=== PATIENT | male | born 1980 | race Caucasian/White ===

== ENCOUNTER 2017-04-03 18:49 | Inpatient (IN) ==
[2017-04-03] MEDS ORDERED: NS 1,000 ML IV ONE (18:55)
[2017-04-03] MEDS ORDERED: SALINE FLUSH 10ml SYRINGE IVF PRN (18:56)
--- NOTE | 2017-04-03 19:03 | Emergency Department Report ---
Overdose HPI - General Stated Complaint: Overdose Time Seen by Provider: 04/03/17 18:54 Source: patient, family, EMS Mode of arrival: EMS Limitations: altered mental status - History of Present Illness HPI Narrative: Patient was in an argument earlier in the day with his girlfriend, and then sometime 26 and 6:30 the patient took a handful of Ativan and Flexeril that he had left over. Family found the patient around 6:30, and states that he was lethargic and hypersomnolent, and he had 2 empty pill bottles lying next to him. Patient has attempted overdose with suicidal ideation in the past, but at this time we can get no further information about this. Patient might have taken as many as 60 0.5 mg Ativan and 30 10 mg Flexeril. Prescriptions were written earlier in the month, but the family has noted whether he took any of those medications prior to tonight. EMS found the patient to be lethargic and somnolent, but maintaining his O2 saturations. He was given 2 doses of flumazenil with little improvement. MD complaint: intentional overdose Onset (ago): hour(s) Timing confirmed by: family member - Related Data Home Medications Medication Instructions Recorded Confirmed BuPROPion XL [Wellbutrin Xl] 300 mg PO DAILY 04/03/17 04/03/17 Budesonide [Entocort EC] 9 mg PO DAILY 04/03/17 04/03/17 Citalopram [Celexa] 40 mg PO HS 04/03/17 04/03/17 Cyclobenzaprine [Flexeril] 10 mg PO TID PRN 04/03/17 04/03/17 Diphenoxylate/Atropine [Lomotil] 1 tab PO QID PRN 04/03/17 04/03/17 Hydrocortisone Sod Succinate 100 mg IM Q2M 04/03/17 04/03/17 [Solu-Cortef] Infliximab [Remicade] 100 mg IV Q2M 04/03/17 04/03/17 LORazepam [Ativan] 0.5 mg PO BID PRN 04/03/17 04/03/17 Mesalamine [Pentasa] 1,000 mg PO BID 04/03/17 04/03/17 Oxycodone/Apap 10 [Percocet 1 tab PO Q6H PRN 04/03/17 04/03/17 10/325] azaTHIOprine [Imuran] 100 mg PO DAILY 04/03/17 04/03/17 Allergies Allergy/AdvReac Type Severity Reaction Status Date / Time No Known Allergies Allergy Verified 04/03/17 19:08 Review of Systems Review of Systems: Review of systems is significantly limited due to the patient's lethargy and somnolence [facility] Patient Stated Medical History Other GI Yes: CROHNS DISEASE Depression Yes Substance Use Disorder Yes Other Behavioral Health Yes: [facility] Medical History (Last Updated 01/17/17 @ 11:36 by HOWARD Betancourt) Anxiety (Chronic Medical) Crohn disease (Chronic Medical) Depression (Chronic Medical) Depression with suicidal ideation/suicide attempts, overdose Surgical History: hip replacement. colectomy resection Family History: Family History (Last Updated 01/17/17 @ 11:38 by HOWARD Betancourt) Mother Arthritis High blood pressure High cholesterol Father High blood pressure Arthritis Paternal Grandfather Lung cancer Heart attack - Social History Smoking status: Current every day smoker Physical Exam - Limitations Limitations: altered mental status (patient is significantly altered secondary to medication/drugs,) - General General appearance: alert, lethargic - Normal Exams: Head:: Normocephalic without trauma Eyes:: Pupils are PERRLA w/ EOMI, No scleral icterus, irritation, or foreign bodies noted ENMT:: No facial trauma, nasal exudates, pharyngeal erythema, or exudates are noted Neck:: Full range of motion, without adenopathy, JVD, bruits or thyromegaly Chest/Respirations:: Clear all marsh, with good airflow, and symmetry bilaterally Cardiovascular:: Regular rate and rhythm, without murmur or gallop, Pulses 2+ all extremities, capillary refill, <2 seconds all extremities Abdomen:: Bowel sounds positive, soft, non-tender, non-distended, no hepatosplenomegaly, masses or bruits noted Lymphatic:: No lymphadenopathy, or lymphedema noted Musculoskeletal:: No tenderness, or deformity noted, good range of motion, all extremities Integumentary:: No rashes, hives, or bruising noted, hair and nails, without abnormality Neurological:: cranial nerves, exams w/o gross deficits, to observation - Neurological Exam Neurological exam: Present: CN II-XII intact, motor sensory deficit, reflexes normal. Absent: alert, oriented X3 - Psychiatric Psychiatric exam: Present: depressed. Absent: normal affect, normal mood Course Vital Signs Temperature 97.1 F 04/03/17 18:49 Pulse Rate 112 H 04/03/17 18:49 Respiratory Rate 20 04/03/17 18:49 Blood Pressure 152/94 H 04/03/17 18:49 Pulse Oximetry 99 04/03/17 18:49 Temperature 97.1 F 04/03/17 18:49 Pulse Rate 92 04/03/17 19:18 Respiratory Rate 20 04/03/17 18:49 Blood Pressure 152/94 H 04/03/17 18:49 Pulse Oximetry 99 04/03/17 18:49 Overdose - MDM Narrative Medical decision making narrative: Patient initially tachycardic, given 1 L normal saline IV fluid bolus Despite multiple aggressive attempts to encourage the patient to engage in conversation and give answers to questions, patient remained severely somnolent , would arouse to pain, but would refuse to answer questions and immediately fall back asleep. CBC - normal CMP - normal UDS - normal, except positive for opiates try cyclics benzodiazepines and marijuana EtOH - negative Tylenol/salicylates - normal Patient discussed with Dr. Pepe, admitted for outpatient observation in the ICU. - Lab Data Result diagrams: 04/03/17 19:07 04/03/17 19:07 Lab Results 04/03/17 04/03/17 04/03/17 Range/Units 18:49 19:07 19:07 WBC 11.7 H (4.5-11.0) T/MM3 RBC 3.81 L (4.50-5.90) M/MM3 Hgb 12.9 L (13.5-17.5) GM/DL Hct 37.5 L (41-53) % MCV 98.4 (80-100) UM3 MCH 33.9 (26-34) UUG MCHC 34.4 (31-37) GM/DL RDW Std Deviation 45.7 (36.9-50.2) FL Plt Count 351 (130-400) T/MM3 MPV 9.4 (9.4-12.4) UM3 Immature Gran % (Auto) 0.2 (0.0-0.5) % Neut % (Auto) 65.1 (33-66) % Lymph % (Auto) 21.0 L (23-45) % [place] % (Auto) 8.2 (0-9.0) % Eos % (Auto) 4.9 H (0-4) % Baso % (Auto) 0.6 (0-2) % Neut # (Auto) 7.6 (1.8-7.7) T/MM3 Lymph # (Auto) 2.5 (1-4.8) T/MM3 [place] # (Auto) 1.0 H (0-0.8) T/MM3 Eos # (Auto) 0.6 H (0-0.5) T/MM3 Baso # (Auto) 0.1 (0-0.2) T/MM3 Abs Immat Gran (auto) 0.02 (0.00-0.03) T/MM3 Turbidity < 20 (0-20) Sodium 142 (134-144) MEQ/L Potassium 3.5 L (3.6-5) MEQ/L Chloride 105 (98-107) MEQ/L Carbon Dioxide 27 (22-30) MEQ/L Anion Gap 10 (5-15) MEQ/L BUN 9.0 (9-20) MG/DL Creatinine 0.9 (0.8-1.5) MG/DL GFR Calculation 95 BUN/Creatinine Ratio 10 (6-26) RATIO Glucose 74 L (75-110) MG/DL Calculated Osmolality 271 (261-280) MOSM/KG Calcium 9.4 (8.4-10.2) MG/DL Total Bilirubin 0.60 (0.20-1.30) MG/DL Icterus Index < 2 (0-7) AST 26 (17-59) U/L ALT 34 (21-72) U/L Alkaline Phosphatase 96 (38-126) U/L Total Protein 8.0 (6.3-8.2) G/DL Albumin 4.0 (3.5-5.0) G/DL Globulin 4.0 H (2.4-3.6) G/DL Albumin/Globulin Ratio 1.0 L (1.1-2.2) RATIO Specimen Hemolysis 41 H (0-25) Ur Collection Type Urine, catheter Urine Color Yellow (YELLOW) Urine Clarity Clear Urine pH 6.0 (5.0-8.0) Ur Specific [place] 1.010 L (1.015-1.025) Urine Protein Negative (NEGATIVE) Urine Glucose (UA) Negative (NEGATIVE) Urine Ketones Negative (NEGATIVE) Urine Occult Blood Trace-intact (NEGATIVE) Urine Nitrate Negative (NEGATIVE) Urine Bilirubin Negative (NEGATIVE) Urine Urobilinogen 0.2 (NORMAL) EU/DL Ur Leukocyte Esterase Negative (NEGATIVE) Urinalysis Comment Microscopic not ind. Salicylates < 1.0 L (2-20) MG/DL Urine Opiates Screen ng/mL Ur Oxycodone Screen ng/mL Urine Methadone Screen ng/mL Ur Propoxyphene Screen ng/mL Acetaminophen < 10 L (10-30) UG/ML Ur Barbiturates Screen ng/mL U Tricyclic Antidepress ng/mL Ur Phencyclidine Scrn ng/mL Ur Amphetamines Screen ng/mL U Methamphetamines Scrn ng/mL U Benzodiazepines Scrn ng/mL Urine Cocaine Screen ng/mL U Cannabinoids Screen ng/mL Ur Drug Screen Confirm Alcohol, Quantitative <10 (<10) MG/DL 04/03/17 04/03/17 Range/Units 19:07 19:07 WBC (4.5-11.0) T/MM3 RBC (4.50-5.90) M/MM3 Hgb (13.5-17.5) GM/DL Hct (41-53) % MCV (80-100) UM3 MCH (26-34) UUG MCHC (31-37) GM/DL RDW Std Deviation (36.9-50.2) FL Plt Count (130-400) T/MM3 MPV (9.4-12.4) UM3 Immature Gran % (Auto) (0.0-0.5) % Neut % (Auto) (33-66) % Lymph % (Auto) (23-45) % [place] % (Auto) (0-9.0) % Eos % (Auto) (0-4) % Baso % (Auto) (0-2) % Neut # (Auto) (1.8-7.7) T/MM3 Lymph # (Auto) (1-4.8) T/MM3 [place] # (Auto) (0-0.8) T/MM3 Eos # (Auto) (0-0.5) T/MM3 Baso # (Auto) (0-0.2) T/MM3 Abs Immat Gran (auto) (0.00-0.03) T/MM3 Turbidity (0-20) Sodium (134-144) MEQ/L Potassium (3.6-5) MEQ/L Chloride (98-107) MEQ/L Carbon Dioxide (22-30) MEQ/L Anion Gap (5-15) MEQ/L BUN (9-20) MG/DL Creatinine (0.8-1.5) MG/DL GFR Calculation BUN/Creatinine Ratio (6-26) RATIO Glucose (75-110) MG/DL Calculated Osmolality (261-280) MOSM/KG Calcium (8.4-10.2) MG/DL Total Bilirubin (0.20-1.30) MG/DL Icterus Index (0-7) AST (17-59) U/L ALT (21-72) U/L Alkaline Phosphatase (38-126) U/L Total Protein (6.3-8.2) G/DL Albumin (3.5-5.0) G/DL Globulin (2.4-3.6) G/DL Albumin/Globulin Ratio (1.1-2.2) RATIO Specimen Hemolysis (0-25) Ur Collection Type Urine Color (YELLOW) Urine Clarity Urine pH (5.0-8.0) Ur Specific [place] (1.015-1.025) Urine Protein (NEGATIVE) Urine Glucose (UA) (NEGATIVE) Urine Ketones (NEGATIVE) Urine Occult Blood (NEGATIVE) Urine Nitrate (NEGATIVE) Urine Bilirubin (NEGATIVE) Urine Urobilinogen (NORMAL) EU/DL Ur Leukocyte Esterase (NEGATIVE) Urinalysis Comment Salicylates (2-20) MG/DL Urine Opiates Screen Positive ng/mL Ur Oxycodone Screen Negative ng/mL Urine Methadone Screen Negative ng/mL Ur Propoxyphene Screen Negative ng/mL Acetaminophen (10-30) UG/ML Ur Barbiturates Screen Negative ng/mL U Tricyclic Antidepress Positive ng/mL Ur Phencyclidine Scrn Negative ng/mL Ur Amphetamines Screen Negative ng/mL U Methamphetamines Scrn Negative ng/mL U Benzodiazepines Scrn Positive ng/mL Urine Cocaine Screen Negative ng/mL U Cannabinoids Screen Positive ng/mL Ur Drug Screen Confirm Sent out Alcohol, Quantitative (<10) MG/DL Disposition Clinical Impression: Depression with suicidal ideation Polysubstance overdose Qualifiers: Encounter type: initial encounter Injury intent: intentional self-harm Qualified Code(s): T50.902A - Poisoning by unspecified drugs, medicaments and biological substances, intentional self-harm, initial encounter Disposition: [facility] Condition: Stable Prescriptions: No Action Cyclobenzaprine [Flexeril] 10 mg PO TID PRN PRN Reason: Prn Orders azaTHIOprine [Imuran] 100 mg PO DAILY Hydrocortisone Sod Succinate [Solu-Cortef] 100 mg IM Q2M Diphenoxylate/Atropine [Lomotil] 1 tab PO QID PRN PRN Reason: Diarrhea Mesalamine [Pentasa] 1,000 mg PO BID BuPROPion XL [Wellbutrin Xl] 300 mg PO DAILY Budesonide [Entocort EC] 9 mg PO DAILY Infliximab [Remicade] 100 mg IV Q2M Oxycodone/Apap 10/325 [Percocet 10/325] 1 tab PO Q6H PRN PRN Reason: Pain LORazepam [Ativan] 0.5 mg PO BID PRN PRN Reason: Prn Orders Citalopram [Celexa] 40 mg PO HS - Seen By: physician
--- OUTSIDE RECORDS SUMMARY | 2017-04-03 19:15 | External Medical Summary | Referral Summary ---
:1980 Author Organization [facility] Address [address] [place] [address] Care Team Providers Name Role Phone Reji Huerta Primary Care Physician Encounter VC Date(s): 03/18/16 - 03/18/16 [facility] [address] [place] [address]- us Discharge Disposition: 01-Home or Self Care Attending Physician: Barby Gonzalez III, MD Admitting Physician: Barby Gonzalez III, MD Vital Signs No data available for this section Problem List Condition Effective Dates Status Health Status Informant Acne(Confirmed) 1994 Active Acute low back pain(Confirmed) Active Acute pain(Confirmed) Active Depression(Confirmed) Active Allergic rhinitis/Hay Fever(Confirmed) 2003 Active Amblyopia/Lazy eye(Confirmed) 1993 Active Asthma(Confirmed) 1992 Active At risk for infection(Confirmed)1 Active 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 Chronic depression(Confirmed) Active Constipation(Confirmed) 1994 Active Crohn's disease(Confirmed) Active High risk medication use(Confirmed) Active Impaired skin integrity(Confirmed)2 Active Knowledge deficit(Confirmed)3 Active Chronic fatigue(Confirmed) Active Sacroiliitis(Confirmed) Active Tobacco user(Confirmed) Active patient Ulcers(Confirmed) Active Chicken pox(Confirmed) 1986 Active 1Problem added automatically by system based on initiation of At Risk for Infection in Nutrition Planof [id number] added automatically by system based on initiation of Impaired Skin Integrity Plan of [id number] added automatically by system based on initiation of Knowledge Deficit Plan of Care Allergies, Adverse Reactions, Alerts Substance Reaction Severity Status Demerol HCl Hives Active meperidine Hives Active Medications azaTHIOprine 50 mg oral tablet 100 mg 2 tabs, Oral, Daily, 2 tabs daily with food, # 60 tabs, 6 Refill(s), Pharmacy: [facility] #[id number], 2 tabs Oral Daily,Instr:2 tabs daily ; with food Start Date: 09/04/15 Status: OrderedBlood pressure med Blood pressure med, Thinks it is lisinopril 5-10mg. Prescribed by Dr. Montiel, 0 Refill(s) Start Date: 05/05/15 Status: Orderedbudesonide 3 mg oral capsule, extended release 9 mg 3 caps, Oral, Daily, # 90 caps, 11 Refill(s), Pharmacy: [facility] # [id number], 3 caps Oral Daily Start Date: 09/04/15 Status: OrderedCeleXA 20 mg oral tablet 20 mg 1 tabs, Oral, Daily, DC order for Vibryd, # 30 tabs, 1 Refill(s), Pharmacy : [facility] #[id number], 1 tabs Oral Daily,Instr:DC order for Vibryd Start Date: 02/12/16 Status: OrderedPentasa 500 mg oral capsule, extended release See Instructions, 2 caps Oral BID, # 96 caps, 0 Refill(s), samples given to patient (Rx) Start Date: 04/22/15 Status: OrderedPercocet 10/325 oral tablet 1 tabs, Oral, q6hr, as needed for pain, rx must last 30 days, # 120 tabs, 0 Refill(s) Start Date: 03/07/16 Status: OrderedRemicade 100 mg intravenous injection See Instructions, Infuse 10mg/kg IV q [address] gonzalez on 03/18/16 Premed: Solu-cortef 100mg IV push. Diagnosis: K50.80, may take tylenol and chinmay for oral premeds, # 1 vials, 0 Refill(s), other reason (Rx) Start Date: 12/25/13 Status: OrderedSolu-CORTEF Act-O-Vial 100 mg injection See Instructions, 100mg iv push premed for remicade, # 1 vials, 0 Refill(s), other reason (Rx) Start Date: 12/25/13 Status: OrderedSoma 350 mg oral tablet 350 mg 1 tabs, Oral, TID, N. Darrian's RX must last 30 days, # 90 tabs, 0 Refill (s) Start Date: 03/11/16 Status: OrderedWellbutrin XL 300 mg/24 hours oral tablet, extended release 300 mg 1 tabs, Oral, Daily, # 30 tabs, 11 Refill(s), Pharmacy: [facility] #[id number], 1 tabs OralDaily Start Date: 09/04/15 Status: OrderedZofran ODT 4 mg oral tablet, disintegrating 4 mg 1 tabs, Oral, q8hr, as needed for nausea/vomiting, # 10 tabs, 0 Refill(s), Pharmacy: [facility] #[id number], 1 tabs Oral q8hr,PRN:as needed for nausea/ vomiting Start Date: 02/18/16 Status: Ordered Results No data available for this section Immunizations Vaccine Date Refusal Reason pneumococcal 13-valent conjugate vaccine 04/23/15 tetanus-diphth toxoids (Td) adult/adol 01/13/95 Procedures Procedure Date Related Diagnosis Body Site Resection Colon1 06/02/15 Colonoscopy 05/28/15 Hip replacement -RIGHT per Dr Bautista 2012 eye surgery 1993 Colectomy, partial; with resection, with colostomy or ileostomy and creation of mucofistula Colonoscopy colostomy reversed left colon resection with colostomy 1auto-populated from documented surgical case Social History Social History Type Response Smoking Status Current every day smoker; Type: Cigarettes; Tobacco use per day : 1 Pack Assessment and Plan No data available for this section
--- OUTSIDE RECORDS SUMMARY | 2017-04-03 19:15 | External Medical Summary | Referral Summary ---
:1980 Author Organization [facility] Address [address] [place] [address] Care Team Providers Name Role Phone Huerta Reji F Primary Care Physician Encounter [facility] [id number] Date(s): 03/25/16 - 03/25/16 [facility] [address] [place] [address]- [place] Discharge Diagnosis: High risk medication use Discharge Diagnosis: Chronic depression Discharge Disposition: 01-Home or Self Care Attending Physician: Candida Luke Admitting Physician: Candida Luke Vital Signs Most recent to oldest [Reference Range]: 1 Apical Heart Rate [60-100 bpm] 84 bpm (03/25/16 10:59 AM) Blood Pressure [90-140/60-90 mmHg] 112/78 mmHg (03/25/16 10:59 AM) Problem List Condition Effective Dates Status Health [...] At Risk for Infection in Nutrition Planof [id number] added automatically by system based on initiation of Impaired Skin Integrity Plan of [id number] added automatically by system based on initiation of Knowledge Deficit Plan of Care Allergies, Adverse Reactions, Alerts Substance Reaction Severity Status Demerol HCl Hives Active meperidine Hives Active Medications azaTHIOprine 50 mg oral tablet 100 mg 2 tabs, Oral, Daily, 2 tabs daily with food, # 60 tabs, 6 Refill(s), Pharmacy: [facility] #[id number], 2 tabs Oral Daily,Instr:2 tabs daily ; with food Start Date: 09/04/15 Status: OrderedBlood pressure med Blood pressure med, Thinks it is lisinopril 5-10mg. Prescribed by Dr. Montiel, 0 Refill(s) Start Date: 05/05/15 Status: Orderedbudesonide 3 mg oral capsule, extended release 9 mg 3 caps, Oral, Daily, # 90 caps, 11 Refill(s), Pharmacy: [facility] # [id number], 3 caps Oral Daily Start Date: 09/04/15 Status: OrderedCeleXA 20 mg oral tablet 20 mg 1 tabs, Oral, Daily, DC order for Vibryd, # 30 tabs, 1 Refill(s), Pharmacy : [facility] #[id number], 1 tabs Oral Daily,Instr:DC order for Vibryd [...] Daily, # 30 tabs, 11 Refill(s), Pharmacy: [facility] #[id number], 1 tabs OralDaily Start Date: 09/04/15 Status: Ordered Results No data available for this section Immunizations Vaccine Date Refusal Reason pneumococcal 13-valent conjugate vaccine 04/23/15 tetanus-diphth toxoids (Td) adult/adol 01/13/95 Procedures Procedure Date Related Diagnosis Body Site Collection of venous blood by venipuncture 03/25/16 Resection Colon1 06/02/15 Colonoscopy 05/28/15 Hip replacement [...] day : 1 Pack Assessment and Plan Extracted from: Title: Office Visit Note Author: Candida Luke Date: 03/25/16 Assessment/Plan 1.Crohn's disease history of bowel resection anddisease notwell controlled Ordered: [employer]-[place] 2.High risk medication use 3.Chronic depression on Celexa and it is helping This is a very pleasant 35-year-old male with known history of ileocolonic Crohn's disease. And history of bowel resections. Currently having a flare of his disease with multiple watery diarrhea stools . He is negative for C. difficile. Currently taking Remicade 10 mg every 8 weeks, azathioprine, budesonide and Pentasa. He ran out of his Pentasa 1-2 months ago. Overall he does not feel that the Remica de is working as well as it used to. He is been on this medication for several years. After long discussion with Dr. Gonzalez who joint us in office visit he is recommending checking blood levels for aza thioprinemetabolites as well as possibly considering changing the Remicade to another biologic.
--- OUTSIDE RECORDS SUMMARY | 2017-04-03 19:15 | External Medical Summary | Referral Summary ---
:1980 Author Organization [facility], [facility] Address [address] [place] [address] [place] [address] Care Team Providers Name Role Phone Reji Huerta Primary Care Physician Encounter VC Date(s): 10/23/14 - 10/23/14 [facility], [address] [place] [address] Discharge Disposition: 01-Home or Self Care Attending Physician: Song Colorado MD Admitting Physician: Song Colorado MD Vital Signs Most recent to oldest [Reference Range]: 1 Temperature Tympanic [36.6-38.1 degC] 36.8 degC (10/23/14 6:30 PM) Peripheral Pulse Rate [60-100 bpm] 78 bpm (10/23/14 6:30 PM) Blood Pressure [90-140/60-90 mmHg] 118/70 mmHg (10/23/14 6:30 PM) SpO2 99 % (10/23/14 6:30 PM) Problem List Condition Effective Dates Status Health Status Informant Acne(Confirmed) 1994 Active Acute low back pain(Confirmed) Active Depression(Confirmed) Active Allergic rhinitis/Hay Fever(Confirmed) 2003 Active Amblyopia/Lazy eye(Confirmed) 1994 Active Asthma(Confirmed) 1992 Active 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 Constipation(Confirmed) 1994 Active Crohn's disease(Confirmed) Active High risk medication use(Confirmed) Active Sacroiliitis(Confirmed) Active Tobacco user(Confirmed) Active patient Ulcers(Confirmed) Active Chicken pox(Confirmed) 1986 Active Allergies, Adverse Reactions, Alerts Substance Reaction Severity Status Demerol HCl Active meperidine Hives Active Medications amLODIPine 20 mg, Oral, Daily, 0 Refill(s) Start Date: 04/06/15 Status: OrderedazaTHIOprine 50 mg oral tablet 2 tabs, Oral, Daily, 2 tabs daily with food, # 60 tabs, 3 Refill(s), Pharmacy : [facility] #[id number], 2 tabs Oral Daily,Instr:2 tabs daily ; with food Start Date: 05/23/14 Status: Orderedbudesonide 3 mg oral capsule, extended release 6 mg 2 caps, Oral, Daily, # 90 unknown unit, 2 Refill(s), eRx: [facility] #[id number], TAKE 3 CAPSULES BY MOUTH EVERY MORNING. Start Date: 03/18/15 Status: OrderedPentasa 500 mg oral capsule, extended release See Instructions, 2 caps Oral BID, # 96 caps, 0 Refill(s), samples given to patient (Rx) Start Date: 04/22/15 Status: OrderedPercocet 10/325 oral tablet 1 tabs, Oral, q6hr, as needed for pain, # 60 tabs, 0 Refill(s) Start Date: 04/20/15 Status: OrderedpredniSONE 20 mg oral tablet 20 mg 1 tabs, Oral, TID, 0 Refill(s) Start Date: 04/06/15 Status: OrderedRemicade 100 mg intravenous injection See Instructions, Infuse 10mg/kg IV q 6 weeks. Premed: Solu-cortef 100mg IV push. Diagnosis: K50.80,# 1 vials, 0 Refill(s), other reason (Rx) Start Date: 12/25/13 Status: OrderedSolu-CORTEF Act-O-Vial 100 mg injection See Instructions, 100mg iv push premed for remicade, # 1 vials, 0 Refill(s), other reason (Rx) Start Date: 12/25/13 Status: OrderedSoma 350 mg oral tablet 350 mg 1 tabs, Oral, TID, N. Darrian's FILLED BY DOC FOR DR HUERTA, # 60 tabs, 0 Refill(s) Start Date: 04/08/15 Status: OrderedtraZODone 50 mg oral tablet 50 mg 1 tabs, Oral, Bedtime (once a day), # 30 tabs, 0 Refill(s), Pharmacy: [facility] #[id number], 1 tabs Oral Bedtime (once a day) Start Date: 12/23/14 Status: OrderedViibryd 20 mg oral tablet mg tabs, Oral, Daily, 0 Refill(s) Start Date: 04/06/15 Status: OrderedWellbutrin XL 150 mg/24 hours oral tablet, extended release See Instructions, 3 tabs Oral q24hr, # 60 tabs, 2 Refill(s) Start Date: 06/25/14 Status: Ordered Results No data available for this section Immunizations Vaccine Date Refusal Reason pneumococcal 13-valent conjugate vaccine 04/23/15 tetanus-diphth toxoids (Td) adult/adol 01/13/95 Procedures Procedure Date Related Diagnosis Body Site Hip replacement -RIGHT per Dr Bautista 2012 eye surgery 1993 Colectomy, partial; with resection, with colostomy or ileostomy and creation of mucofistula Colonoscopy colostomy reversed left colon resection with colostomy Social History Social History Type Response Smoking Status Current every day smoker; Type: Cigarettes; Tobacco use per day : 1 Pack Assessment and Plan Extracted from: Title: Ambulatory Patient Education Author: Song Colorado MD Date: Emergency Medicine Abdominal Pain, Adult Many things can cause abdominal pain. Usually, abdominal pain is not caused by a disease and will improve without treatment. It can often be observed and treated at home. Your health care provider will do a physical exam and possibly order blood tests and X-rays to help determine the seriousness of your pain. However, in many cases, more time must pass before a clear cause of the pain can be found. Be fore that point, your health care provider may not know if you need more testing or further treatment. HOME CARE INSTRUCTIONS Monitor your abdominal pain for any changes. The following actions may help to alleviate any discomfort you are experiencing: Only take vkzk-zxo-jzrcjmx or prescription medicines as directed by your health care provider. Do not take laxatives unless directed to do so by your health care provider. Try a clear liquid diet (broth, tea, or water) as directed by your health care provider. Slowly move to a bland diet as tolerated. SEEK MEDICAL CARE IF: You have unexplained abdominal pain. You have abdominal pain associated with nausea or diarrhea. You have pain when you urinate or have a bowel movement. You experience abdominal pain that wakes you in the night. You have abdominal pain that is worsened or improved by eating food. You have abdominal pain that is worsened with eating fatty foods. SEEK IMMEDIATE MEDICAL CARE IF: Your pain does not go away within 2 hours. You have a fever. You keep throwing up (vomiting ). Your pain is felt only in portions of the abdomen, such as the right side or the left lower portion of the abdomen. You pass bloody or black tarry stools. MAKE SURE YOU: Understand these instructions. Will watch your condition. Will get help right away if you are not doing well or get worse. Document Released: 03/08/2006 Document Revised: 03/19/2014 Document Reviewed: 02/05/2014 [facility] Patient Information 2014 [employer] [facility]. No follow up information was provided. Extracted from: Title: Office Visit Note Author: Song Colorado MD Date: 10/23/14 Assessment/Plan Abdominal pain Sent to [facility] ER for evaluation due to level of pain. A work/school note was offered and deferred by the patient. Nursing assitance toER was offered and declined. Crohn's disease This issue is stable and appropriate refills, lab, and f/u have been discussed. Denies recent blood in the stool or diarrhea. Limping See above. To ER for evaluation.
--- OUTSIDE RECORDS SUMMARY | 2017-04-03 19:15 | External Medical Summary | Referral Summary ---
:1980 Author Organization [facility], [facility] Address [address] [place] [address] [place] [address] Care Team Providers Name Role Phone Reji Huerta Primary Care Physician Encounter VC Date(s): 04/23/15 - 04/23/15 [facility] [place] [place] [address] [place] Discharge Disposition: 01-Home or Self Care Attending Physician: Reji Huerta MD Vital Signs No data available for this section Problem List Condition Effective Dates Status Health Status Informant Acne(Confirmed) 1994 Active Acute low back pain(Confirmed) Active Depression(Confirmed) Active Allergic rhinitis/Hay Fever(Confirmed) 2003 Active Amblyopia/Lazy eye(Confirmed) 1993 Active Asthma(Confirmed) 1991 Active 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 Constipation(Confirmed) 1994 Active Crohn's disease(Confirmed) Active [...] # 60 tabs, 3 Refill(s), Pharmacy : [facility] #[id number], 2 tabs Oral Daily,Instr:2 tabs daily ; with food Start Date: 05/23/14 Status: Orderedbudesonide 3 mg oral capsule, extended release 6 mg 2 caps, Oral, Daily, # 90 unknown unit, 2 Refill(s), eRx: [facility] #[id number], TAKE 3 CAPSULES BY MOUTH EVERY MORNING. [...] tablet 350 mg 1 tabs, Oral, TID, Juli Colmenares's FILLED BY DOC FOR DR HUERTA, # 60 tabs, 0 Refill(s) Start Date: 04/08/15 Status: OrderedtraZODone 50 mg oral tablet 50 mg 1 tabs, Oral, Bedtime (once a day), # 30 tabs, 0 Refill(s), Pharmacy: [facility] #[id number], 1 tabs Oral Bedtime (once a day) [...]
--- OUTSIDE RECORDS SUMMARY | 2017-04-03 19:15 | External Medical Summary | Referral Summary ---
:1980 Author Organization [facility], [facility] Address [address] [place] [address] Care Team Providers Name Role Phone Reji Huerta Primary Care Physician Encounter VC Date(s): 09/07/15 - 09/07/15 [facility], [facility] [address] [place] [address]- [place] Discharge Disposition: 01-Home or Self Care Attending Physician: Barby Murray III, MD Admitting Physician: Barby Murray III, MD Vital Signs No data available for this section Problem List Condition Effective Dates Status Health Status Informant Acne(Confirmed) 1994 Active Acute low back pain(Confirmed) Active Acute pain(Confirmed) Active Depression(Confirmed) Active Allergic rhinitis/Hay Fever(Confirmed) 2003 Active Amblyopia/Lazy eye(Confirmed) 1993 Active Asthma(Confirmed) 1992 Active At risk for infection(Confirmed)1 Active 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 Constipation(Confirmed) 1994 Active Crohn's disease(Confirmed) Active High risk medication use(Confirmed) Active Impaired skin integrity(Confirmed)2 Active Knowledge deficit(Confirmed)3 Active Sacroiliitis(Confirmed) Active Tobacco user(Confirmed) Active patient Ulcers(Confirmed) Active Chicken pox(Confirmed) 1986 Active 1Problem added automatically by system based on initiation of At Risk for Infection in Nutrition Planof [id number] added automatically by system based on initiation of Impaired Skin Integrity Plan of [id number] added automatically by system based on initiation of Knowledge Deficit Plan of Care Allergies, Adverse Reactions, Alerts Substance Reaction Severity Status Demerol HCl Hives Active meperidine Hives Active Medications amLODIPine 20 mg, Oral, Daily, 0 Refill(s) Start Date: 04/06/15 Status: OrderedazaTHIOprine 50 mg oral tablet 100 mg 2 tabs, Oral, Daily, 2 tabs daily with food, # 60 tabs, 6 Refill(s), Pharmacy: [facility] #[id number], 2 tabs Oral Daily,Instr:2 tabs daily ; with food Start Date: 09/04/15 Status: OrderedBlood pressure med Blood pressure med, Thinks it is lisinopril 5-10mg. Prescribed by Dr. Montiel, 0 Refill(s) Start Date: 05/05/15 Status: Orderedbudesonide 3 mg oral capsule, extended release 9 mg 3 caps, Oral, Daily, # 90 caps, 11 Refill(s), Pharmacy: [facility] # [id number], 3 caps Oral Daily Start Date: 09/04/15 Status: Orderedibuprofen 600 mg oral tablet 600 mg 1 tabs, Oral, q6hr, 0 Refill(s) Start Date: 06/05/15 Status: OrderedPentasa 500 mg oral capsule, extended release See Instructions, 2 caps Oral BID, # 96 caps, 0 Refill(s), samples given to patient (Rx) Start Date: 04/22/15 Status: OrderedPercocet 10/325 oral tablet 1 tabs, Oral, q6hr, as needed for pain, # 120 tabs, 0 Refill(s) Start Date: 08/10/15 Status: OrderedpredniSONE 10 mg oral tablet 10 mg 1 tabs, Oral, Daily, 3 a day and call once he starts the remicade and will instruct on taper, # 30 tabs, 1 Refill(s), Pharmacy: [facility] # [id number], 1 tabs Oral Daily,Instr:3 a day and call once he starts the remicade and will instruct on t... Start Date: 09/04/15 Status: OrderedRemicade 100 mg intravenous injection See [...] tablet 350 mg 1 tabs, Oral, TID, NJoaquin Colmenares's, # 90 tabs, 0 Refill(s) Start Date: 08/10/15 Status: OrderedtraZODone 50 mg oral tablet 50 mg 1 tabs, Oral, Bedtime (once a day), # 30 tabs, 0 Refill(s), Pharmacy: [facility] #[id number], 1 tabs Oral Bedtime (once a day) Start Date: 12/23/14 Status: OrderedViibryd 20 mg oral tablet mg tabs, Oral, Daily, 0 Refill(s) Start Date: 04/06/15 Status: OrderedWellbutrin XL 300 mg/24 hours oral tablet, extended release 300 mg 1 tabs, Oral, Daily, # 30 tabs, 11 Refill(s), Pharmacy: [facility] #[id number], 1 tabs OralDaily Start Date: 09/04/15 Status: Ordered Results No data available for this section Immunizations Vaccine Date Refusal Reason pneumococcal 13-valent conjugate vaccine 04/23/15 tetanus-diphth toxoids (Td) adult/adol 01/13/95 Procedures Procedure Date Related Diagnosis Body Site Resection Colon1 06/02/15 Hip replacement -RIGHT per Dr Bautista 2012 [...]
--- OUTSIDE RECORDS SUMMARY | 2017-04-03 19:15 | External Medical Summary | Referral Summary ---
:1980 Author Organization [facility], [facility] Address [address] [place] [address] Care Team Providers Name Role Phone Bradley Reji Garcia Primary Care Physician Encounter VC Date(s): 12/08/14 - 12/08/14 [facility], [facility] [address] [place] [address] [place] Discharge Disposition: 01-Home or Self Care Attending Physician: Barby Murray III, MD Admitting Physician: Barby Murray III, MD Referring Physician: Barby Murray III, MD Vital Signs [...] At Risk for Infection in Nutrition Planof [id number] added automatically by system based on initiation of Impaired Skin Integrity Plan of [id number] added automatically by system based on initiation of Knowledge Deficit Plan of Care Allergies, Adverse Reactions, Alerts Substance Reaction Severity Status Demerol HCl Hives Active meperidine Hives Active Medications amLODIPine 20 mg, Oral, Daily, 0 Refill(s) Start Date: 04/06/15 Status: OrderedazaTHIOprine 50 mg oral tablet 100 mg 2 tabs, Oral, Daily, 2 tabs daily with food, # 60 tabs, 3 Refill(s), Pharmacy: [facility] #[id number], 2 tabs Oral Daily,Instr:2 tabs daily ; with food Start Date: 05/06/15 Status: OrderedBlood pressure med Blood pressure med, Thinks it is lisinopril 5-10mg. Prescribed by Dr. Montiel, 0 Refill(s) Start Date: 05/05/15 Status: Orderedbudesonide 3 mg oral capsule, extended release 9 mg 3 caps, Oral, Daily, # 90 caps, 11 Refill(s), Pharmacy: [facility] # [id number], 3 caps Oral Daily Start Date: 05/14/15 Status: OrderedColace 100 mg oral capsule 100 mg 1 caps, Oral, BID, 0 Refill(s) Start Date: 06/05/15 Status: Orderedibuprofen 600 mg oral tablet 600 [...] # 120 tabs, 0 Refill(s) Start Date: 06/08/15 Status: OrderedRemicade 100 mg intravenous injection See [...] 350 mg 1 tabs, Oral, TID, N. Darrian's, # 90 tabs, 0 Refill(s) Start Date: 06/08/15 Status: OrderedtraZODone 50 mg oral tablet 50 mg 1 tabs, Oral, Bedtime (once a day), # 30 tabs, 0 Refill(s), Pharmacy: [facility] #[id number], 1 tabs Oral Bedtime (once a day) [...] Type: Cigarettes; Tobacco use per day : Less than Pack Assessment and Plan No data available for this section
--- OUTSIDE RECORDS SUMMARY | 2017-04-03 19:15 | External Medical Summary | Referral Summary ---
:1980 Author Organization [facility] Address [address] [place] [address] Care Team Providers Name Role Phone Reji Huerta Primary Care Physician Encounter VC Date(s): 03/30/15 - 03/30/15 [facility] [address] [place] [address]- [place] Discharge Disposition: 01-Home or Self Care Attending Physician: Barby Gonzalez III, MD Admitting Physician: Barby Gonzalez III, MD Referring Physician: Barby Gonzalez III, MD Vital Signs No data available for this section Problem List Condition Effective Dates Status Health Status Informant Acne(Confirmed) 1994 Active Acute low back pain(Confirmed) Active Allergic rhinitis/Hay Fever(Confirmed) 2003 Active Amblyopia/Lazy eye(Confirmed) 1993 Active Asthma(Confirmed) 1991 Active 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 Constipation(Confirmed) 1994 Active Crohn's disease(Confirmed) Active Depression(Confirmed) Active High risk medication use(Confirmed) Active Sacroiliitis(Confirmed) Active Ulcers(Confirmed) Active Chicken pox(Confirmed) 1986 Active Allergies, Adverse Reactions, Alerts Substance Reaction Severity Status Demerol HCl Active meperidine Hives Active Medications azaTHIOprine 50 mg oral tablet 2 tabs, Oral, Daily, 2 tabs daily with food, # 60 tabs, 3 Refill(s), Pharmacy : [facility] #[id number], 2 tabs Oral Daily,Instr:2 tabs daily ; with food Start Date: 05/23/14 Status: Orderedbudesonide 3 mg oral capsule, extended release See Instructions, TAKE 3 CAPSULES BY MOUTH EVERY MORNING., # 90 unknown unit, 2 Refill(s), eRx: [facility] #[id number], TAKE 3 CAPSULES BY MOUTH EVERY MORNING. Start Date: 03/18/15 Status: OrderedPercocet 10/325 oral tablet 1 tabs, Oral, q6hr, as needed for pain, # 50 tabs, 0 Refill(s) Start Date: 03/03/15 Status: OrderedPercocet 7.5/325 oral tablet 1 tabs, Oral, q6hr, as needed for pain, # 30 tabs, 0 Refill(s) Start Date: 12/01/14 Status: OrderedRemicade 100 mg intravenous injection See Instructions, 10mg/kg iv q 6 weeks for diag 555.[address] gonzalez premed solucortef 100mg iv, # 1 vials, 0 Refill(s), other reason (Rx) Start Date: 12/25/13 Status: OrderedSolu-CORTEF Act-O-Vial 100 mg injection See Instructions, 100mg iv push premed for remicade, # 1 vials, 0 Refill(s), other reason (Rx) Start Date: 12/25/13 Status: OrderedSoma 350 mg oral tablet 350 mg 1 tabs, Oral, TID, N. Darrian's FILLED BY DOC FOR DR HUERTA, # 60 tabs, 0 Refill(s) Start Date: 02/09/15 Status: OrderedtraZODone 50 mg oral tablet 50 mg 1 tabs, Oral, Bedtime (once a day), # 30 tabs, 0 Refill(s), Pharmacy: [facility] #[id number], 1 tabs Oral Bedtime (once a day) Start Date: 12/23/14 Status: OrderedWellbutrin XL 150 mg/24 hours oral tablet, extended release See Instructions, 2 tabs Oral q24hr, # 60 tabs, 2 Refill(s) Start Date: 06/25/14 Status: Ordered Results No data available for this section Immunizations Vaccine Date Refusal Reason tetanus-diphth toxoids (Td) adult/adol 01/13/95 Procedures Procedure [...]
--- OUTSIDE RECORDS SUMMARY | 2017-04-03 19:15 | External Medical Summary | Referral Summary ---
:1980 Author Organization [facility], [facility] Address [address] [place] [address] [place] [address] Care Team Providers Name Role Phone Reji Huerta Primary Care Physician Encounter VC Date(s): 10/29/14 - 10/29/14 [facility], [address] [place] [address]- Discharge Diagnosis: Crohn's disease Discharge Disposition: 01-Home or Self Care Attending Physician: Monica Noble APRN Admitting Physician: Monica Noble APRN Referring Physician: Reji Huerta MD Vital Signs Most recent to oldest [Reference Range]: 1 Temperature Tympanic [36.6-38.1 degC] 36.7 degC (10/29/14 6:22 PM) Peripheral Pulse Rate [60-100 bpm] 74 bpm (10/29/14 6:22 PM) Blood Pressure [90-140/60-90 mmHg] 136/84 mmHg (10/29/14 6:22 PM) SpO2 99 % (10/29/14 6:22 PM) Problem List Condition Effective Dates Status Health Status Informant Acne(Confirmed) 1994 Active Acute low back pain(Confirmed) Active Depression(Confirmed) Active Allergic rhinitis/Hay Fever(Confirmed) 2003 Active Amblyopia/Lazy eye(Confirmed) 1993 Active Asthma(Confirmed) 1992 Active 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 Constipation(Confirmed) 1994 Active [...] food, # 60 tabs, 3 Refill(s), Pharmacy: [facility] #[id number], 2 tabs Oral Daily,Instr:2 tabs daily ; with food Start Date: 05/06/15 Status: OrderedBlood pressure med Blood pressure med, Thinks it is lisinopril 5-10mg. Prescribed by Dr. Montiel, 0 Refill(s) Start Date: 05/05/15 Status: Orderedbudesonide 3 mg oral capsule, extended release 6 mg 2 caps, Oral, Daily, # 90 unknown unit, 2 Refill(s), eRx: [facility] #[id number], TAKE 3 CAPSULES BY MOUTH EVERY MORNING. Start Date: 03/18/15 Status: OrderedPentasa 500 mg oral capsule, extended release See Instructions, 2 caps Oral BID, # 96 caps, 0 Refill(s), samples given to patient (Rx) Start Date: 04/22/15 Status: OrderedPercocet 10/325 oral tablet 1 tabs, Oral, q6hr, as needed for pain, # 120 tabs, 0 Refill(s) Start Date: 05/05/15 Status: OrderedpredniSONE 20 mg oral tablet 20 [...] N. Darrian's FILLED BY DOC FOR DR HURETA, # 90 tabs, 0 Refill(s) Start Date: 05/05/15 Status: OrderedtraZODone 50 mg oral tablet 50 mg 1 tabs, Oral, Bedtime (once a day), # 30 tabs, 0 Refill(s), Pharmacy: [facility] #[id number], 1 tabs Oral Bedtime (once a day) [...] : Less than Pack Assessment and Plan Extracted from: Title: Office Visit Note-IC Author: Monica Noble APRN Date: 10/29/14 Assessment/Plan Crohn's disease Encourage patient to continue to follow with Dr. Murray for Crohn's disease. Pleased that his symptoms are gradually improving. Note provided for him to be excused from work October 28 and October 29. Return October 30. Discussed with the patient I did not feel comfortable changing his pain medications. Discussed that it is important for him to follow-up with his PCP regarding chronic pain management needs. He voices understanding. Ordered: Office Visit Level 3 Est 10980
--- OUTSIDE RECORDS SUMMARY | 2017-04-03 19:15 | External Medical Summary | Referral Summary ---
:1980 Author Organization [facility], [address] [place] [address] Care Team Providers Name Role Phone Reji Huerta Primary Care Physician Encounter VC Date(s): 04/08/15 - 04/08/15 [facility] [address] [place] [address] Discharge Diagnosis: Depression Discharge Diagnosis: Crohn's disease Discharge Disposition: 01-Home or Self Care Attending Physician: Reji Huerta MD Admitting Physician: Reji Huerta MD Vital Signs Most recent to oldest [Reference Range]: 1 Blood Pressure [90-140/60-90 mmHg] 134/80 mmHg (04/08/15 10:12 AM) Problem List Condition Effective Dates Status Health Status Informant Acne(Confirmed) 1994 Active Acute low back pain(Confirmed) Active Acute pain(Confirmed) Active Depression(Confirmed) Active Allergic rhinitis/Hay Fever(Confirmed) 2003 Active Amblyopia/Lazy eye(Confirmed) 1993 Active Asthma(Confirmed) 1991 Active At risk for infection(Confirmed)1 Active 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 Constipation(Confirmed) 1994 Active Crohn's disease(Confirmed) Active High risk medication use(Confirmed) Active Impaired skin integrity(Confirmed)2 Active Knowledge deficit(Confirmed)3 Active Sacroiliitis(Confirmed) Active Tobacco user(Confirmed) Active patient Ulcers(Confirmed) Active Chicken pox(Confirmed) 1986 Active 1Problem added automatically by system based on initiation of At Risk for Infection in Nutrition Planof [id number] added automatically by system based on initiation of Impaired Skin Integrity Plan of [id number] added automatically by system based on initiation of Knowledge Deficit Plan of Care Allergies, Adverse Reactions, Alerts Substance Reaction Severity Status Demerol HCl Hives Active meperidine Hives Active Medications amLODIPine 20 mg, Oral, Daily, 0 Refill(s) Start Date: 04/06/15 Status: OrderedazaTHIOprine 50 mg oral tablet 100 mg 2 tabs, Oral, Daily, 2 tabs daily with food, # 60 tabs, 6 Refill(s), Pharmacy: [facility] #[id number], 2 tabs Oral Daily,Instr:2 tabs daily ; with food Start Date: 09/04/15 Status: OrderedBlood pressure med Blood pressure med, Thinks it is lisinopril 5-10mg. Prescribed by Dr. Montiel, 0 Refill(s) Start Date: 05/05/15 Status: Orderedbudesonide 3 mg oral capsule, extended release 9 mg 3 caps, Oral, Daily, # 90 caps, 11 Refill(s), Pharmacy: [facility] # [id number], 3 caps Oral Daily Start Date: 09/04/15 Status: OrderedPentasa 500 mg oral capsule, extended release See Instructions, 2 caps Oral BID, # 96 caps, 0 Refill(s), samples given to patient (Rx) Start Date: 04/22/15 Status: OrderedPercocet 10/325 oral tablet 1 tabs, Oral, q6hr, as needed for pain, # 120 tabs, 0 Refill(s) Start Date: 10/08/15 Status: OrderedpredniSONE 10 mg oral tablet 10 mg 1 tabs, Oral, Daily, 3 a day and call once he starts the remicade and will instruct on taper, # 30 tabs, 1 Refill(s), Pharmacy: [facility] # [id number], 1 tabs Oral Daily,Instr:3 a day and [...] 350 mg 1 tabs, Oral, TID, NJoaquin Guptan's, # 90 tabs, 0 Refill(s) Start Date: 10/08/15 Status: OrderedtraZODone 50 mg oral tablet 50 mg 1 tabs, Oral, Bedtime (once a day), # 30 tabs, 0 Refill(s), Pharmacy: [facility] #[id number], 1 tabs Oral Bedtime (once a day) Start Date: 12/23/14 Status: OrderedWellbutrin XL 300 mg/24 hours oral tablet, extended release 300 mg 1 tabs, Oral, Daily, # 30 tabs, 11 Refill(s), Pharmacy: [facility] #[id number], 1 tabs OralDaily Start Date: 09/04/15 Status: Ordered Results No data available for this section Immunizations Vaccine Date Refusal Reason pneumococcal 13-valent conjugate vaccine 04/23/15 tetanus-diphth toxoids (Td) adult/adol 01/13/95 Procedures Procedure Date Related Diagnosis Body Site Resection Colon1 06/02/15 Hip replacement -RIGHT per Dr Bautista 2013 eye surgery 1993 Colectomy, partial; with resection, with colostomy or ileostomy and creation of mucofistula Colonoscopy colostomy reversed left colon resection with colostomy 1auto-populated from documented surgical case Social History Social History Type Response Smoking Status Current every day smoker; Type: Cigarettes; Tobacco use per day : 1 Pack Assessment and Plan Extracted from: Title: Ambulatory Patient Education Author: Reji Huerta MD Date: Family Medicine Colitis Colitis is inflammation of the colon. Colitis can be a short-term or long- standing (chronic) illness. Crohn's disease and ulcerative colitis are 2 types of colitis which are chronic. They usually require lifelong treatment. CAUSES There are many different causes of colitis, including: Viruses. Germs (bacteria). Medicine reactions. SYMPTOMS Diarrhea. Intestinal bleeding. Pain. Fever. Throwing up (vomiting). Tiredness (fatigue). Weight loss. Bowel blockage. DIAGNOSIS The diagnosis of colitis is based on examination and stool or blood tests. X- rays, CT scan, and colonoscopy may also be needed. TREATMENT Treatment may include: Fluids given through the vein (intravenously). Bowel rest (nothing to eat or drink for a period of time). Medicine for pain and diarrhea. Medicines (antibiotics) that kill germs. Cortisone medicines. Surgery. HOME CARE INSTRUCTIONS Get plenty of rest. Drink enough water and fluids to keep your urine clear or pale yellow. Eat a well-balanced diet. Call your caregiver for follow-up as recommended. SEEK IMMEDIATE MEDICAL CARE IF: You develop chills. You have an oral temperature above 102 F (38.9 C), not controlled by medicine. You have extreme weakness, fainting, or dehydration. You have repeated vomiting. You develop severe belly (abdominal) pain or are passing bloody or tarry stools. MAKE SURE YOU: Understand these instructions. Will watch your condition. Will get help right away if you are not doing well or get worse. Document Released: 07/06/2005 Document Revised: 08/20/2012 Document Reviewed: 10/01/2010 [facility] Patient Information 2015 [employer]. This information is not intended to replace advice given to you by your health care provider. Make sure you discuss any questions you have with your health care provider. No follow up information was provided. Extracted from: Title: Office Visit Note Author: Reji Huerta MD Date: 04/08/15 Assessment/Plan Adjustment disorder with depressed mood, Depression Continue with the current medications. Ordered: Office Visit Level 4 Est 97666 Crohn's disease, Crohn's disease of both small and large intestine with other complication Continue with the present program of treatment and follow up with the GI doc. Ordered: Office Visit Level 4 Est 57698 Orders: budesonide, 6 mg 2 caps, Oral, Daily, # 90 unknown unit, 2 Refill(s) , [id number], TAKE 3 CAPSULES BY MOUTH EVERY MORNING. buPROPion, See Instructions, 3 tabs Oral q24hr, # 60 tabs, 2 Refill(s) carisoprodol, 350 mg 1 tabs, Oral, TID, N. Darrian's FILLED BY DOC FOR DR HUERTA, # 60 tabs, 0 Refill(s) oxyCODONE-acetaminophen, 1 tabs, Oral, q6hr, as needed for pain, # 60 tabs, 0 Refill(s)
--- OUTSIDE RECORDS SUMMARY | 2017-04-03 19:15 | External Medical Summary | Referral Summary ---
:1980 Author Organization [facility] Address [address] [place] [address] Care Team Providers Name Role Phone Bradley Reji Garcia Primary Care Physician Encounter VC Date(s): 10/27/14 - 10/27/14 [facility] [address] [place] [address] [place] Discharge Disposition: 01-Home or [...] # 60 tabs, 3 Refill(s), Pharmacy: [facility] #[id number], 2 tabs Oral Daily,Instr:2 tabs daily ; with food Start Date: 05/06/15 Status: OrderedBlood pressure med Blood pressure med, Thinks it is lisinopril 5-10mg. Prescribed by Dr. Montiel, 0 Refill(s) Start Date: 05/05/15 Status: Orderedbudesonide 3 mg oral capsule, extended release 6 mg 2 caps, Oral, Daily, # 90 unknown unit, 2 Refill(s), eRx: [facility] #[id number], TAKE 3 CAPSULES BY MOUTH EVERY MORNING. [...] N. Darrian's FILLED BY DOC FOR DR GUEVARA, # 90 tabs, 0 Refill(s) Start Date: 05/05/15 Status: OrderedtraZODone 50 mg oral tablet 50 mg 1 tabs, Oral, Bedtime (once a day), # 30 tabs, 0 Refill(s), Pharmacy: [facility] #[id number], 1 tabs Oral Bedtime (once a day) [...]
--- OUTSIDE RECORDS SUMMARY | 2017-04-03 19:15 | External Medical Summary | Referral Summary ---
:1980 Author Organization [facility] Address [address] [place] [address] [place] [address] Care Team Providers Name Role Phone Reji Huerta Primary Care Physician Encounter VC Date(s): 07/01/16 - 07/01/16 [facility] [address] [place] [address] [place] Discharge Disposition: 01-Home or Self Care Attending Physician: Reji Huerta MD Admitting Physician: Reji Huerta MD Vital Signs Most recent to oldest [Reference Range]: 1 Blood Pressure [90-140/60-90 mmHg] 104/68 mmHg (07/01/16 1:59 PM) Problem List Condition Effective Dates Status [...] At Risk for Infection in Nutrition Planof [id number] added automatically by system based on initiation of Impaired Skin Integrity Plan of [id number] added automatically by system based on initiation of Knowledge Deficit Plan of Care Allergies, Adverse Reactions, Alerts Substance Reaction Severity Status Demerol HCl Hives Active meperidine Hives Active Medications Anusol-HC 2.5% topical cream 1 tamie, Topical, TID, # 30 g, 2 Refill(s), Pharmacy: [facility] #[id number] Start Date: 05/20/16 Status: OrderedAtivan 0.5 mg oral tablet 0.5 mg 1 tabs, Oral, Bedtime (once a day), # 30 tabs, 0 Refill(s) Start Date: 07/01/16 Status: OrderedazaTHIOprine 50 mg oral tablet See Instructions, TAKE TWO TABLETS BY MOUTH DAILY, # 60 tabs, eRx: [facility] #[id number], TAKE TWO TABLETS BY MOUTH DAILY Start Date: 06/14/16 Status: Orderedbudesonide 3 mg oral capsule, extended release 9 mg 3 caps, Oral, Daily, # 90 caps, 11 Refill(s), Pharmacy: [facility] # [id number], 3 caps Oral Daily Start Date: 09/04/15 Status: OrderedCeleXA 20 mg oral tablet 20 mg 1 tabs, Oral, Daily, 2 tabs oral daily, increased by PV but he wants Dr. Huerta to refill., #30 tabs, 1 Refill(s), Pharmacy: [facility] #[id number], 1 tabs Oral Daily,Instr:2 tabs oral daily,increased by PV but he wants Dr. Huerta to refill. Start Date: 07/01/16 Status: OrderedPentasa 500 mg oral capsule, extended release See Instructions, 2 caps Oral BID, # 96 caps, 0 Refill(s), samples given to patient (Rx) Start Date: 04/22/15 Status: OrderedPercocet 10/325 oral tablet 1 tabs, Oral, q6hr, as needed for pain, rx must last 30 days, # 120 tabs, 0 Refill(s) Start Date: 06/10/16 Status: OrderedRemicade 100 mg intravenous injection See [...] 90 tabs, 0 Refill (s) Start Date: 06/10/16 Status: OrderedVistaril 25 mg oral capsule 25 mg 1 caps, Oral, TID, # 90 caps, 1 Refill(s), Pharmacy: [facility] # [id number], 1 caps Oral TID Start Date: 05/25/16 Status: OrderedWellbutrin XL 300 mg/24 hours oral tablet, extended release See Instructions, 1.5 tabs oral daily, increased by PV but pt wants Dr. Huerta to refill., # 45 tabs, 11 Refill(s), Pharmacy: [facility] #[id number], 1 tabs Oral Daily Start Date: 09/04/15 Status: Ordered Results No data available for this section Immunizations Given and Recorded Vaccine Date Status Refusal Reason pneumococcal 13-valent conjugate vaccine 04/23/15 Given tetanus-diphth toxoids (Td) adult/adol 01/13/95 Given Procedures Procedure Date Related Diagnosis Body Site Colonoscopy 06/15/16 Resection Colon1 06/02/15 Colonoscopy 05/28/15 Hip replacement [...]
--- OUTSIDE RECORDS SUMMARY | 2017-04-03 19:15 | External Medical Summary | Referral Summary ---
:1980 Author Organization Via [facility] Address [address] [place] [address] Care Team Providers Name Role Phone Reji Huerta Primary Care Physician Encounter VC Date(s): 08/26/15 - 08/26/15 [facility] [place] [address] [place] [address] Discharge Disposition: 07-Left Against Medical Advice Vital Signs Most recent to oldest [Reference Range]: 1 Temperature Oral [35.8-37.3 degC] 36.7 degC (08/26/15 5:41 PM) Peripheral Pulse Rate [60-100 bpm] 89 bpm (08/26/15 5:41 PM) Respiratory Rate [14-20 br/min] 16 br/min (08/26/15 5:41 PM) Blood Pressure [90-140/60-90 mmHg] 122/78 mmHg (08/26/15 5:41 PM) SpO2 98 % (08/26/15 5:41 PM) Problem List Condition Effective Dates Status [...] At Risk for Infection in Nutrition Planof [id number] added automatically by system based on initiation of Impaired Skin Integrity Plan of [id number] added automatically by system based on initiation of Knowledge Deficit Plan of Care Allergies, Adverse Reactions, Alerts Substance Reaction Severity Status Demerol HCl Hives Active meperidine Hives Active Medications amLODIPine 20 mg, Oral, Daily, 0 Refill(s) Start Date: 04/06/15 Status: OrderedazaTHIOprine 50 mg oral tablet 100 mg 2 tabs, Oral, Daily, 2 tabs daily with food, # 60 tabs, 3 Refill(s), Pharmacy: [facility] #[id number], 2 tabs Oral Daily,Instr:2 tabs daily ; with food Start Date: 05/06/15 Status: OrderedBlood pressure med Blood pressure med, Thinks it is lisinopril 5-10mg. Prescribed by Dr. Montiel, 0 Refill(s) Start Date: 05/05/15 Status: Orderedbudesonide 3 mg oral capsule, extended release 9 mg 3 caps, Oral, Daily, # 90 caps, 11 Refill(s), Pharmacy: [facility] # [id number], 3 caps Oral Daily Start Date: 05/14/15 [...] tabs, 0 Refill(s) Start Date: 08/10/15 Status: OrderedRemicade 100 mg intravenous injection See [...] day), # 30 tabs, 0 Refill(s), Pharmacy: [facility] #[id number], 1 tabs Oral Bedtime (once a day) [...]
--- OUTSIDE RECORDS SUMMARY | 2017-04-03 19:15 | External Medical Summary | Referral Summary ---
:1980 Author Organization [facility] Address [address] [place] [address] Care Team Providers Name Role Phone Bradley Reji Garcia Primary Care Physician Encounter VC Date(s): 05/11/15 - 05/11/15 [facility] [address] [place] [address] [place] Discharge Disposition: 01-Home or [...] food, # 60 tabs, 3 Refill(s), Pharmacy: [facility] #[id number], 2 tabs Oral Daily,Instr:2 tabs daily ; with food Start Date: 05/06/15 Status: OrderedBlood pressure med Blood pressure med, Thinks it is lisinopril 5-10mg. Prescribed by Dr. Montiel, 0 Refill(s) Start Date: 05/05/15 Status: Orderedbudesonide 3 mg oral capsule, extended release 6 mg 2 caps, Oral, Daily, # 90 unknown unit, 2 Refill(s), eRx: [facility] #[id number], TAKE 3 CAPSULES BY MOUTH EVERY MORNING. [...] day), # 30 tabs, 0 Refill(s), Pharmacy: [facility] #[id number], 1 tabs Oral Bedtime (once a day) [...]
--- OUTSIDE RECORDS SUMMARY | 2017-04-03 19:16 | External Medical Summary | Referral Summary ---
:1980 Author Organization [facility] Address [address] [place] [address] Care Team Providers Name Role Phone Reji Huerta Primary Care Physician Encounter [facility] [id number] Date(s): 05/14/15 - 05/14/15 [facility] [address] [place] [address] [place] Discharge Diagnosis: Tobacco user Discharge Diagnosis: Crohn's disease Discharge Diagnosis: High risk medication use Discharge Disposition: 01-Home or Self Care Attending Physician: Candida Luke Admitting Physician: Candida Luke Vital Signs Most recent to oldest [Reference Range]: 1 Peripheral Pulse Rate [60-100 bpm] 73 bpm (05/14/15 8:02 AM) Blood Pressure [90-140/60-90 mmHg] 106/71 mmHg (05/14/15 8:02 AM) Problem List Condition Effective Dates Status [...] food, # 60 tabs, 3 Refill(s), Pharmacy: [facility] #[id number], 2 tabs Oral Daily,Instr:2 tabs daily ; with food Start Date: 05/06/15 Status: OrderedBlood pressure med Blood pressure med, Thinks it is lisinopril 5-10mg. Prescribed by Dr. Montiel, 0 Refill(s) Start Date: 05/05/15 Status: Orderedbudesonide 3 mg oral capsule, extended release 9 mg 3 caps, Oral, Daily, # 90 caps, 11 Refill(s), Pharmacy: [facility] # [id number], 3 caps Oral Daily Start Date: 05/14/15 Status: Orderedmetoclopramide 10 mg oral tablet 10 mg 1 tabs, Oral, q6hr, # 6 tabs, 0 Refill(s), Pharmacy: [facility] # [id number], 1 tabs Oral q6hr Start Date: 05/14/15 Stop Date: 06/14/15 Status: OrderedPentasa 500 mg oral capsule, extended release See Instructions, 2 caps Oral BID, # 96 caps, 0 Refill(s), samples given to patient (Rx) Start Date: 04/22/15 Status: OrderedPercocet 10/325 oral tablet 1 tabs, Oral, q6hr, as needed for pain, # 120 tabs, 0 Refill(s) Start Date: 05/05/15 Status: OrderedRemicade 100 mg intravenous injection See [...] FILLED BY DOC FOR DR HUERTA, # 90 tabs, 0 Refill(s) Start Date: 05/05/15 Status: OrderedtraZODone 50 mg oral tablet 50 mg 1 tabs, Oral, Bedtime (once a day), # 30 tabs, 0 Refill(s), Pharmacy: [facility] #[id number], 1 tabs Oral Bedtime (once a day) [...]
--- OUTSIDE RECORDS SUMMARY | 2017-04-03 19:16 | External Medical Summary | Referral Summary ---
:1980 Author Organization [facility] Address [address] [place] [address] [place] [address] Care Team Providers Name Role Phone Reji Huerta Primary Care Physician Encounter VC Date(s): 05/05/15 - 05/05/15 [facility] [address] [place] [address]- Discharge Diagnosis: Crohn's disease Discharge Disposition: 01-Home or Self Care Attending Physician: Reji Huerta MD Admitting Physician: Reji Huerta MD Vital Signs Most recent to oldest [Reference Range]: 1 Blood Pressure [90-140/60-90 mmHg] 134/80 mmHg (05/05/15 10:43 AM) Problem List Condition Effective Dates Status [...] # 60 tabs, 3 Refill(s), Pharmacy : [facility] #[id number], 2 tabs Oral Daily,Instr:2 tabs daily ; with food Start Date: 05/23/14 Status: OrderedBlood pressure med Blood pressure med, Thinks it is lisinopril 5-10mg. Prescribed by Dr. Montiel, 0 Refill(s) Start Date: 05/05/15 Status: Orderedbudesonide 3 mg oral capsule, extended release 6 mg 2 caps, Oral, Daily, # 90 unknown unit, 2 Refill(s), eRx: [facility] #[id number], TAKE 3 CAPSULES BY MOUTH EVERY MORNING. [...] # 30 tabs, 0 Refill(s), Pharmacy: [facility] #[id number], 1 tabs Oral Bedtime (once a day) [...] Author: Reji Huerta MD Date: Family Medicine Crohn Disease Crohn disease is a long-term (chronic) soreness and redness (inflammation) of the intestines (bowel). It can affect any portion of the digestive tract, from the mouth to the anus. It can also cause prob lems outside the digestive tract. Crohn disease is closely related to a disease called ulcerative colitis (together, these two diseases are called inflammatory bowel disease). CAUSES The cause of Crohn disease is not known. One theory is that, in an easily affected person, the immune system is triggered to attack the body's own digestive tissue. Crohn disease runs in families. It se ems to be more common in certain geographic areas and amongst certain races. There are no clear-cut dietary causes. SYMPTOMS Crohn disease can cause many different symptoms since it can affect many different parts of the body. Symptoms include: Fatigue. Weight loss. Chronic diarrhea, sometime bloody. Abdominal pain and cramps. Fever. Ulcers or canker sores in the mouth or rectum. Anemia (low red blood cells). Arthritis, skin problems, and eye problems may occur. Complications of Crohn disease can include: Series of holes (perforation) of the bowel. Portions of the intestines sticking to each other (adhesions). Obstruction of the bowel. Fistula formation, typically in the rectal area but also in other areas. A fistula is an opening between the bowels and the outside, or between the bowels and another organ. A painful crack in the mucous membrane of the anus (rectal fissure). DIAGNOSIS Your caregiver may suspect Crohn disease based on your symptoms and an exam. Blood tests may confirm that there is a problem. You may be asked to submit a stool specimen for examination. X-rays and CT s cans may be necessary. Ultimately, the diagnosis is usually made after a procedure that uses a flexible tube that is inserted via your mouth or your anus. This is done under sedation and is called eithe r an upper endoscopy or colonoscopy. With these tests, the specialist can take tiny tissue samples and remove them from the inside of the bowel (biopsy). Examination of this biopsy tissue under a micros cope can reveal Crohn disease as the cause of your symptoms. Due to the many different forms that Crohn disease can take, symptoms may be present for several years before a diagnosis is made. TREATMENT Medications are often used to decrease inflammation and control the immune system. These include medicines related to aspirin, steroid medications, and newer and stronger medications to slow down the im mune system. Some medications may be used as suppositories or enemas. A number of other medications are used or have been studied. Your caregiver will make specific recommendations. HOME CARE INSTRUCTIONS Symptoms such as diarrhea can be controlled with medications. Avoid foods that have a laxative effect such as fresh fruit, vegetables, and dairy products. During flare-ups, you can rest your bowel by refraining from solid foods. Drink clear liquids frequently during the day. (Electrolyte or rehydrating fluids are best. Your caregiver can help you with suggestions.) Drink often to prevent loss of body fluids (dehydration). When diarrhea has cleared, eat small meals and more frequently. Avoid food additives and stimulants such as caffeine (coffee, tea, or chocolate). Enzyme supplements may help i f you develop intolerance to a sugar in dairy products (lactose). Ask your caregiver or dietitian about specific dietary instructions. Try to maintain a positive attitude. Learn relaxation techniques such as self-hypnosis, mental imaging, and muscle relaxation. If possible, avoid stresses which can aggravate your condition. Exercise regularly. Follow your diet. Always get plenty of rest. SEEK MEDICAL CARE IF: Your symptoms fail to improve after a week or two of new treatment. You experience continued weight loss. You have ongoing cramps or loose bowels. You develop a new skin rash, skin sores, or eye problems. SEEK IMMEDIATE MEDICAL CARE IF: You have worsening of your symptoms or develop new symptoms. You have a fever. You develop bloody diarrhea. You develop severe abdominal pain. MAKE SURE YOU: Understand these instructions. Will watch your condition. Will get help right away if you are not doing well or get worse. Document Released: 03/08/2006 Document Revised: 10/13/2014 Document Reviewed: 02/04/2008 [facility] Patient Information 2015 [facility]. This information is not intended to replace advice given to you by your health care provider. Make sure you discuss any questions you have with your health care provider. No follow up information was provided. Extracted from: Title: Office Visit Note Author: Reji Huerta MD Date: 05/05/15 Assessment/Plan Crohn's disease, Crohn's disease of both small and large intestine with other complication Continue with the current medications. Finish off the tapering of the prednisone. Continue with the pain medication. Ordered: Office Visit Level 3 Est [id number] Orders: carisoprodol, 350 mg 1 tabs, Oral, TID, NJoaquin Colmenares's FILLED BY DOC FOR DR HUERTA, # 90 tabs, 0 Refill(s) oxyCODONE-acetaminophen, 1 tabs, Oral, q6hr, as needed for pain, # 120 tabs, 0 Refill(s)
--- OUTSIDE RECORDS SUMMARY | 2017-04-03 19:16 | External Medical Summary | Referral Summary ---
:1980 Author Organization [facility] Address [address] [place] [address] Care Team Providers Name Role Phone Bradley Reji Garcia Primary Care Physician Encounter VC Date(s): 05/28/15 - 05/28/15 [facility] [address] [place] [address]- [place] Discharge Diagnosis: High risk medication use Discharge Diagnosis: Crohn's disease Discharge Diagnosis: Colonic stricture Discharge Disposition: 01-Home or Self Care Attending Physician: Barby Murray III, MD Vital Signs Most recent to oldest [Reference Range]: 1 Temperature Oral [35.8-37.3 degC] 36.7 degC (05/28/15 8:11 AM) Peripheral Pulse Rate [60-100 bpm] 81 bpm (05/28/15 8:11 AM) Respiratory Rate [14-20 br/min] 16 br/min (05/28/15 8:11 AM) Blood Pressure [90-140/60-90 mmHg] 137/70 mmHg (05/28/15 8:11 AM) SpO2 99 % (05/28/15 8:11 AM) Problem List Condition Effective Dates Status [...] food, # 60 tabs, 3 Refill(s), Pharmacy: [facility] #[id number], 2 tabs Oral Daily,Instr:2 tabs daily ; with food Start Date: 05/06/15 Status: OrderedBlood pressure med Blood pressure med, Thinks it is lisinopril 5-10mg. Prescribed by Dr. Montiel, 0 Refill(s) Start Date: 05/05/15 Status: Orderedbudesonide 3 mg oral capsule, extended release 9 mg 3 caps, Oral, Daily, # 90 caps, 11 Refill(s), Pharmacy: [facility] # [id number], 3 caps Oral Daily Start Date: 05/14/15 Status: Orderedmetoclopramide 10 mg oral tablet 10 mg 1 tabs, Oral, q6hr, # 6 tabs, 0 Refill(s), Pharmacy: [facility] # [id number], 1 tabs Oral q6hr Start Date: 05/14/15 [...] # 30 tabs, 0 Refill(s), Pharmacy: [facility] #[id number], 1 tabs Oral Bedtime (once a day) [...]
--- OUTSIDE RECORDS SUMMARY | 2017-04-03 19:16 | External Medical Summary | Referral Summary ---
:1980 Author Organization [facility] [place], [facility] Address [address] [place] [address] [place] [address] Care Team Providers Name Role Phone Reji Huerta Primary Care Physician Encounter VC Date(s): 04/06/15 - 04/06/15 [facility] [place], [address] [place] [address] [place] Discharge Diagnosis: Tobacco use Discharge Diagnosis: Crohn's disease Discharge Disposition: 01-Home or Self Care Attending Physician: Mauricio Page PA-C Admitting Physician: Mauricio Page PA-C Vital Signs Most recent to oldest [Reference Range]: 1 Temperature Tympanic [36.6-38.1 degC] 36.6 degC (04/06/15 1:53 PM) Apical Heart Rate [60-100 bpm] 76 bpm (04/06/15 1:53 PM) Blood Pressure [90-140/60-90 mmHg] 154/84 mmHg *HI* (04/06/15 1:53 PM) SpO2 98 % (04/06/15 1:53 PM) Problem List Condition Effective Dates Status [...] At Risk for Infection in Nutrition Planof [id number] added automatically by system based on initiation of Impaired Skin Integrity Plan of [id number] added automatically by system based on initiation of Knowledge Deficit Plan of Care Allergies, Adverse Reactions, Alerts Substance Reaction Severity Status Demerol HCl Hives Active meperidine Hives Active Medications amLODIPine 20 mg, Oral, Daily, 0 Refill(s) Start Date: 04/06/15 Status: OrderedazaTHIOprine 50 mg oral tablet 100 mg 2 tabs, Oral, Daily, 2 tabs daily with food, # 60 tabs, 6 Refill(s), Pharmacy: [facility] #[id number], 2 tabs Oral Daily,Instr:2 tabs daily ; with food Start Date: 09/04/15 Status: OrderedBlood pressure med Blood pressure med, Thinks it is lisinopril 5-10mg. Prescribed by Dr. Montiel, 0 Refill(s) Start Date: 05/05/15 Status: Orderedbudesonide 3 mg oral capsule, extended release 9 mg 3 caps, Oral, Daily, # 90 caps, 11 Refill(s), Pharmacy: [facility] # [id number], 3 caps Oral Daily Start Date: 09/04/15 [...] # 30 tabs, 1 Refill(s), Pharmacy: [facility] # [id number], 1 tabs Oral Daily,Instr:3 a day and [...] # 30 tabs, 0 Refill(s), Pharmacy: [facility] #[id number], 1 tabs Oral Bedtime (once a day) Start Date: 12/23/14 Status: OrderedWellbutrin XL 300 mg/24 hours oral tablet, extended release 300 mg 1 tabs, Oral, Daily, # 30 tabs, 11 Refill(s), Pharmacy: [facility] #[id number], 1 tabs OralDaily Start Date: 09/04/15 Status: [...] Pack Assessment and Plan Extracted from: Title: Crohn's disease Author: Mauricio Page PA-C Date: 04/06/15 Assessment/Plan Crohn's disease A work note was provided for the patient. Due to his history using Soma, Percocetand seeing Dr. Huerta on Monday, I declined to provide him with any additional medication. Diagnosis and treatment discussed. Patient advised to follow up with PCP in 2- 3 days. Patient stable upon discharge, alert and orientated with no apparent distress, and indicated understanding of discharge instructions. If symptoms worsen at any time, patient will go to the nearest ER for further evaluation. Tobacco use Encouragedsmoking cessation.
--- OUTSIDE RECORDS SUMMARY | 2017-04-03 19:16 | External Medical Summary | Referral Summary ---
:1980 Author Organization [facility], [address] [place] [address] Care Team Providers Name Role Phone Reji Huerta Primary Care Physician Encounter VC Date(s): 04/21/16 - 04/21/16 [facility] [place] [place] [address]- Discharge Diagnosis: Depression Discharge Diagnosis: Crohn's disease Discharge Diagnosis: Crohn's disease of both small and large intestine with other complication Discharge Disposition: 01-Home or Self Care Attending Physician: Reji Huerta MD Admitting Physician: Reji Huerta MD Vital Signs Most recent to oldest [Reference Range]: 1 Blood Pressure [90-140/60-90 mmHg] 118/64 mmHg (04/21/16 10:22 AM) Problem List Condition Effective Dates Status [...] At Risk for Infection in Nutrition Planof [id number] added automatically by system based on initiation of Impaired Skin Integrity Plan of [id number] added automatically by system based on initiation of Knowledge Deficit Plan of Care Allergies, Adverse Reactions, Alerts Substance Reaction Severity Status Demerol HCl Hives Active meperidine Hives Active Medications azaTHIOprine 50 mg oral tablet 100 mg 2 tabs, Oral, Daily, 2 tabs daily with food, # 60 tabs, 6 Refill(s), Pharmacy: [facility] #[id number], 2 tabs Oral Daily,Instr:2 tabs daily ; with food Start Date: 09/04/15 Status: OrderedBlood pressure med Blood pressure med, Thinks it is lisinopril 5-10mg. Prescribed by Dr. Montiel, 0 Refill(s) Start Date: 05/05/15 Status: Orderedbudesonide 3 mg oral capsule, extended release 9 mg 3 caps, Oral, Daily, # 90 caps, 11 Refill(s), Pharmacy: [facility] # [id number], 3 caps Oral Daily Start Date: 09/04/15 Status: OrderedCeleXA 20 mg oral tablet 20 mg 1 tabs, Oral, Daily, 2 tabs oral daily, increased by PV but he wants Dr. Huerta to refill., #30 tabs, 1 Refill(s), Pharmacy: [facility] #[id number], 1 tabs Oral Daily,Instr:DC order for Vibryd Start Date: 02/12/16 Status: OrderedNuLYTELY with Flavor Packs oral powder for reconstitution 240 mL, Oral, q15min, # 4,000 mL, 0 Refill(s), Pharmacy: [facility] # [id number] Start Date: 04/15/16 Status: OrderedPentasa 500 mg oral capsule, extended release See Instructions, 2 caps Oral BID, # 96 caps, 0 Refill(s), samples given to patient (Rx) Start Date: 04/22/15 Status: OrderedPercocet 10/325 oral tablet 1 tabs, Oral, q6hr, as needed for pain, rx must last 30 days, # 120 tabs, 0 Refill(s) Start Date: 04/11/16 Status: OrderedReglan 10 mg oral tablet 10 mg 1 tabs, Oral, q6hr, Take 30 minutes before bowel prep and every 6 hours a needed after., # 10 tabs, 0 Refill(s), Pharmacy: [facility] #[id number], 1 tabs Oral q6hr,Instr:Take 30 minutes before bowel prep and every 6 hours a needed after. Start Date: 04/15/16 Stop Date: 05/02/16 Status: OrderedRemicade 100 mg intravenous injection See [...] 90 tabs, 0 Refill (s) Start Date: 04/12/16 Status: OrderedWellbutrin XL 300 mg/24 hours oral tablet, extended release See Instructions, 1.5 tabs oral daily, increased by PV but pt wants Dr. Huerta to refill., # 45 tabs, 11 Refill(s), Pharmacy: [facility] #[id number], 1 tabs Oral Daily Start Date: 09/04/15 Status: Ordered Results No data available for this section Immunizations Vaccine Date Refusal Reason pneumococcal 13-valent conjugate vaccine 04/23/15 tetanus-diphth toxoids (Td) adult/adol 01/13/95 Procedures Procedure Date Related Diagnosis Body Site Resection Colon1 06/02/15 Colonoscopy 05/28/15 Hip replacement -RIGHT per Dr Bautista 2013 [...] Patient Education Author: Reji Huerta MD Date: Internal Medicine Crohn Disease Crohn disease is a long-lasting (chronic) disease that affects your gastrointestinal (GI) tract. It often causes irritation and swelling ( inflammation) in your small intestine and the beginning of your large intestine. However, it can affect any part of your GI tract. Crohn disease is part of a group of illnesses that are known as inflammatory bowel disease (IBD). Crohn disease may start slowly and get worse over time. Symptoms may come and go. They may also disappear for months or even years at a time (remission). CAUSES The exact cause of Crohn disease is not known. It may be a response that causes your body's defense system (immune system) to mistakenly attack healthy cells and tissues (autoimmune response). Your genes and your environment may also play a role. RISK FACTORS You may be at greater risk for Crohn disease if you: Have other family members with Crohn disease or another IBD. Use any tobacco products, including cigarettes, chewing tobacco, or electronic cigarettes. Are in your 20s. Have Eastern ancestry. SIGNS AND SYMPTOMS The main signs and symptoms of Crohn disease involve your GI tract. These include: Diarrhea. Rectal bleeding. An urgent need to move your bowels. The feeling that you are not finished having a bowel movement. Abdominal pain or cramping. Constipation. General signs and symptoms of Crohn disease may also include: Unexplained weight loss. Fatigue. Fever. Nausea. Loss of appetite. Joint pain Changes in vision. Red bumps on your skin. DIAGNOSIS Your health care provider may suspect Crohn disease based on your symptoms and your medical history. Your health care provider will do a physical exam. You may need to see a health care provider who spe cializes in diseases of the digestive tract (solvent plant operator). You may also have tests to help your health care providers make a diagnosis. These may include: Blood tests. Stool sample tests. Imaging tests, such as X-rays and CT scans. Tests to examine the inside of your intestines using a long, flexible tube that has a light and a camera on the end (endoscopy or colonoscopy). A procedure to take tissue samples from inside your bowel (biopsy) to be examined under a microscope. TREATMENT There is no cure for Crohn disease. Treatment will focus on managing your symptoms. Crohn disease affects each person differently. Your treatment may include: Resting your bowels. Drinking only clear liquids or getting nutrition through an IV for a period of time gives your bowels a chance to heal because they are not passing stools. Medicines. These may be used alone or in combination (combination therapy). These may include antibiotic medicines. You may be given medicines that help to: Reduce inflammation. Control your immune system activity. Fight infections. Relieve cramps and prevent diarrhea. Control your pain. Surgery. You may need surgery if: Medicines and other treatments are no longer working. You develop complications from severe Crohn disease. A section of your intestine becomes so damaged that it needs to be removed. HOME CARE INSTRUCTIONS Take medicines only as directed by your health care provider. If you were prescribed an antibiotic medicine, finish it all even if you start to feel better. Keep all follow-up visits as directed by your health care provider. This is important. Talk with your health care provider about changing your diet. This may help your symptoms. Your health care provide may recommend changes, such as: Drinking more fluids. Avoiding milk and other foods that contain lactose. Eating a low-fat diet. Avoiding high-fiber foods, such as popcorn and nuts. Avoiding carbonated beverages, such as soda. Eating smaller meals more often rather than eating large meals. Keeping a food diary to identify foods that make your symptoms better or worse. Do not use any tobacco products, including cigarettes, chewing tobacco, or electronic cigarettes. If you need help quitting, ask your health care provider. Limit alcohol intake to no more than 1 drink per day for non women and 2 drinks per day for men. One drink equals 12 ounces of beer, 5 ounces of wine, or 1 ounces of hard liquor. Exercise daily or as directed by your health care provider. SEEK MEDICAL CARE IF: You have diarrhea, abdominal cramps, and other gastrointestinal problems that are present almost all of the time. Your symptoms do not improve with treatment. You continue to lose weight. You develop a rash or sores on your skin. You develop eye problems. You have a fever. Your symptoms get worse. You develop new symptoms. SEEK IMMEDIATE MEDICAL CARE IF: You have bloody diarrhea. You develop severe abdominal pain. You cannot pass stools. This information is not intended to replace advice given to you by your health care provider. Make sure you discuss any questions you have with your health care provider. Document Released: 03/08/2006 Document Revised: 06/19/2015 Document Reviewed: 01/14/2015 [employer] Patient Education 2016 [employer] No follow up information was provided. Extracted from: Title: Office Visit Note Author: Reji Huerta MD Date: 04/21/16 Assessment/Plan 1.Crohn's disease, Continue with the current medications and follow ups with Dr. Gonzalez Crohn's disease of both small and large intestine with other complication Ordered: Office Visit Level 3 Est 88309 2.Depression Continue with medications and follow up with P.Jerald. Ordered: Office Visit Level 3 Est 85011
--- OUTSIDE RECORDS SUMMARY | 2017-04-03 19:16 | External Medical Summary | Referral Summary ---
:1980 Author Organization [facility] Address [address] [place] [address] Care Team Providers Name Role Phone Huerta Reji Garcia Primary Care Physician Encounter VC Date(s): 06/15/16 - 06/15/16 [facility] [address] [place] [address]- [place] Discharge Diagnosis: High risk medication use Discharge Diagnosis: Crohn's disease Discharge Disposition: 01-Home or Self Care Attending Physician: Barby Gonzalez III, MD Admitting Physician: Barby Gonzalez III, MD Vital Signs Most recent to oldest [Reference Range]: 1 Temperature Oral [35.8-37.3 degC] 36.6 degC (06/15/16 8:27 AM) Peripheral Pulse Rate [60-100 bpm] 68 bpm (06/15/16 8:27 AM) Respiratory Rate [14-20 br/min] 18 br/min (06/15/16 8:27 AM) Blood Pressure [90-140/60-90 mmHg] 124/67 mmHg (06/15/16 8:27 AM) SpO2 98 % (06/15/16 8:27 AM) Problem List Condition Effective Dates Status [...] user(Confirmed) Active patient Ulcers(Confirmed) Active Chicken pox(Confirmed) 1987 Active 1Problem added automatically by system based on initiation of At Risk for Infection in Nutrition Planof [id number] added automatically by system based on initiation of Impaired Skin Integrity Plan of [id number] added automatically by system based on initiation of Knowledge Deficit Plan of Care Allergies, Adverse Reactions, Alerts Substance Reaction Severity Status Demerol HCl Hives Active meperidine Hives Active Medications Anusol-HC 2.5% topical cream 1 tamie, Topical, TID, # 30 g, 2 Refill(s), Pharmacy: [facility] #[id number] Start Date: 05/20/16 Status: OrderedazaTHIOprine 50 mg oral tablet See Instructions, TAKE TWO TABLETS BY MOUTH DAILY, # 60 tabs, eRx: [facility] #[id number], TAKE TWO TABLETS BY MOUTH DAILY Start Date: 06/14/16 Status: Orderedbudesonide 3 mg oral capsule, extended release 9 mg 3 caps, Oral, Daily, # 90 caps, 11 Refill(s), Pharmacy: [facility] # [id number], 3 caps Oral Daily Start Date: 09/04/15 Status: OrderedCeleXA 20 mg oral tablet 20 mg 1 tabs, Oral, Daily, 2 tabs oral daily, increased by PV but he wants Dr. Huerta to refill., #30 tabs, 1 Refill(s), Pharmacy: [facility] #[id number], 1 tabs Oral Daily,Instr:DC order for Vibryd [...] q [address] gonzalez on 10/07/16 Premed: Solu-cortef 100mg IV push. Diagnosis: K50.80, [...] mg 1 tabs, Oral, TID, NJoaquin Colmenares's RX must last 30 days, # 90 tabs, 0 Refill (s) Start Date: 06/10/16 Status: OrderedVistaril 25 mg oral capsule 25 mg 1 caps, Oral, TID, # 90 caps, 1 Refill(s), Pharmacy: [facility] # [id number], 1 caps Oral TID Start Date: 05/25/16 Status: OrderedWellbutrin XL 300 mg/24 hours oral tablet, extended release See Instructions, 1.5 tabs oral daily, increased by PV but pt wants Dr. Huerta to refill., # 45 tabs, 11 Refill(s), Pharmacy: [facility] #[id number], 1 tabs Oral Daily Start Date: 09/04/15 [...]
--- OUTSIDE RECORDS SUMMARY | 2017-04-03 19:16 | External Medical Summary | Referral Summary ---
:1980 Author Organization [facility] Address [address] [place] [address] Care Team Providers Name Role Phone Bradley Reji Garcia Primary Care Physician Encounter VC Date(s): 04/22/15 - 04/22/15 [facility] [address] [place] [address]- [place] Discharge Diagnosis: Crohn's disease Discharge Diagnosis: High risk medication use Discharge Diagnosis: Need for pneumococcal vaccination Discharge Disposition: 01-Home or Self Care Attending Physician: Barby Murray III, MD Admitting Physician: Barby Murray III, MD Vital Signs Most recent to oldest [Reference Range]: 1 Apical Heart Rate [60-100 bpm] 91 bpm (04/22/15 9:46 AM) Blood Pressure [90-140/60-90 mmHg] 126/78 mmHg (04/22/15 9:46 AM) Problem List Condition Effective Dates Status Health Status Informant Acne(Confirmed) 1994 Active Acute low back pain(Confirmed) Active Depression(Confirmed) Active Allergic rhinitis/Hay Fever(Confirmed) 2003 Active Amblyopia/Lazy eye(Confirmed) 1993 Active Asthma(Confirmed) 1992 Active 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 [...] FILLED BY DOC FOR DR GUEVARA, # 60 tabs, 0 Refill(s) Start Date: 04/08/15 Status: OrderedtraZODone 50 mg oral tablet 50 mg 1 tabs, Oral, Bedtime (once a day), # 30 tabs, 0 Refill(s), Pharmacy: [facility] #[id number], 1 tabs Oral Bedtime (once a day) Start Date: 12/23/14 Status: OrderedViibryd 20 mg oral tablet mg tabs, Oral, Daily, 0 Refill(s) Start Date: 04/06/15 Status: OrderedWellbutrin XL 150 mg/24 hours oral tablet, extended release See Instructions, 3 tabs Oral q24hr, # 60 tabs, 2 Refill(s) Start Date: 06/25/14 Status: Ordered Results Hematology Most recent to oldest [Reference Range]: 1 WBC [4.8-10.8 10*3/uL] 12.8 10*3/uL *HI* (04/22/15 10:48 AM) RBC [4.60-6.20] 4.25 *LOW* (04/22/15 10:48 AM) Hgb [14.0-18.0 gm/dL] 14.1 gm/dL (04/22/15 10:48 AM) Hct [42.0-52.0 %] 40.9 % *LOW* (04/22/15 10:48 AM) MCV [82.0-99.0 fL] 96.2 fL (04/22/15 10:48 AM) MCH [27.0-32.0 pg] 33.2 pg *HI* (04/22/15 10:48 AM) MCHC [32.0-36.0 gm/dL] 34.5 gm/dL (04/22/15 10:48 AM) RDW [11.5-14.5 %] 14.4 % (04/22/15 10:48 AM) Platelet [150-400 10*3/uL] 330 10*3/uL (04/22/15 10:48 AM) MPV [8.8-14.8 fL] 9.4 fL (04/22/15 10:48 AM) Immature Granulocytes [0.0-1.0 %] 0.9 % (04/22/15 10:48 AM) Neutrophils [51-75 %] 81 % *HI* (04/22/15 10:48 AM) Lymphocytes [20-46 %] 13 % *LOW* (04/22/15 10:48 AM) Monocytes [4-11 %] 4 % (04/22/15 10:48 AM) Eosinophils [0-4 %] 1 % (04/22/15 10:48 AM) Basophils [0-2 %] 0 % (04/22/15 10:48 AM) Neutro Absolute [1.90-7.00 10*3] 10.39 10*3 *HI* (04/22/15 10:48 AM) Lymph Absolute [0.80-3.30 10*3] 1.66 10*3 (04/22/15 10:48 AM) [place]bon Absolute [0.30-1.00 10*3] 0.49 10*3 (04/22/15 10:48 AM) Eos Absolute [0.00-0.50 10*3] 0.16 10*3 (04/22/15 10:48 AM) Baso Absolute [0.00-0.20 10*3] 0.04 10*3 (04/22/15 10:48 AM) Sed Rate [0-15] 14 (04/22/15 10:48 AM) Immunizations Vaccine Date Refusal Reason tetanus-diphth toxoids (Td) adult/adol 01/13/95 Procedures Procedure Date Related Diagnosis Body Site Collection of venous blood by venipuncture 04/22/15 Hip replacement -RIGHT per Dr Bautista 2012 eye surgery 1993 Colectomy, partial; with resection, with colostomy or ileostomy and creation of mucofistula Colonoscopy colostomy reversed left colon resection with colostomy Social History Social History Type Response Smoking Status Current every day smoker; Type: Cigarettes; Tobacco use per day : 1 Pack Assessment and Plan Referrals to Other Providers Referred by: Barby Murray III, MD
--- OUTSIDE RECORDS SUMMARY | 2017-04-03 19:16 | External Medical Summary | Referral Summary ---
:1980 Author Organization [facility] Address [address] [place] [address] Care Team Providers Name Role Phone Huerta Reji Garcia Primary Care Physician Encounter [facility] [id number] Date(s): 06/02/15 - 06/05/15 [facility] [address] [place] [address] Discharge Diagnosis: Crohn's disease Discharge Disposition: 01-Home or Self Care Attending Physician: Cristobal Olivares MD Admitting Physician: Cristobal Olivares MD Vital Signs Most recent to oldest [Reference Range]: 1 Temperature Oral [35.8-37.3 degC] 36.4 degC (06/05/15 8:00 AM) Temperature Skin [36-37 degC] 36.6 degC (06/02/15 10:45 PM) Temperature Temporal Artery [36.3-37.8 degC] 37.3 degC (06/02/15 4:15 PM) Peripheral Pulse Rate [60-100 bpm] 102 bpm *HI* (06/05/15 8:00 AM) Heart Rate Monitored [60-100 bpm] 107 bpm *HI* (06/02/15 11:00 PM) Respiratory Rate [14-20 br/min] 18 br/min (06/05/15 8:00 AM) Blood Pressure [90-140/60-90 mmHg] 134/74 mmHg (06/05/15 8:00 AM) Mean Arterial Pressure, Cuff 100 mmHg (06/02/15 11:00 PM) SpO2 95 % (06/05/15 8:00 AM) Problem List Condition Effective Dates Status [...] At Risk for Infection in Nutrition Planof [id number] added automatically by system based on initiation of Impaired Skin Integrity Plan of [id number] added automatically by system based on initiation of Knowledge Deficit Plan of Care Allergies, Adverse Reactions, Alerts Substance Reaction Severity Status Demerol HCl Hives Active meperidine Hives Active Medications amLODIPine 20 mg, Oral, Daily, 0 Refill(s) Start Date: 04/06/15 Status: OrderedazaTHIOprine 50 mg oral tablet 100 mg 2 tabs, Oral, Daily, 2 tabs daily with food, # 60 tabs, 3 Refill(s), Pharmacy: [facility] #[id number], 2 tabs Oral Daily,Instr:2 tabs daily ; with food Start Date: 05/06/15 Status: OrderedBlood pressure med Blood pressure med, Thinks it is lisinopril 5-10mg. Prescribed by Dr. Montiel, 0 Refill(s) Start Date: 05/05/15 Status: Orderedbudesonide 3 mg oral capsule, extended release 9 mg 3 caps, Oral, Daily, # 90 caps, 11 Refill(s), Pharmacy: [facility] # [id number], 3 caps Oral Daily Start Date: 05/14/15 [...] day), # 30 tabs, 0 Refill(s), Pharmacy: [facility] #[id number], 1 tabs Oral Bedtime (once a day) Start Date: 12/23/14 Status: OrderedViibryd 20 mg oral tablet mg tabs, Oral, Daily, 0 Refill(s) Start Date: 04/06/15 Status: OrderedWellbutrin XL 150 mg/24 hours oral tablet, extended release See Instructions, 3 tabs Oral q24hr, # 60 tabs, 2 Refill(s) Start Date: 06/25/14 Status: Ordered Results Hematology Most recent to oldest [Reference Range]: 1 WBC [4.8-10.8 10*3/uL] 10.0 10*3/uL (06/05/15 5:20 AM) RBC [4.60-6.20] 3.15 *LOW* (06/05/15 5:20 AM) Hgb [14.0-18.0 gm/dL] 10.2 gm/dL *LOW* (06/05/15 5:20 AM) Hct [42.0-52.0 %] 30.0 % *LOW* (06/05/15 5:20 AM) MCV [82.0-99.0 fL] 95.2 fL (06/05/15 5:20 AM) MCH [27.0-32.0 pg] 32.4 pg *HI* (06/05/15 5:20 AM) MCHC [32.0-36.0 gm/dL] 34.0 gm/dL (06/05/15 5:20 AM) RDW [11.5-14.5 %] 13.6 % (06/05/15 5:20 AM) Platelet [150-400 10*3/uL] 236 10*3/uL (06/05/15 5:20 AM) MPV [9.4-12.3 fL] 9.6 fL (06/05/15 5:20 AM) Chemistry Most recent to oldest [Reference Range]: 1 Sodium Lvl [136-144 mEq/L] 136 mEq/L (06/05/15 5:20 AM) Potassium Lvl [3.6-5.1 mEq/L] 3.3 mEq/L *LOW* (06/05/15 5:20 AM) Chloride [99-109 mEq/L] 101 mEq/L (06/05/15 5:20 AM) CO2 [22-32 mEq/L] 25 mEq/L (06/05/15 5:20 AM) AGAP [3-20] 10 (06/05/15 5:20 AM) BUN [4-20 mg/dL] 5 mg/dL (06/05/15 5:20 AM) Glucose Lvl [70-100 mg/dL] 106 mg/dL *HI* (06/05/15 5:20 AM) Creatinine Lvl [0.64-1.27 mg/dL] 0.96 mg/dL (06/05/15 5:20 AM) eGFR [>60] >60 1 (06/05/15:20 AM) Calcium Lvl [8.6-10.0 mg/dL] 8.4 mg/dL *LOW* (06/05/15 5:20 AM) Albumin Lvl [3.5-4.8 gm/dL] 3.0 gm/dL *LOW* (06/05/15 5:20 AM) Magnesium Lvl [1.8-2.5 mg/dL] 1.6 mg/dL *LOW* (06/03/15 6:30 AM) Phosphorus [2.4-4.7 mg/dL] 2.6 mg/dL 2 (06/05/15 5:20 AM) Blood Glucose, Capillary [70-100 mg/dL] 97 mg/dL (06/02/15 4:07 PM) 1Result Comment: Multiply eGFR results by 1.21 for race.2Result Comment: High dosages of liposomal Amphotericin B (AmBisome) therapy or other drug preparations that use a liposomal envelope to facilitate drug delivery may cause falsely elevated results for phosphorus. Immunizations Vaccine Date Refusal Reason pneumococcal 13-valent [...]
--- OUTSIDE RECORDS SUMMARY | 2017-04-03 19:16 | External Medical Summary | Referral Summary ---
:1980 Author Organization [facility] Address [address] [place] [address] Care Team Providers Name Role Phone Reji Huerta Primary Care Physician Encounter [facility] [id number] Date(s): 09/17/15 - 09/17/15 [facility] [address] [place] [address]- [place] Discharge Diagnosis: High risk medication use Discharge Diagnosis: Tobacco user... Discharge Diagnosis: Crohn's ileocolitis Discharge Diagnosis: Adjustment disorder with depressed mood Discharge Disposition: 01-Home or Self Care Attending Physician: Candida Luke Admitting Physician: Candida Luke Vital Signs Most recent to oldest [Reference Range]: 1 Peripheral Pulse Rate [60-100 bpm] 69 bpm (09/17/15 2:57 PM) Blood Pressure [90-140/60-90 mmHg] 142/75 mmHg *HI* (09/17/15 2:57 PM) Problem List Condition Effective Dates Status [...] At Risk for Infection in Nutrition Planof [id number] added automatically by system based on initiation of Impaired Skin Integrity Plan of [id number] added automatically by system based on initiation of Knowledge Deficit Plan of Care Allergies, Adverse Reactions, Alerts Substance Reaction Severity Status Demerol HCl Hives Active meperidine Hives Active Medications amLODIPine 20 mg, Oral, Daily, 0 Refill(s) Start Date: 04/06/15 Status: OrderedazaTHIOprine 50 mg oral tablet 100 mg 2 tabs, Oral, Daily, 2 tabs daily with food, # 60 tabs, 6 Refill(s), Pharmacy: [facility] #[id number], 2 tabs Oral Daily,Instr:2 tabs daily ; with food Start Date: 09/04/15 Status: OrderedBlood pressure med Blood pressure med, Thinks it is lisinopril 5-10mg. Prescribed by Dr. Montiel, 0 Refill(s) Start Date: 05/05/15 Status: Orderedbudesonide 3 mg oral capsule, extended release 9 mg 3 caps, Oral, Daily, # 90 caps, 11 Refill(s), Pharmacy: [facility] # [id number], 3 caps Oral Daily Start Date: 09/04/15 Status: OrderedPentasa 500 mg oral capsule, extended release See Instructions, 2 caps Oral BID, # 96 caps, 0 Refill(s), samples given to patient (Rx) Start Date: 04/22/15 Status: OrderedPercocet 10/325 oral tablet 1 tabs, Oral, q6hr, as needed for pain, # 120 tabs, 0 Refill(s) Start Date: 09/08/15 Status: OrderedpredniSONE 10 mg oral tablet 10 mg 1 tabs, Oral, Daily, 3 a day and call once he starts the remicade and will instruct on taper, # 30 tabs, 1 Refill(s), Pharmacy: [facility] # [id number], 1 tabs Oral Daily,Instr:3 a day and [...] # 90 tabs, 0 Refill(s) Start Date: 09/08/15 Status: OrderedtraZODone 50 mg oral tablet 50 mg 1 tabs, Oral, Bedtime (once a day), # 30 tabs, 0 Refill(s), Pharmacy: [facility] #[id number], 1 tabs Oral Bedtime (once a day) Start Date: 12/23/14 Status: OrderedWellbutrin XL 300 mg/24 hours oral tablet, extended release 300 mg 1 tabs, Oral, Daily, # 30 tabs, 11 Refill(s), Pharmacy: [facility] #[id number], 1 tabs OralDaily Start Date: 09/04/15 Status: [...]
--- OUTSIDE RECORDS SUMMARY | 2017-04-03 19:16 | External Medical Summary | Referral Summary ---
:1980 Author Organization [facility] Address [address] [place] [address] [place] [address] Care Team Providers Name Role Phone Reji Huerta Primary Care Physician Encounter [facility] Date(s): 04/08/15 - 04/08/15 [facility] [address] [place] [phone]- Discharge Diagnosis: Depression Discharge Diagnosis: Crohn's disease [...] # 60 tabs, 3 Refill(s), Pharmacy : [facility] #[id number], 2 tabs Oral Daily,Instr:2 tabs daily ; with food Start Date: 05/23/14 Status: Orderedbudesonide 3 mg oral capsule, extended release 6 mg 2 caps, Oral, Daily, # 90 unknown unit, 2 Refill(s), eRx: [facility] #[id number], TAKE 3 CAPSULES BY MOUTH EVERY MORNING. Start Date: 03/18/15 Status: OrderedFlagyl 500 mg oral tablet 500 mg 1 tabs, Oral, TID, # 2 tabs, 0 Refill(s) Start Date: 04/06/15 Status: OrderedPercocet 10/325 oral tablet 1 tabs, Oral, q6hr, as needed for pain, # 60 tabs, 0 Refill(s) Start Date: 04/08/15 Stop Date: 04/21/15 Status: OrderedpredniSONE 20 mg oral tablet 20 [...] day), # 30 tabs, 0 Refill(s), Pharmacy: [facility] #[id number], 1 tabs Oral Bedtime (once a day) [...] 07/06/2005 Document Revised: 08/20/2012 Document Reviewed: 10/01/2010 ExitCare Patient Information 2015 [employer]. This information is not intended to replace [...] medications. Ordered: Office Visit Level 4 Est 52760 Crohn's disease, Crohn's disease of both small and large intestine with other complication Continue with the present program of treatment and follow up with the GI doc. Ordered: Office Visit Level 4 Est 73139 Orders: budesonide, 6 mg 2 caps, Oral, Daily, # 90 unknown unit, 2 Refill(s) , eRx: [facility] #[id number], TAKE 3 CAPSULES BY MOUTH EVERY MORNING. buPROPion, See Instructions, 3 tabs Oral q24hr, # 60 tabs, 2 Refill(s) carisoprodol, 350 mg 1 tabs, Oral, TID, N[facility] FILLED BY DOC FOR DR HUERTA, # 60 tabs, 0 Refill(s) oxyCODONE-acetaminophen, 1 tabs, Oral, q6hr, as needed for pain, # 60 tabs, 0 Refill(s)
--- OUTSIDE RECORDS SUMMARY | 2017-04-03 19:16 | External Medical Summary | Referral Summary ---
:1980 Author Organization [facility] Address [address] [place] [address] [place] [address] Care Team Providers Name Role Phone Reji Huerta Primary Care Physician Encounter [facility] Date(s): 12/23/14 - 12/23/14 [facility] [address] [place] [address] Discharge Disposition: 01-Home or Self Care Attending Physician: Reji Huerta MD Admitting Physician: Reji Huerta MD Vital Signs Most recent to oldest [Reference Range]: 1 Blood Pressure [90-140/60-90 mmHg] 116/68 mmHg (12/23/14 1:14 PM) Problem List Condition Effective Dates Status [...] At Risk for Infection in Nutrition Planof [id number] added automatically by system based on initiation of Impaired Skin Integrity Plan of [id number] added automatically by system based on initiation of Knowledge Deficit Plan of Care Allergies, Adverse Reactions, Alerts Substance Reaction Severity Status Demerol HCl Hives Active meperidine Hives Active Medications amLODIPine 20 mg, Oral, Daily, 0 Refill(s) Start Date: 04/06/15 Status: OrderedazaTHIOprine 50 mg oral tablet 100 mg 2 tabs, Oral, Daily, 2 tabs daily with food, # 60 tabs, 3 Refill(s), Pharmacy: [facility] #[id number], 2 tabs Oral Daily,Instr:2 tabs daily ; with food Start Date: 05/06/15 Status: OrderedBlood pressure med Blood pressure med, Thinks it is lisinopril 5-10mg. Prescribed by Dr. Montiel, 0 Refill(s) Start Date: 05/05/15 Status: Orderedbudesonide 3 mg oral capsule, extended release 9 mg 3 caps, Oral, Daily, # 90 caps, 11 Refill(s), Pharmacy: [facility] # [id number], 3 caps Oral Daily Start Date: 05/14/15 [...] 0 Refill(s), Pharmacy: [facility] #[id number], 1 tabs Oral Bedtime (once a day) [...] Author: Reji Huerta MD Date: Family Medicine Crohn's Disease Crohn's disease is a long-term (chronic ) soreness and redness (inflammation ) of the intestines (bowel ). It can affect any portion of the digestive tract, from the mouth to the anus. It can also cause problems outside the digestive tract. Crohn's disease is closely related to a disease called ulcerative colitis (together, these two diseases are called inflammatory bowel disease). CAUSES The cause of Crohn's disease is not known. One theory is that, in an easily affected person, the immune system is triggered to attack the body's own digestive tissue. Crohn's disease runs in families. I t seems to be more common in certain geographic areas and amongst certain races. There are no clear-cut dietary causes. SYMPTOMS Crohn's disease can cause many different symptoms since it can affect many different parts of the body. Symptoms include: Fatigue. Weight loss. Chronic diarrhea, sometime bloody. Abdominal pain and cramps. Fever. Ulcers or canker sores in the mouth or rectum. Anemia (low red blood cells). Arthritis, skin problems, and eye problems may occur. Complications of Crohn's disease can include: Series of holes (perforation ) of the bowel. Portions of the intestines sticking to each other (adhesions ). Obstruction of the bowel. Fistula formation, typically in the rectal area but also in other areas. A fistula is an opening between the bowels and the outside, or between the bowels and another organ. A painful crack in the mucous membrane of the anus (rectal fissure ). DIAGNOSIS Your caregiver may suspect Crohn's disease based on your symptoms and an exam. Blood tests may confirm that there is a problem. You may be asked to submit a stool specimen for examination. X-rays and CT scans may be necessary. Ultimately, the diagnosis is usually made after a procedure that uses a flexible tube that is inserted via your mouth or your anus. This is done under sedation and is called eit her an upper endoscopy or colonoscopy. With these tests, the specialist can take tiny tissue samples and remove them from the inside of the bowel (biopsy ) . Examination of this biopsy tissue under a seamus roscope can reveal Crohn's disease as the cause of your symptoms. Due to the many different forms that Crohn's disease can take, symptoms may be present for several years before a diagnosis is made. TREATMENT Medications are often used to decrease inflammation and control the immune system. These include medicines related to aspirin, steroid medications, and newer and stronger medications to slow down the immune system. Some medications may be used as suppositories or enemas. A number of other medications are used or have been studied. Your caregiver will make specific recommendations. HOME CARE INSTRUCTIONS Symptoms such as diarrhea can be controlled with medications. Avoid foods that have a laxative effect such as fresh fruit, vegetables and dairy products. During flare ups, you can rest your bowel b y refraining from solid foods. Drink clear liquids frequently during the day ( electrolyte or re-hydrating fluids are best. Your caregiver can help you with suggestions). Drink often to prevent loss of b dilan fluids (dehydration ). When diarrhea has cleared, eat small meals and more frequently. Avoid food additives and stimulants such as caffeine (coffee, tea, or chocolate). Enzyme supplements may help i f you develop intolerance to a sugar in dairy products (lactose ). Ask your caregiver or dietitian about specific dietary instructions. Try to maintain a positive attitude. Learn relaxation techniques such as self hypnosis, mental imaging, and muscle relaxation. If possible, [...] get worse. Document Released: 03/08/2006 Document Revised: 09/23/2013 Document Reviewed: 02/04/2008 [employer] Patient Information [employer]. Colitis Colitis is inflammation of the colon. Colitis can be a short-term or long- standing (chronic ) illness. Crohn's disease and ulcerative colitis are 2 types of colitis which are chronic. They usually require lifelong treatment. CAUSES There are many different causes of colitis, including: Viruses. Germs (bacteria ). Medicine reactions. SYMPTOMS Diarrhea. Intestinal bleeding. Pain. Fever. Throwing up (vomiting ). Tiredness (fatigue ). Weight loss. Bowel blockage. DIAGNOSIS The diagnosis of colitis is based on examination and stool or blood tests. X- rays, CT scan, and colonoscopy may also be needed. TREATMENT Treatment may include: Fluids given through the vein (intravenously ). Bowel rest (nothing to eat or drink for a period of time). Medicine for pain and diarrhea. Medicines (antibiotics ) that kill germs. Cortisone medicines. Surgery. HOME [...] have repeated vomiting. You develop severe belly (abdominal ) pain or are passing bloody or tarry stools. MAKE SURE YOU: Understand these instructions. Will watch your condition. Will get help right away if you are not doing well or get worse. Document Released: 07/06/2005 Document Revised: 08/20/2012 Document Reviewed: 10/01/2010 [employer] Patient Information 2014 [employer] [facility]. No follow up information was provided. Extracted from: Title: Office Visit Note Author: Reji Huerta MD Date: 12/23/14 Assessment/Plan Crohn's disease Will increase the pain medication to Percocet 10mg. He is to keep his apt. with Dr. Murray. Ordered: Office Visit Level 4 Est 32291 Depression Ordered: Office Visit Level 4 Est 29104 Orders: buPROPion, See Instructions, 2 tabs Oral q24hr, # 60 tabs, 2 Refill(s ) oxyCODONE-acetaminophen, 1 tabs, Oral, q6hr, as needed for pain, # 50 tabs, 0 Refill(s)
--- OUTSIDE RECORDS SUMMARY | 2017-04-03 19:17 | External Medical Summary | Referral Summary ---
:1980 Author Organization [facility] [address] [place] [address] Care Team Providers Name Role Phone Bradley Reij Garcia Primary Care Physician Encounter VC Date(s): 08/26/15 - 08/26/15 [facility] [address] [place] [address] Discharge Diagnosis: Acute colitis Discharge Diagnosis: Crohn's disease Discharge Diagnosis: Abdominal pain Discharge Diagnosis: Fever Discharge Diagnosis: Acute Crohn's disease Discharge Disposition: 01-Home or Self Care Attending Physician: Jackelin Crowley PA-C Admitting Physician: Jackelin Crowley PA-C Vital Signs Most recent to oldest [Reference Range]: 1 Peripheral Pulse Rate [60-100 bpm] 84 bpm (08/26/15 1:23 PM) Respiratory Rate [14-20 br/min] 16 br/min (08/26/15 1:23 PM) Blood Pressure [90-140/60-90 mmHg] 115/64 mmHg (08/26/15 1:23 PM) Problem List Condition Effective Dates Status [...] At Risk for Infection in Nutrition Planof [id number] added automatically by system based on initiation of Impaired Skin Integrity Plan of [id number] added automatically by system based on initiation of Knowledge Deficit Plan of Care Allergies, Adverse Reactions, Alerts Substance Reaction Severity Status Demerol HCl Hives Active meperidine Hives Active Medications amLODIPine 20 mg, Oral, Daily, 0 Refill(s) Start Date: 04/06/15 Status: OrderedazaTHIOprine 50 mg oral tablet 100 mg 2 tabs, Oral, Daily, 2 tabs daily with food, # 60 tabs, 3 Refill(s), Pharmacy: [facility] #[id number], 2 tabs Oral Daily,Instr:2 tabs daily ; with food Start Date: 05/06/15 Status: OrderedBlood pressure med Blood pressure med, Thinks it is lisinopril 5-10mg. Prescribed by Dr. Montiel, 0 Refill(s) Start Date: 05/05/15 Status: Orderedbudesonide 3 mg oral capsule, extended release 9 mg 3 caps, Oral, Daily, # 90 caps, 11 Refill(s), Pharmacy: [facility] # [id number], 3 caps Oral Daily Start Date: 05/14/15 [...] # 30 tabs, 0 Refill(s), Pharmacy: [facility] #[id number], 1 tabs Oral Bedtime (once a day) Start Date: 12/23/14 Status: OrderedViibryd 20 mg oral tablet mg tabs, Oral, Daily, 0 Refill(s) Start Date: 04/06/15 Status: OrderedWellbutrin XL 150 mg/24 hours oral tablet, extended release See Instructions, 3 tabs Oral q24hr, # 60 tabs, 2 Refill(s) Start Date: 06/25/14 Status: Ordered Results Hematology Most recent to oldest [Reference Range]: 1 WBC [5.0-10.0 10*3/uL] 11.0 10*3/uL *HI* (08/26/15 2:21 PM) RBC [3.70-5.20] 4.44 (08/26/15 2:21 PM) Hgb [12.0-16.0 gm/dL] 14.2 gm/dL (08/26/15 2:21 PM) Hct [40.0-54.0 %] 42.6 % (08/26/15 2:21 PM) MCV [80.0-96.0 fL] 95.9 fL (08/26/15 2:21 PM) MCH [26.0-34.0 pg] 32.0 pg (08/26/15 2:21 PM) MCHC [32.0-36.0 gm/dL] 33.3 gm/dL (08/26/15 2:21 PM) RDW [0.0-14.5 %] 12.1 % (08/26/15 2:21 PM) Platelet [150-400 10*3/uL] 407 10*3/uL *HI* (08/26/15 2:21 PM) MPV [8.8-14.8 fL] 8.7 fL *LOW* (08/26/15 2:21 PM) Neutrophils [50-70 %] 62 % (08/26/15 2:21 PM) Lymphocytes [20-40 %] 23 % (08/26/15 2:21 PM) Monocytes [4-8 %] 8 % (08/26/15 2:21 PM) Eosinophils [0-6 %] 6 % (08/26/15 2:21 PM) Basophils [0-2 %] 1 % (08/26/15 2:21 PM) Neutro Absolute [2.50-7.00 10*3] 6.78 10*3 (08/26/15 2:21 PM) Lymph Absolute [1.00-4.00 10*3] 2.56 10*3 (08/26/15 2:21 PM) [place] Absolute [0.20-0.80 10*3] 0.86 10*3 *HI* (08/26/15 2:21 PM) Eos Absolute [0.00-0.60 10*3] 0.64 10*3 *HI* (08/26/15 2:21 PM) Baso Absolute [0.00-0.30] 0.11 (08/26/15 2:21 PM) Chemistry Most recent to oldest [Reference Range]: 1 Sodium Venous [136-145 mmol/L] 141 mmol/L (08/26/15 2:21 PM) Potassium Venous [3.5-5.1 mmol/L] 4.3 mmol/L 1 (08/26/15 2:21 PM) Calcium Ionized Venous [1.10-1.30 mmol/L] 1.24 mmol/L (08/26/15 2:21 PM) Total CO2 Venous [24-29 mmol/L] 25 mmol/L (08/26/15 2:21 PM) Glucose Venous [70-100 mg/dL] 83 mg/dL (08/26/15 2:21 PM) BUN Venous [8-26] 9 (08/26/15 2:21 PM) Creatinine Venous [0.7-1.3 mg/dL] 0.9 mg/dL (08/26/15 2:21 PM) Venous CL [98-109 mmol/L] 99 mmol/L (08/26/15 2:21 PM) 1Result Comment: This test was performed on a whole blood specimen. The presence or absence of hemolysis cannot be assessed. Hemolysis can falsely elevate potassium levels. Normals are for venous specimens only.Urinalysis Most recent to oldest [Reference Range]: 1 UA Color Dk Yellow (08/26/15 2:20 PM) UA Appear Clear (08/26/15 2:20 PM) UA pH [5.0-8.0] 5.5 (08/26/15 2:20 PM) UA Leuk Est [Negative] Negative (08/26/15 2:20 PM) UA Nitrite [Negative] Negative (08/26/15 2:20 PM) UA Protein [Negative] Negative (08/26/15 2:20 PM) UA Glucose [Negative] Negative (08/26/15 2:20 PM) UA Ketones [Negative] Negative (08/26/15 2:20 PM) UA Urobilinogen [<=1.0 mg/dL] 0.2 mg/dL (08/26/15 2:20 PM) UA Bili [Negative] Negative (08/26/15 2:20 PM) UA Blood [Negative] Negative (08/26/15 2:20 PM) UA Spec Grav [1.003-1.030] >=1.030 (08/26/15 2:20 PM) Type Clean Catch (08/26/15 2:20 PM) Immunizations Vaccine Date Refusal Reason pneumococcal 13-valent conjugate vaccine 04/23/15 tetanus-diphth toxoids (Td) adult/adol 01/13/95 Procedures Procedure Date Related Diagnosis Body Site Collection of venous blood by venipuncture 08/26/15 Resection Colon1 06/02/15 Hip replacement -RIGHT per [...] Extracted from: Title: Ambulatory Patient Education Author: Jackelin Crowley PA-C Date: [facility] Colitis Colitis is inflammation of the colon. [...] are not doing well or get worse. This information is not intended to replace advice given to you by your health care provider. Make sure you discuss any questions you have with your health care provider. Document Released: 07/06/2005 Document Revised: 08/20/2012 Document Reviewed: 10/01/2010 [facility] Patient Information 2015 [employer]. Crohn Disease Crohn disease is a long-lasting [...] cializes in diseases of the digestive tract (lens dotter). You may also have tests to help [...] care provider. Document Released: 03/08/2006 Document Revised: 03/17/2015 Document Reviewed: 01/14/2015 [employer] Patient Information 2015 [employer]. No follow up information was provided. Extracted from: Title: Office Visit Note- Acute Author: Jackelin Crowley PA-C Date: colitis Assessment/Plan Abdominal pain, Abdominal pain See below. Ordered: Office Visit Level 5 Est [address] showed diffuse colitis to the remainder of his colon. Worse at the ileocecal anastomosis and rectum. No abscess was seen however. Elevated WBC. I discussed the case with Dr. Hutchison, h ospitalist, at [facility] for admission. She refused admission, however, due to the fact that he has just had surgery in May at [facility] , and we have no GI here in [place]. She request ed deferral to [facility]. I did discuss this with the pt, and he refused admission as his " was mad" at him. I offered him Solu-Medrol in clinic and oral prednisone, but STRONGLY advised admission to [facility]. After some discussion, pt did decide to have his drive him to [facility] ED for subsequent admission. Ordered: Office Visit Level 5 Est 24525 Acute Crohn's disease, Crohn's disease Seeabove. D/w pt that he needs to have regular f/u with Dr. Murray and restart Remicade after this acute flare. Ordered: Office Visit Level 5 Est 11361 Fever, Fever As above. Ordered: Office Visit Level 5 Est 40555
--- OUTSIDE RECORDS SUMMARY | 2017-04-03 19:17 | External Medical Summary | Referral Summary ---
:1980 Author [facility] Address [address] [place] [address] [place] [address] Care Team Providers Name Role Phone Reji Huerta Primary Care Physician Encounter VC Date(s): 04/23/15 - 04/23/15 [facility] [address] [place] [address]- Discharge Disposition: 01-Home or Self Care Attending Physician: Song [place] MD Admitting Physician: Reji Huerta MD Vital Signs No [...] # 60 tabs, 3 Refill(s), Pharmacy : [facility] #[id number], 2 tabs Oral Daily,Instr:2 tabs daily ; with food Start Date: 05/23/14 Status: Orderedbudesonide 3 mg oral capsule, extended release 6 mg 2 caps, Oral, Daily, # 90 unknown unit, 2 Refill(s), eRx: [facility] #[id number], TAKE 3 CAPSULES BY MOUTH EVERY MORNING. [...] day), # 30 tabs, 0 Refill(s), Pharmacy: [facility] #[id number], 1 tabs Oral Bedtime (once a day) [...]
--- OUTSIDE RECORDS SUMMARY | 2017-04-03 19:17 | External Medical Summary | Referral Summary ---
:1980 Author Organization [facility], [facility] Address [address] [place] [address] Care Team Providers Name Role Phone Huerta Reji Radha Primary Care Physician Encounter VC Date(s): 10/27/14 - 10/27/14 [facility] [address] [place] [address]- [place] Discharge Diagnosis: High risk medication use Discharge Diagnosis: Crohn's disease Discharge Disposition: 01-Home or Self Care Attending Physician: Barby Murray III, MD Admitting Physician: Barby Murray III, MD Vital Signs Most recent to oldest [Reference Range]: 1 Peripheral Pulse Rate [60-100 bpm] 65 bpm (10/27/14 11:06 AM) Blood Pressure [90-140/60-90 mmHg] 128/78 mmHg (10/27/14 11:06 AM) Problem List Condition Effective Dates Status Health Status Informant Acne(Confirmed) 1994 Active Acute low back pain(Confirmed) Active Depression(Confirmed) Active Allergic rhinitis/Hay Fever(Confirmed) 2003 Active Amblyopia/Lazy eye(Confirmed) 1993 Active Asthma(Confirmed) 1992 Active 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 #[id number], 2 tabs Oral Daily,Instr:2 tabs daily ; with food Start Date: 05/06/15 Status: OrderedBlood pressure med Blood pressure med, Thinks it is lisinopril 5-10mg. Prescribed by Dr. Montiel, 0 Refill(s) Start Date: 05/05/15 Status: Orderedbudesonide 3 mg oral capsule, extended release 6 mg 2 caps, Oral, Daily, # 90 unknown unit, 2 Refill(s), eRx: [facility] #[id number], TAKE 3 CAPSULES BY MOUTH EVERY MORNING. [...] [facility] #[id number], 1 tabs Oral Bedtime (once a day) [...] Extracted from: Title: Ambulatory Patient Education Author: Barby Murray III, MD Date: Family Medicine Crohn's Disease Crohn's [...] 03/08/2006 Document Revised: 09/23/2013 Document Reviewed: 02/04/2008 [facility] Patient Information 2014 [employer]. No follow up information was provided. Extracted from: Title: Office Visit Note Author: Barby Murray III, MD Date: 10/27/14 Assessment/Plan Crohn's disease Recent flare probably had to do somewhat with the dosing interval of Remicade, and he hasn't been keeping appointments as frequently as he ought to have. Before deciding regarding medications drugs colonoscopy etc. I believe that reassessment of current labs and clinical situation is necessary and I'll see him in 4 weeks. Ordered: Return to Clinic High risk medication use Ordered: Return to Clinic Referrals to Other Providers Referred by: Barby Murray III, MD
--- OUTSIDE RECORDS SUMMARY | 2017-04-03 19:17 | External Medical Summary | Referral Summary ---
:1980 Author Organization [facility] [place] [address] Care Team Providers Name Role Phone Bradley Reji Garcia Primary Care Physician Encounter VC Date(s): 02/18/16 - 02/18/16 [facility] [place] [address] Discharge Diagnosis: Nausea without vomiting Discharge Diagnosis: Watery diarrhea Discharge Diagnosis: Abdominal pain Discharge Diagnosis: Crohn's disease Discharge Diagnosis: Fever Discharge Disposition: 01-Home or Self Care Attending Physician: Jackelin Crowley PA-C Admitting Physician: Jackelin Crowley PA-C Vital Signs Most recent to oldest [Reference Range]: 1 Peripheral Pulse Rate [60-100 bpm] 72 bpm (02/18/16 11:17 AM) Respiratory Rate [14-20 br/min] 18 br/min (02/18/16 11:17 AM) Blood Pressure [90-140/60-90 mmHg] 116/62 mmHg (02/18/16 11:17 AM) Problem List Condition Effective Dates Status [...] At Risk for Infection in Nutrition Planof [id number] added automatically by system based on initiation of Impaired Skin Integrity Plan of [id number] added automatically by system based on initiation of Knowledge Deficit Plan of Care Allergies, Adverse Reactions, Alerts Substance Reaction Severity Status Demerol HCl Hives Active meperidine Hives Active Medications azaTHIOprine 50 mg oral tablet 100 mg 2 tabs, Oral, Daily, 2 tabs daily with food, # 60 tabs, 6 Refill(s), Pharmacy: [facility] #[id number], 2 tabs Oral Daily,Instr:2 tabs daily ; with food Start Date: 09/04/15 Status: OrderedBlood pressure med Blood pressure med, Thinks it is lisinopril 5-10mg. Prescribed by Dr. Montiel, 0 Refill(s) Start Date: 05/05/15 Status: Orderedbudesonide 3 mg oral capsule, extended release 9 mg 3 caps, Oral, Daily, # 90 caps, 11 Refill(s), Pharmacy: [facility] # [id number], 3 caps Oral Daily Start Date: 09/04/15 Status: OrderedCeleXA 20 mg oral tablet 20 mg 1 tabs, Oral, Daily, DC order for Vibryd, # 30 tabs, 1 Refill(s), Pharmacy : [facility] #[id number], 1 tabs Oral Daily,Instr:DC order for Vibryd Start Date: 02/12/16 Status: OrderedPentasa 500 mg oral capsule, extended release See Instructions, 2 caps Oral BID, # 96 caps, 0 Refill(s), samples given to patient (Rx) Start Date: 04/22/15 Status: OrderedPercocet 10/325 oral tablet 1 tabs, Oral, q6hr, as needed for pain, rx must last 30 days, # 120 tabs, 0 Refill(s) Start Date: 02/05/16 Status: OrderedRemicade 100 mg intravenous injection See [...] 90 tabs, 0 Refill (s) Start Date: 02/12/16 Status: OrderedWellbutrin XL 300 mg/24 hours oral tablet, extended release 300 mg 1 tabs, Oral, Daily, # 30 tabs, 11 Refill(s), Pharmacy: [facility] #[id number], 1 tabs OralDaily Start Date: 09/04/15 Status: OrderedZofran ODT 4 mg oral tablet, disintegrating 4 mg 1 tabs, Oral, q8hr, as needed for nausea/vomiting, # 10 tabs, 0 Refill(s), Pharmacy: [facility] #[id number], 1 tabs Oral q8hr,PRN:as needed for nausea/ vomiting Start Date: 02/18/16 Status: Ordered Results Hematology Most recent to oldest [Reference Range]: 1 WBC [4.8-10.8 10*3/uL] 8.0 10*3/uL (02/18/16 11:45 AM) RBC [4.60-6.20] 4.20 *LOW* (02/18/16 11:45 AM) Hgb [14.0-18.0 gm/dL] 14.6 gm/dL (02/18/16 11:45 AM) Hct [42.0-52.0 %] 41.5 % *LOW* (02/18/16 11:45 AM) MCV [82.0-99.0 fL] 98.8 fL (02/18/16 11:45 AM) MCH [27.0-32.0 pg] 34.8 pg *HI* (02/18/16 11:45 AM) MCHC [32.0-36.0 gm/dL] 35.2 gm/dL (02/18/16 11:45 AM) RDW [11.5-14.5 %] 13.3 % (02/18/16 11:45 AM) Platelet [150-400 10*3/uL] 257 10*3/uL (02/18/16 11:45 AM) MPV [8.8-14.8 fL] 9.9 fL (02/18/16 11:45 AM) Immature Granulocytes [0.0-1.0 %] 0.3 % (02/18/16 11:45 AM) Neutrophils [51-75 %] 56 % (02/18/16 11:45 AM) Lymphocytes [20-46 %] 27 % (02/18/16 11:45 AM) Monocytes [4-11 %] 11 % (02/18/16 11:45 AM) Eosinophils [0-4 %] 6 % *HI* (02/18/16 11:45 AM) Basophils [0-2 %] 1 % (02/18/16 11:45 AM) Neutro Absolute [1.90-7.00 10*3] 4.52 10*3 (02/18/16 11:45 AM) Lymph Absolute [0.80-3.30 10*3] 2.12 10*3 (02/18/16 11:45 AM) Rawlins Absolute [0.30-1.00 10*3] 0.84 10*3 (02/18/16 11:45 AM) Eos Absolute [0.00-0.50 10*3] 0.44 10*3 (02/18/16 11:45 AM) Baso Absolute [0.00-0.20 10*3] 0.06 10*3 (02/18/16 11:45 AM) Chemistry Most recent to oldest [Reference Range]: 1 Sodium Lvl [135-144 mEq/L] 138 mEq/L (02/18/16 11:45 AM) Potassium Lvl [3.5-5.2 mEq/L] 4.9 mEq/L (02/18/16 11:45 AM) Chloride [99-111 mEq/L] 103 mEq/L (02/18/16 11:45 AM) CO2 [23-31 mEq/L] 30 mEq/L (02/18/16 11:45 AM) AGAP [3-20] 5 (02/18/16 11:45 AM) BUN [9-21 mg/dL] 17 mg/dL (02/18/16 11:45 AM) Glucose Lvl [70-99 mg/dL] 90 mg/dL (02/18/16 11:45 AM) Creatinine Lvl [0.72-1.25 mg/dL] 0.93 mg/dL (02/18/16 11:45 AM) eGFR [>60 mL/min] >60 mL/min 1 (02/18/16 11:45 AM) Calcium Lvl [8.9-10.5 mg/dL] 9.7 mg/dL (02/18/16 11:45 AM) Albumin Lvl [3.5-5.0 gm/dL] 4.5 gm/dL (02/18/16 11:45 AM) Total Protein [6.1-7.7 gm/dL] 7.3 gm/dL (02/18/16 11:45 AM) Globulin [1.8-4.0 gm/dL] 2.8 gm/dL (02/18/16 11:45 AM) ALT [0-55 U/L] 16 U/L (02/18/16 11:45 AM) AST [5-34 U/L] 20 U/L (02/18/16 11:45 AM) Alk Phos [40-150 U/L] 96 U/L (02/18/16 11:45 AM) Bili Total [0.2-1.2 mg/dL] 0.7 mg/dL (02/18/16 11:45 AM) 1Result Comment: Multiply eGFR results by 1.21 for race.Urinalysis Most recent to oldest [Reference Range]: 1 UA Color DkYellow (02/18/16 11:49 AM) UA Appear Cloudy *ABN* (02/18/16 11:49 AM) UA pH [5.0-8.0] 6.0 (02/18/16 11:49 AM) UA Leuk Est [Negative] Negative (02/18/16 11:49 AM) UA Nitrite [Negative] Negative (02/18/16 11:49 AM) UA Protein [Negative] Negative (02/18/16 11:49 AM) UA Glucose [Negative] Negative (02/18/16 11:49 AM) UA Ketones [Negative] Negative (02/18/16 11:49 AM) UA Urobilinogen [<1.0 mg/dL] 0.2 mg/dL (02/18/16 11:49 AM) UA Bili [Negative] Negative (02/18/16 11:49 AM) UA Blood [Negative] Pos 1+ *ABN* (02/18/16 11:49 AM) UA Spec Grav [1.003-1.030] 1.037 *HI* (02/18/16 11:49 AM) Type Clean Catch (02/18/16 11:49 AM) UA WBC [0-4] 0-2 (02/18/16 11:49 AM) UA RBC [0-4] 5-10 *ABN* (02/18/16 11:49 AM) Epithelial Cells 0-2 (02/18/16 11:49 AM) UA Bacteria Occasional *ABN* (02/18/16 11:49 AM) UA Mucous Present (02/18/16 11:49 AM) Immunizations Vaccine Date Refusal Reason pneumococcal 13-valent conjugate vaccine 04/23/15 tetanus-diphth toxoids (Td) adult/adol 01/13/95 Procedures Procedure Date Related Diagnosis Body Site Collection of venous blood by venipuncture 02/18/16 Resection Colon1 06/02/15 Hip replacement -RIGHT per [...] Patient Education Author: Jackelin Crowley PA-C Date: Emergency Medicine Abdominal Pain, Adult Many [...] any discomfort you are experiencing: Only take nvsh-jwj-smwjggd or prescription medicines as directed by your [...] that is worsened with eating fatty foods. You have a fever. SEEK IMMEDIATE MEDICAL CARE IF: Your pain does not go away within 2 hours. You keep throwing up (vomiting). Your pain is felt only in portions [...] Released: 03/08/2006 Document Revised: 06/19/2015 Document Reviewed: 02/05/2014 [facility] [address] [facility]. Family Medicine Diarrhea Diarrhea is frequent loose and watery bowel movements. It can cause you to feel weak and dehydrated. Dehydration can cause you to become tired and thirsty , have a dry mouth, and have decreased urination that often is dark yellow. Diarrhea is a sign of another problem, most often an infection that will not last long. In most cases, diarrhea typically lasts 2 3 days. However, it can last longer if it is a sign of something more serious. It is important to treat your diarrhea as directed by your caregiver to lessen or prevent future episodes of diarrhea. CAUSES Some common causes include: Gastrointestinal infections caused by viruses, bacteria, or parasites. Food poisoning or food allergies. Certain medicines, such as antibiotics, chemotherapy, and laxatives. Artificial sweeteners and fructose. Digestive disorders. HOME CARE INSTRUCTIONS Ensure adequate fluid intake (hydration): Have 1 cup (8 oz) of fluid for each diarrhea episode. Avoid fluids that contain simple sugars or sports drinks, fruit juices, whole milk products, and so pascal. Your urine should be clear or pale yellow if you are drinking enough fluids. Hydrate with an oral rehydration solution that you can purchase at pharmacies, retail stores, and online. You can prepar e an oral rehydration solution at home by mixing the following ingredients together: tsp table salt. tsp baking soda. tsp salt substitute containing potassium chloride. 1 tablespoons sugar. 1 L (34 oz) of water. Certain foods and beverages may increase the speed at which food moves through the gastrointestinal (GI) tract. These foods and beverages should be avoided and include: Caffeinated and alcoholic beverages. High-fiber foods, such as raw fruits and vegetables, nuts, seeds, and whole grain breads and cereals. Foods and beverages sweetened with sugar alcohols, such as xylitol, sorbitol, and mannitol. Some foods may be well tolerated and may help thicken stool including: Starchy foods, such as rice, toast, pasta, low-sugar cereal, oatmeal, grits, baked potatoes, crackers, and bagels. Bananas. Applesauce. Add probiotic-rich foods to help increase healthy bacteria in the GI tract, such as yogurt and fermented milk products. Wash your hands well after each diarrhea episode. Only take xryu-wjv-wttugrn or prescription medicines as directed by your caregiver. Take a warm bath to relieve any burning or pain from frequent diarrhea episodes. SEEK IMMEDIATE MEDICAL CARE IF: You are unable to keep fluids down. You have persistent vomiting. You have blood in your stool, or your stools are black and tarry. You do not urinate in 68 hours, or there is only a small amount of very dark urine. You have abdominal pain that increases or localizes. You have weakness, dizziness, confusion, or light-headedness. You have a severe headache. Your diarrhea gets worse or does not get better. You have a fever or persistent symptoms for more than 23 days. You have a fever and your symptoms suddenly get worse. MAKE SURE YOU: Understand these instructions. Will watch your condition. Will get help right away if you are not doing well or get worse. This information is not intended to replace advice given to you by your health care provider. Make sure you discuss any questions you have with your health care provider. Document Released: 05/19/2003 Document Revised: 06/19/2015 Document Reviewed: 02/03/2013 [employer] Patient Information 2016 [employer]. Infectious Disease Fever, Adult A fever is a higher than normal body temperature. In an adult, an oral temperature around 98.6 F (37 C) is considered normal. A temperature of 100.4 F (38 C) or higher is generally considered a fever. Mild or moderate fevers generally have no long-term effects and often do not require treatment. Extreme fever (greater than or equal to 106 F or 41.1 C) can cause seizures. The sweating that may occur with repeated or prolonged fever may cause dehydration. Elderly people can develop confusion during a fever. A measured temperature can vary with: Age. Time of day. Method of measurement (mouth, underarm, rectal, or ear). The fever is confirmed by taking a temperature with a thermometer. Temperatures can be taken different ways. Some methods are accurate and some are not. An oral temperature is used most commonly. Electronic thermometers are fast and accurate. An ear temperature will only be accurate if the thermometer is positioned as recommended by the division operations specialist. A rectal temperature is accurate and done for those adults who have a condition where an oral temperature cannot be taken. An underarm (axillary) temperature is not accurate and not recommended. Fever is a symptom, not a disease. CAUSES Infections commonly cause fever. Some noninfectious causes for fever include: Some arthritis conditions. Some thyroid or adrenal gland conditions. Some immune system conditions. Some types of cancer. A medicine reaction. High doses of certain street drugs such as methamphetamine. Dehydration. Exposure to high outside or room temperatures. Occasionally, the source of a fever cannot be determined. This is sometimes called a "fever of unknown origin" (FUO). Some situations may lead to a temporary rise in body temperature that may go away on its own. Examples are: Childbirth. Surgery. Intense exercise. HOME CARE INSTRUCTIONS Take appropriate medicines for fever. Follow dosing instructions carefully. If you use acetaminophen to reduce the fever, be careful to avoid taking other medicines that also contain acetaminophe n. Do not take aspirin for a fever if you are younger than age 19. There is an association with Claudette's syndrome. Claudette's syndrome is a rare but potentially deadly disease. If an infection is present and antibiotics have been prescribed, take them as directed. Finish them even if you start to feel better. Rest as needed. Maintain an adequate fluid intake. To prevent dehydration during an illness with prolonged or recurrent fever, you may need to drink extra fluid. Drink enough fluids to keep your urine clear or pale yellow. Sponging or bathing with room temperature water may help reduce body temperature. Do not use ice water or alcohol sponge baths. Dress comfortably, but do not over-bundle. SEEK MEDICAL CARE IF: You are unable to keep fluids down. You develop vomiting or diarrhea. You are not feeling at least partly better after 3 days. You develop new symptoms or problems. SEEK IMMEDIATE MEDICAL CARE IF: You have shortness of breath or trouble breathing. You develop excessive weakness. You are dizzy or you faint. You are extremely thirsty or you are making little or no urine. You develop new pain that was not there before (such as in the head, neck, chest, back, or abdomen). You have persistent vomiting and diarrhea for more than 1 to 2 days. You develop a stiff neck or your eyes become sensitive to light. You develop a skin rash. You have a fever or persistent symptoms for more than 2 to 3 days. You have a fever and your symptoms suddenly get worse. MAKE SURE YOU: Understand these instructions. Will watch your condition. Will get help right away if you are not doing well or get worse. This information is not intended to replace advice given to you by your health care provider. Make sure you discuss any questions you have with your health care provider. Document Released: 11/22/2001 Document Revised: 06/19/2015 Document Reviewed: 03/29/2012 [employer] Patient Information 2016 [employer]. No follow up information was provided. Extracted from: Title: Office Visit Note- Abd Author: Jackelin Crowley Date: 02/18/16 pain/nausea/diarrhea MIGUEL ANGEL Assessment/Plan Abdominal pain This is very mild at this time. Nothing near his usual pain with colitis/Crohn flare. Will check some labs today first. Ordered: CBC w/ Differential Comprehensive Metabolic Panel Office Visit Level 4 Est 87256 Urinalysis with Culture if Indicated Crohn's disease I am hopeful that this is just a gastroenteritis vs Crohn flare. Will check some labs. Ordered: Office Visit Level 4 Est 28315 Fever Tylenol or Ibuprofen as needed for fevers. Ordered: CBC w/ Differential Comprehensive Metabolic Panel Office Visit Level 4 Est 77011 Urinalysis with Culture if Indicated Nausea without vomiting Called out some Zofran for him to use for nausea as needed. Ordered: CBC w/ Differential Comprehensive Metabolic Panel Office Visit Level 4 Est 69344 Watery diarrhea [place] diet for now. Check labs today. Ordered: CBC w/ Differential Comprehensive Metabolic Panel Office Visit Level 4 Est 96446 Orders: ondansetron, 4 mg 1 tabs, Oral, q8hr, as needed for nausea/vomiting, # 10 tabs, 0 Refill(s), Pharmacy: [facility] #[id number], 1 tabs Oral q8hr,PRN :as needed for nausea/vomiting
--- OUTSIDE RECORDS SUMMARY | 2017-04-03 19:17 | External Medical Summary | Referral Summary ---
:1980 Author Organization [facility] Address [address] [place] [address] Care Team Providers Name Role Phone Bradley Reji Garcia Primary Care Physician Encounter VC Date(s): 10/19/15 - 10/19/15 [facility] [address] [place] [address]- [place] Discharge Disposition: 01-Home or [...] At Risk for Infection in Nutrition Planof [id number] added automatically by system based on initiation of Impaired Skin Integrity Plan of [id number] added automatically by system based on initiation of Knowledge Deficit Plan of Care Allergies, Adverse Reactions, Alerts Substance Reaction Severity Status Demerol HCl Hives Active meperidine Hives Active Medications amLODIPine 20 mg, Oral, Daily, 0 Refill(s) Start Date: 04/06/15 Status: OrderedazaTHIOprine 50 mg oral tablet 100 mg 2 tabs, Oral, Daily, 2 tabs daily with food, # 60 tabs, 6 Refill(s), Pharmacy: [facility] #[id number], 2 tabs Oral Daily,Instr:2 tabs daily ; with food Start Date: 09/04/15 Status: OrderedBlood pressure med Blood pressure med, Thinks it is lisinopril 5-10mg. Prescribed by Dr. Montiel, 0 Refill(s) Start Date: 05/05/15 Status: Orderedbudesonide 3 mg oral capsule, extended release 9 mg 3 caps, Oral, Daily, # 90 caps, 11 Refill(s), Pharmacy: [facility] # [id number], 3 caps Oral Daily Start Date: 09/04/15 [...] taper, # 30 tabs, 1 Refill(s), Pharmacy: [facility] # [id number], 1 tabs Oral Daily,Instr:3 a day and [...] day), # 30 tabs, 0 Refill(s), Pharmacy: [facility] #[id number], 1 tabs Oral Bedtime (once a day) Start Date: 12/23/14 Status: OrderedWellbutrin XL 300 mg/24 hours oral tablet, extended release 300 mg 1 tabs, Oral, Daily, # 30 tabs, 11 Refill(s), Pharmacy: [facility] #[id number], 1 tabs OralDaily Start Date: 09/04/15 Status: [...]
--- OUTSIDE RECORDS SUMMARY | 2017-04-03 19:17 | External Medical Summary | Referral Summary ---
:1980 Author Organization [facility], [facility] Address [address] [place] [address] [place] [address] Care Team Providers Name Role Phone Reji Huerta Primary Care Physician Encounter VC Date(s): 04/06/15 - 04/06/15 [facility], [address] [place] [address]- Discharge Diagnosis: Tobacco use Discharge Diagnosis: Crohn's [...] Pharmacy : [facility] #[id number], 2 tabs Oral Daily,Instr:2 tabs daily ; with food Start Date: 05/23/14 Status: Orderedbudesonide 3 mg oral capsule, extended release See Instructions, TAKE 3 CAPSULES BY MOUTH EVERY MORNING., # 90 unknown unit, 2 Refill(s), eRx: [facility] #[id number], TAKE 3 CAPSULES BY MOUTH EVERY MORNING. Start Date: 03/18/15 Status: OrderedFlagyl 500 mg oral tablet 500 mg 1 tabs, Oral, TID, # 2 tabs, 0 Refill(s) Start Date: 04/06/15 Status: OrderedPercocet 7.5/325 oral tablet 1 tabs, Oral, q6hr, as needed for pain, # 30 tabs, 0 Refill(s) Start Date: 12/01/14 Status: OrderedpredniSONE 20 mg oral tablet 20 [...] Refill(s), Pharmacy: [facility] #[id number], 1 tabs Oral Bedtime (once a day) [...]
--- OUTSIDE RECORDS SUMMARY | 2017-04-03 19:17 | External Medical Summary | Referral Summary ---
:1980 Author Organization [facility] Address [address] [place] [address] Care Team Providers Name Role Phone Reji Huerta Primary Care Physician Encounter VC Date(s): 06/18/15 - 06/18/15 [facility] [address] [place] [address]- [place] Discharge Diagnosis: Crohn's disease Discharge Disposition: 01-Home or Self Care Attending Physician: Cristobal Olivares MD Admitting Physician: Cristobal Olivares MD Referring Physician: Reji Huerta MD Vital Signs No [...] At Risk for Infection in Nutrition Planof [id number] added automatically by system based on initiation of Impaired Skin Integrity Plan of [id number] added automatically by system based on initiation of Knowledge Deficit Plan of Care Allergies, Adverse Reactions, Alerts Substance Reaction Severity Status Demerol HCl Hives Active meperidine Hives Active Medications amLODIPine 20 mg, Oral, Daily, 0 Refill(s) Start Date: 04/06/15 Status: OrderedazaTHIOprine 50 mg oral tablet 100 mg 2 tabs, Oral, Daily, 2 tabs daily with food, # 60 tabs, 3 Refill(s), Pharmacy: [facility] #[id number], 2 tabs Oral Daily,Instr:2 tabs daily ; with food Start Date: 05/06/15 Status: OrderedBlood pressure med Blood pressure med, Thinks it is lisinopril 5-10mg. Prescribed by Dr. Montiel, 0 Refill(s) Start Date: 05/05/15 Status: Orderedbudesonide 3 mg oral capsule, extended release 9 mg 3 caps, Oral, Daily, # 90 caps, 11 Refill(s), Pharmacy: [facility] # [id number], 3 caps Oral Daily Start Date: 05/14/15 [...] day), # 30 tabs, 0 Refill(s), Pharmacy: [facility] #[id number], 1 tabs Oral Bedtime (once a day) [...] Extracted from: Title: Ambulatory Patient Education Author: Shahid Jiang MD Date: 06/18/15 Family Medicine Crohn Disease Crohn disease is [...] 03/08/2006 Document Revised: 10/13/2014 Document Reviewed: 02/04/2008 [facility] Patient Information 2015 [employer]. This information is not intended to replace advice given to you by your health care provider. Make sure you discuss any questions you have with your health care provider. No follow up information was provided. Extracted from: Title: Surgery Post Op Office Visit Note Author: Shahid Jiang MD Date: 06/18 Assessment/Plan Crohn's disease Nina is doing well postoperatively. I did remove his ryder here in the office today and place Steri-Strips. He understands he's to do no lifting more than 20 pounds for a total o f 6 weeks from surgery. He also understands he has any problems with his incision or any other concerns he ' s to return to the office. He is going to follow-up with Dr. Musa for his Remicade and continued treatment for his Crohn ' s. Ordered: Postoperative Est [id number]
--- OUTSIDE RECORDS SUMMARY | 2017-04-03 19:18 | External Medical Summary ---
:1980 Author Organization [facility] Address [address] [place] [address] Care Team Providers Name Role Phone EileenKurt hendricks Unavailable Unavailable PROBLEMS Unknown Problems ALLERGIES Unknown Allergies SOCIAL HISTORY No smoking Hx information available PLAN OF CARE VITAL SIGNS MEDICATIONS Unknown Medications RESULTS No Results PROCEDURES No Known procedures IMMUNIZATIONS No Known Immunizations
--- OUTSIDE RECORDS SUMMARY | 2017-04-03 19:18 | External Medical Summary | Referral Summary ---
:1980 Author Organization [facility] Address [address] [place] [address] [place] [address] Care Team Providers Name Role Phone Reji Huerta Primary Care Physician Encounter VC Date(s): 01/22/16 - 01/22/16 [facility] JEANNIE Benitez [address] [place] [address]- [place] Discharge Disposition: 01-Home or Self Care Attending Physician: Reji Huerta MD Admitting Physician: Reji Huerta MD Vital Signs Most recent to oldest [Reference Range]: 1 Blood Pressure [90-140/60-90 mmHg] 104/66 mmHg (01/22/16 1:40 PM) Problem List Condition Effective Dates Status [...] At Risk for Infection in Nutrition Planof [id number] added automatically by system based on initiation of Impaired Skin Integrity Plan of Itsw9Cfgbvpy added automatically by system based on initiation of Knowledge Deficit Plan of Care Allergies, Adverse Reactions, Alerts Substance Reaction Severity Status Demerol HCl Hives Active meperidine Hives Active Medications azaTHIOprine 50 mg oral tablet 100 mg 2 tabs, Oral, Daily, 2 tabs daily with food, # 60 tabs, 6 Refill(s), Pharmacy: [facility] #[id number], 2 tabs Oral Daily,Instr:2 tabs daily ; with food Start Date: 09/04/15 Status: OrderedBlood pressure med Blood pressure med, Thinks it is lisinopril 5-10mg. Prescribed by Dr. Montiel, 0 Refill(s) Start Date: 05/05/15 Status: Orderedbudesonide 3 mg oral capsule, extended release 9 mg 3 caps, Oral, Daily, # 90 caps, 11 Refill(s), Pharmacy: [facility] # [id number], 3 caps Oral Daily Start Date: 09/04/15 Status: OrderedCeleXA 20 mg oral tablet 20 mg 1 tabs, Oral, Daily, DC order for Vibryd, # 30 tabs, 1 Refill(s), Pharmacy : [facility] #[id number], 1 tabs Oral Daily,Instr:DC order for Vibryd Start Date: 12/11/15 Status: OrderedPentasa 500 mg oral capsule, extended release See Instructions, 2 caps Oral BID, # 96 caps, 0 Refill(s), samples given to patient (Rx) Start Date: 04/22/15 Status: OrderedPercocet 10/325 oral tablet 1 tabs, Oral, q6hr, as needed for pain, rx must last 30 days/ PT. NEEDS AN APPT. , # 120 tabs, 0 Refill(s) Start Date: 01/06/16 Status: OrderedRemicade 100 mg intravenous injection See [...] TID, N. Darrian's RX must last 30 days/PT. NEEDS AN APPT., # 90 tabs, 0 Refill(s) Start Date: 01/08/16 Status: OrderedWellbutrin XL 300 mg/24 hours oral tablet, extended release 300 mg 1 tabs, Oral, Daily, # 30 tabs, 11 Refill(s), Pharmacy: [facility] #[id number], 1 tabs OralDaily Start Date: 09/04/15 Status: Ordered Results Hematology Most recent to oldest [Reference Range]: 1 WBC [4.8-10.8 10*3/uL] 8.2 10*3/uL (01/22/16 2:25 PM) RBC [4.60-6.20] 4.19 *LOW* (01/22/16 2:25 PM) Hgb [14.0-18.0 gm/dL] 14.6 gm/dL (01/22/16 2:25 PM) Hct [42.0-52.0 %] 41.2 % *LOW* (01/22/16 2:25 PM) MCV [82.0-99.0 fL] 98.3 fL (01/22/16 2:25 PM) MCH [27.0-32.0 pg] 34.8 pg *HI* (01/22/16 2:25 PM) MCHC [32.0-36.0 gm/dL] 35.4 gm/dL (01/22/16 2:25 PM) RDW [11.5-14.5 %] 13.1 % (01/22/16 2:25 PM) Platelet [150-400 10*3/uL] 258 10*3/uL (01/22/16 2:25 PM) MPV [8.8-14.8 fL] 10.7 fL (01/22/16 2:25 PM) Immature Granulocytes [0.0-1.0 %] 0.1 % (01/22/16 2:25 PM) Neutrophils [51-75 %] 84 % *HI* (01/22/16 2:25 PM) Lymphocytes [20-46 %] 14 % *LOW* (01/22/16 2:25 PM) Monocytes [4-11 %] 2 % *LOW* (01/22/16 2:25 PM) Eosinophils [0-4 %] 1 % (01/22/16 2:25 PM) Basophils [0-2 %] 0 % (01/22/16 2:25 PM) Neutro Absolute [1.90-7.00 10*3] 6.81 10*3 (01/22/16 2:25 PM) Lymph Absolute [0.80-3.30 10*3] 1.11 10*3 (01/22/16 2:25 PM) Corson Absolute [0.30-1.00 10*3] 0.17 10*3 *LOW* (01/22/16 2:25 PM) Eos Absolute [0.00-0.50 10*3] 0.04 10*3 (01/22/16 2:25 PM) Baso Absolute [0.00-0.20 10*3] 0.02 10*3 (01/22/16 2:25 PM) Chemistry Most recent to oldest [Reference Range]: 1 Sodium Lvl [135-144 mEq/L] 139 mEq/L (01/22/16 2:25 PM) Potassium Lvl [3.5-5.2 mEq/L] 4.5 mEq/L (01/22/16 2:25 PM) Chloride [99-111 mEq/L] 107 mEq/L (01/22/16 2:25 PM) CO2 [23-31 mEq/L] 25 mEq/L (01/22/16 2:25 PM) AGAP [3-20] 7 (01/22/16 2:25 PM) BUN [9-21 mg/dL] 9 mg/dL (01/22/16 2:25 PM) Glucose Lvl [70-99 mg/dL] 111 mg/dL *HI* (01/22/16 2:25 PM) Creatinine Lvl [0.72-1.25 mg/dL] 0.84 mg/dL (01/22/16 2:25 PM) eGFR [>60 mL/min] >60 mL/min 1 (01/22/16 2:25 PM) Calcium Lvl [8.9-10.5 mg/dL] 9.5 mg/dL (01/22/16 2:25 PM) Albumin Lvl [3.5-5.0 gm/dL] 4.3 gm/dL (01/22/16 2:25 PM) Total Protein [6.1-7.7 gm/dL] 7.1 gm/dL 2 (01/22/16 2:25 PM) Globulin [1.8-4.0 gm/dL] 2.8 gm/dL (01/22/16 2:25 PM) ALT [0-55 U/L] 15 U/L (01/22/16 2:25 PM) AST [5-34 U/L] 15 U/L (01/22/16 2:25 PM) Alk Phos [40-150 U/L] 101 U/L (01/22/16 2:25 PM) Bili Total [0.2-1.2 mg/dL] 0.6 mg/dL (01/22/16 2:25 PM) PTH (Parathyroid Hormone) [6.6-88.9 pg/mL] 47.2 pg/mL (01/22/16 2:25 PM) Estimated Creatinine Clearance 125.53 mL/min (01/22/16 8:23 PM) T4 [4.8-11.7 mcg/dL] 6.8 mcg/dL (01/22/16 2:25 PM) TSH [0.35-4.94] 0.52 (01/22/16 2:25 PM) 1Result Comment: Multiply eGFR results by 1.21 for race.2Result Comment: Please note new reference range for adult Protein. 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 You may also have tests to help [...] 03/08/2006 Document Revised: 06/19/2015 Document Reviewed: 01/14/2015 [facility] Patient Information 2016 [employer] [facility]. Weakness Weakness is a lack of strength. It may be felt all over the body (generalized) or in one specific part of the body (focal). Some causes of weakness can be serious. You may need further medical evaluatio n, especially if you are elderly or you have a history of immunosuppression ( such as chemotherapy or HIV), kidney disease, heart disease, or diabetes. CAUSES Weakness can be caused by many different things, including: Infection. Physical exhaustion. Internal bleeding or other blood loss that results in a lack of red blood cells (anemia). Dehydration. This cause is more common in elderly people. Side effects or electrolyte abnormalities from medicines, such as pain medicines or sedatives. Emotional distress, anxiety, or depression. Circulation problems, especially severe peripheral arterial disease. Heart disease, such as rapid atrial fibrillation, bradycardia, or heart failure. Nervous system disorders, such as Guillain-Mix syndrome, multiple sclerosis, or stroke. DIAGNOSIS To find the cause of your weakness, your caregiver will take your history and perform a physical exam. Lab tests or X-rays may also be ordered, if needed. TREATMENT Treatment of weakness depends on the cause of your symptoms and can vary greatly. HOME CARE INSTRUCTIONS Rest as needed. Eat a well-balanced diet. Try to get some exercise every day. Only take weld-qon-xsjpkis or prescription medicines as directed by your caregiver. SEEK MEDICAL CARE IF: Your weakness seems to be getting worse or spreads to other parts of your body. You develop new aches or pains. SEEK IMMEDIATE MEDICAL CARE IF: You cannot perform your normal daily activities, such as getting dressed and feeding yourself. You cannot walk up and down stairs, or you feel exhausted when you do so. You have shortness of breath or chest pain. You have difficulty moving parts of your body. You have weakness in only one area of the body or on only one side of the body. You have a fever. You have trouble speaking or swallowing. You cannot control your bladder or bowel movements. You have black or bloody vomit or stools. MAKE SURE YOU: Understand these instructions. Will watch your condition. Will get help right away if you are not doing well or get worse. This information is not intended to replace advice given to you by your health care provider. Make sure you discuss any questions you have with your health care provider. Document Released: 05/29/2006 Document Revised: 11/27/2012 Document Reviewed: 07/27/2012 [facility] Patient Information 2016 [employer] [facility]. Depression, Adult Depression refers to feeling sad, low, down in the dumps, blue, gloomy, or empty. In general, there are two kinds of depression: 1.Normal sadness or normal grief. This kind of depression is one that we all feel from time to time after upsetting life experiences, such as the loss of a job or the ending of a relationship. This kind of depression is considered normal, is short lived, and resolves within a few days to 2 weeks. Depression experienced after the loss of a loved one ( bereavement) often lasts longer than 2 weeks but normally gets better with time. 2.Clinical depression. This kind of depression lasts longer than normal sadness or normal grief or interferes with your ability to function at home, at work, and in school. It also interferes with y our personal relationships. It affects almost every aspect of your life. Clinical depression is an illness. Symptoms of depression can also be caused by conditions other than those mentioned above, such as: Physical illness. Some physical illnesses, including underactive thyroid gland (hypothyroidism), severe anemia, specific types of cancer, diabetes, uncontrolled seizures, heart and lung problems, strokes, and chronic pain are commonly associated with symptoms of depression. Side effects of some prescription medicine. In some people, certain types of medicine can cause symptoms of depression. Substance abuse. Abuse of alcohol and illicit drugs can cause symptoms of depression. SYMPTOMS Symptoms of normal sadness and normal grief include the following: Feeling sad or crying for short periods of time. Not caring about anything (apathy). Difficulty sleeping or sleeping too much. No longer able to enjoy the things you used to enjoy. Desire to be by oneself all the time (social isolation). Lack of energy or motivation. Difficulty concentrating or remembering. Change in appetite or weight. Restlessness or agitation. Symptoms of clinical depression include the same symptoms of normal sadness or normal grief and also the following symptoms: Feeling sad or crying all the time. Feelings of guilt or worthlessness. Feelings of hopelessness or helplessness. Thoughts of suicide or the desire to harm yourself (suicidal ideation). Loss of touch with reality (psychotic symptoms). Seeing or hearing things that are not real (hallucinations) or having false beliefs about your life or the people around you (delusions and paranoia). DIAGNOSIS The diagnosis of clinical depression is usually based on how bad the symptoms are and how long they have lasted. Your health care provider will also ask you questions about your medical history and subs tance use to find out if physical illness, use of prescription medicine, or substance abuse is causing your depression. Your health care provider may also order blood tests. TREATMENT Often, normal sadness and normal grief do not require treatment. However, sometimes antidepressant medicine is given for bereavement to ease the depressive symptoms until they resolve. The treatment for clinical depression depends on how bad the symptoms are but often includes antidepressant medicine, counseling with a mental health professional, or both. Your health care provider lawrence l help to determine what treatment is best for you. Depression caused by physical illness usually goes away with appropriate medical treatment of the illness. If prescription medicine is causing depression , talk with your health care provider about stopp ing the medicine, decreasing the dose, or changing to another medicine. Depression caused by the abuse of alcohol or illicit drugs goes away when you stop using these substances. Some adults need professional help in order to stop drinking or using drugs. SEEK IMMEDIATE MEDICAL CARE IF: You have thoughts about hurting yourself or others. You lose touch with reality (have psychotic symptoms). You are taking medicine for depression and have a serious side effect. FOR MORE INFORMATION National [employer] on Mental Illness: www.raul.org National [employer] of Mental Health: www.nimh.nih.gov This information is not intended to replace advice given to you by your health care provider. Make sure you discuss any questions you have with your health care provider. Document Released: 05/26/2001 Document Revised: 06/19/2015 Document Reviewed: 08/27/2012 [employer] Patient Information 2016 [facility] [employer] [facility]. No follow up information was provided. Extracted from: Title: Office Visit Note Author: Reji Huerta MD Date: 01/22/16 Assessment/Plan Chronic depression Continue with the current medication Ordered: CBC w/ Differential Office Visit Level 4 Est 49156 Chronic fatigue Will evaluate with lab. Ordered: CBC w/ Differential Office Visit Level 4 Est 06686 T4 TSH 3rd Generation Crohn's disease No change in treatment. Ordered: Comprehensive Metabolic Panel Office Visit Level 4 Est 83285 Depression Improving. Ordered: Comprehensive Metabolic Panel Office Visit Level 4 Est 79890 Hypocalcemia Lab. Ordered: Office Visit Level 4 Est 11641 PTH
--- OUTSIDE RECORDS SUMMARY | 2017-04-03 19:18 | External Medical Summary | Referral Summary ---
:1980 Author Organization Via JEANNIE Benitez [facility] Address [address] [place] [address] Care Team Providers Name Role Phone Reji Huerta Primary Care Physician Encounter VC Date(s): 12/29/14 - 12/29/14 [facility] [address] [place] [address]- [place] Discharge Diagnosis: Crohns disease of small and large intestines Discharge Diagnosis: Diarrhea Discharge Diagnosis: Hematochezia Discharge Diagnosis: High risk medication use Discharge Diagnosis: Depression Discharge Diagnosis: Crohns disease Discharge Disposition: 01-Home or Self Care Attending Physician: Candida Luke Admitting Physician: Candida Luke Referring Physician: Reji Huerta MD Vital Signs Most recent to oldest [Reference Range]: 1 Peripheral Pulse Rate [60-100 bpm] 89 bpm (12/29/14 9:07 AM) Blood Pressure [90-140/60-90 mmHg] 112/69 mmHg (12/29/14 9:07 AM) Problem List Condition Effective Dates Status [...] At Risk for Infection in Nutrition Planof [id number] added automatically by system based on initiation of Impaired Skin Integrity Plan of [id number] added automatically by system based on initiation of Knowledge Deficit Plan of Care Allergies, Adverse Reactions, Alerts Substance Reaction Severity Status Demerol HCl Hives Active meperidine Hives Active Medications amLODIPine 20 mg, Oral, Daily, 0 Refill(s) Start Date: 04/06/15 Status: OrderedazaTHIOprine 50 mg oral tablet 100 mg 2 tabs, Oral, Daily, 2 tabs daily with food, # 60 tabs, 3 Refill(s), Pharmacy: [facility] #[id number], 2 tabs Oral Daily,Instr:2 tabs daily ; with food Start Date: 05/06/15 Status: OrderedBlood pressure med Blood pressure med, Thinks it is lisinopril 5-10mg. Prescribed by Dr. Montiel, 0 Refill(s) Start Date: 05/05/15 Status: Orderedbudesonide 3 mg oral capsule, extended release 9 mg 3 caps, Oral, Daily, # 90 caps, 11 Refill(s), Pharmacy: [facility] # [id number], 3 caps Oral Daily Start Date: 05/14/15 [...] # 120 tabs, 0 Refill(s) Start Date: 07/08/15 Status: OrderedRemicade 100 mg intravenous injection See [...] day), # 30 tabs, 0 Refill(s), Pharmacy: [facility] #[id number], 1 tabs Oral Bedtime (once a day) [...] Office Visit Note Author: Candida Luke Date: 12/29/14 Assessment/Plan 1.Diarrhea 2.Hematochezia Crohns disease Ordered: CBC w/ Differential Comprehensive Metabolic Panel Infliximab and Anti-Infliximab Ab-Carreon Sedimentation Rate Crohns disease of small and large intestines Ordered: [employer] Thiopurine Metabolites-Slinger Depression High risk medication use Dr. Murray came into the roomand talked to the patient. We reviewed the medications, laboratory testing, proceduresand previous records. Also discussed the current condition and symptoms. Continue current therapy and await further lab investigation with medication levels and other maintenance labs. Return to clinic in 2 weeks. Addendum by Candida Luke on December Notified the PCP of the need for addressing 2014 17:30:44 CDT his depression and suicidal ideation- he does assure me he will not harm himself. Addendum by Barby Murray III, MD on The patient was seen with Candida Luke January 10, 2015 10:11:21 CDT PA-C, and I agree with the above assessment and plan.
--- OUTSIDE RECORDS SUMMARY | 2017-04-03 19:18 | External Medical Summary | Referral Summary ---
:1980 Author Organization Via [facility] Address [address] [place] [address] Care Team Providers Name Role Phone Bradley Reji Garcia Primary Care Physician Encounter VC Date(s): 01/19/15 - 01/19/15 [facility] [address] [place] [address]- [place] Discharge Disposition: 01-Home or [...] At Risk for Infection in Nutrition Planof [id number] added automatically by system based on initiation of Impaired Skin Integrity Plan of [id number] added automatically by system based on initiation of Knowledge Deficit Plan of Care Allergies, Adverse Reactions, Alerts Substance Reaction Severity Status Demerol HCl Hives Active meperidine Hives Active Medications amLODIPine 20 mg, Oral, Daily, 0 Refill(s) Start Date: 04/06/15 Status: OrderedazaTHIOprine 50 mg oral tablet 100 mg 2 tabs, Oral, Daily, 2 tabs daily with food, # 60 tabs, 3 Refill(s), Pharmacy: [facility] #[id number], 2 tabs Oral Daily,Instr:2 tabs daily ; with food Start Date: 05/06/15 Status: OrderedBlood pressure med Blood pressure med, Thinks it is lisinopril 5-10mg. Prescribed by Dr. Montiel, 0 Refill(s) Start Date: 05/05/15 Status: Orderedbudesonide 3 mg oral capsule, extended release 9 mg 3 caps, Oral, Daily, # 90 caps, 11 Refill(s), Pharmacy: [facility] # [id number], 3 caps Oral Daily Start Date: 05/14/15 [...] day), # 30 tabs, 0 Refill(s), Pharmacy: [facility] #[id number], 1 tabs Oral Bedtime (once a day) [...]
--- OUTSIDE RECORDS SUMMARY | 2017-04-03 19:18 | External Medical Summary | Referral Summary ---
:1980 Author Organization [facility] Address [address] [place] [address] Care Team Providers Name Role Phone Reji Huerta Primary Care Physician Encounter VC Date(s): 01/22/16 - 01/22/16 [facility]ANN[facility] Ben[facility], [facility] [address] [place] [address]- [place] Discharge Disposition: 01-Home or [...] At Risk for Infection in Nutrition Planof [id number] added automatically by system based on initiation of Impaired Skin Integrity Plan of [id number] added automatically by system based on initiation of Knowledge Deficit Plan of Care Allergies, Adverse Reactions, Alerts Substance Reaction Severity Status Demerol HCl Hives Active meperidine Hives Active Medications azaTHIOprine 50 mg oral tablet 100 mg 2 tabs, Oral, Daily, 2 tabs daily with food, # 60 tabs, 6 Refill(s), Pharmacy: [facility] #[id number], 2 tabs Oral Daily,Instr:2 tabs daily ; with food Start Date: 09/04/15 Status: OrderedBlood pressure med Blood pressure med, Thinks it is lisinopril 5-10mg. Prescribed by Dr. Montiel, 0 Refill(s) Start Date: 05/05/15 Status: Orderedbudesonide 3 mg oral capsule, extended release 9 mg 3 caps, Oral, Daily, # 90 caps, 11 Refill(s), Pharmacy: [facility] # [id number], 3 caps Oral Daily Start Date: 09/04/15 Status: OrderedCeleXA 20 mg oral tablet 20 mg 1 tabs, Oral, Daily, DC order for Vibryd, # 30 tabs, 1 Refill(s), Pharmacy : [facility] #[id number], 1 tabs Oral Daily,Instr:DC order for Vibryd [...] Daily, # 30 tabs, 11 Refill(s), Pharmacy: [facility] #[id number], 1 tabs OralDaily Start Date: 09/04/15 Status: [...]
--- OUTSIDE RECORDS SUMMARY | 2017-04-03 19:18 | External Medical Summary | Referral Summary ---
:1980 Author Organization Via JEANNIE Benitez [facility] Address [address] [place] [address] Care Team Providers Name Role Phone Reji Huerta Primary Care Physician Encounter VC Date(s): 05/29/15 - 05/29/15 [facility] Ben[facility] [address] [place] [address]- [place] Discharge Disposition: 01-Home or Self Care Attending Physician: Cristobal Olivares MD Admitting Physician: Cristobal Olivares MD Referring Physician: Barby Murray III, MD Vital Signs Most recent to oldest [Reference Range]: 1 Peripheral Pulse Rate [60-100 bpm] 88 bpm (05/29/15 12:07 PM) Blood Pressure [90-140/60-90 mmHg] 150/90 mmHg *HI* (05/29/15 12:07 PM) Problem List Condition Effective Dates Status [...] food, # 60 tabs, 3 Refill(s), Pharmacy: [facility] #[id number], 2 tabs Oral Daily,Instr:2 tabs daily ; with food Start Date: 05/06/15 Status: OrderedBlood pressure med Blood pressure med, Thinks it is lisinopril 5-10mg. Prescribed by Dr. Montiel, 0 Refill(s) Start Date: 05/05/15 Status: Orderedbudesonide 3 mg oral capsule, extended release 9 mg 3 caps, Oral, Daily, # 90 caps, 11 Refill(s), Pharmacy: [facility] # [id number], 3 caps Oral Daily Start Date: 05/14/15 Status: Orderedmetoclopramide 10 mg oral tablet 10 mg 1 tabs, Oral, q6hr, # 6 tabs, 0 Refill(s), Pharmacy: [facility] # [id number], 1 tabs Oral q6hr Start Date: 05/14/15 [...] day), # 30 tabs, 0 Refill(s), Pharmacy: [facility] #[id number], 1 tabs Oral Bedtime (once a day) [...]
--- OUTSIDE RECORDS SUMMARY | 2017-04-03 19:18 | External Medical Summary | Referral Summary ---
:1980 Author Organization [facility] Address [address] [place] [address] Care Team Providers Name Role Phone Bradley Reji Garcia Primary Care Physician Encounter [facility] [id number] Date(s): 03/30/15 - 03/30/15 [facility] [address] [place] [address]- [place] Discharge Disposition: 01-Home or [...] At Risk for Infection in Nutrition Planof [id number] added automatically by system based on initiation of Impaired Skin Integrity Plan of [id number] added automatically by system based on initiation of Knowledge Deficit Plan of Care Allergies, Adverse Reactions, Alerts Substance Reaction Severity Status Demerol HCl Hives Active meperidine Hives Active Medications amLODIPine 20 mg, Oral, Daily, 0 Refill(s) Start Date: 04/06/15 Status: OrderedazaTHIOprine 50 mg oral tablet 100 mg 2 tabs, Oral, Daily, 2 tabs daily with food, # 60 tabs, 6 Refill(s), Pharmacy: [facility] #[id number], 2 tabs Oral Daily,Instr:2 tabs daily ; with food Start Date: 09/04/15 Status: OrderedBlood pressure med Blood pressure med, Thinks it is lisinopril 5-10mg. Prescribed by Dr. Montiel, 0 Refill(s) Start Date: 05/05/15 Status: Orderedbudesonide 3 mg oral capsule, extended release 9 mg 3 caps, Oral, Daily, # 90 caps, 11 Refill(s), Pharmacy: [facility] # [id number], 3 caps Oral Daily Start Date: 09/04/15 [...] taper, # 30 tabs, 1 Refill(s), Pharmacy: [facility] # [id number], 1 tabs Oral Daily,Instr:3 a day and [...] day), # 30 tabs, 0 Refill(s), Pharmacy: [facility] #[id number], 1 tabs Oral Bedtime (once a day) Start Date: 12/23/14 Status: OrderedWellbutrin XL 300 mg/24 hours oral tablet, extended release 300 mg 1 tabs, Oral, Daily, # 30 tabs, 11 Refill(s), Pharmacy: [facility] #[id number], 1 tabs OralDaily Start Date: 09/04/15 Status: [...]
--- OUTSIDE RECORDS SUMMARY | 2017-04-03 19:18 | External Medical Summary | Referral Summary ---
:1980 Author Organization [facility] [address] [place] [address] Care Team Providers Name Role Phone Reji Huerta Primary Care Physician Encounter VC Date(s): 01/11/16 - 01/11/16 [facility] [address] [place] [address] Discharge Diagnosis: Folliculitis barbae Discharge Disposition: 01-Home or Self Care Attending Physician: Jackelin Crowley PA-C Admitting Physician: Jackelin Crowley PA-C Vital Signs Most recent to oldest [Reference Range]: 1 Peripheral Pulse Rate [60-100 bpm] 76 bpm (01/11/16 4:20 PM) Blood Pressure [90-140/60-90 mmHg] 138/78 mmHg (01/11/16 4:20 PM) Problem List Condition Effective Dates Status [...] At Risk for Infection in Nutrition Planof [id number] added automatically by system based on initiation of Impaired Skin Integrity Plan of [id number] added automatically by system based on initiation of Knowledge Deficit Plan of Care Allergies, Adverse Reactions, Alerts Substance Reaction Severity Status Demerol HCl Hives Active meperidine Hives Active Medications amLODIPine 20 mg, Oral, Daily, 0 Refill(s) Start Date: 04/06/15 Status: OrderedazaTHIOprine 50 mg oral tablet 100 mg 2 tabs, Oral, Daily, 2 tabs daily with food, # 60 tabs, 6 Refill(s), Pharmacy: [facility] #[id number], 2 tabs Oral Daily,Instr:2 tabs daily ; with food Start Date: 09/04/15 Status: OrderedBlood pressure med Blood pressure med, Thinks it is lisinopril 5-10mg. Prescribed by Dr. Montiel, 0 Refill(s) Start Date: 05/05/15 Status: Orderedbudesonide 3 mg oral capsule, extended release 9 mg 3 caps, Oral, Daily, # 90 caps, 11 Refill(s), Pharmacy: [facility] # [id number], 3 caps Oral Daily Start Date: 09/04/15 Status: OrderedCeleXA 20 mg oral tablet 20 mg 1 tabs, Oral, Daily, DC order for Vibryd, # 30 tabs, 1 Refill(s), Pharmacy : [facility] #[id number], 1 tabs Oral Daily,Instr:DC order for Vibryd Start Date: 12/11/15 Status: OrderedKeflex 500 mg oral capsule 500 mg 1 caps, Oral, QID, X 7 days, # 28 caps, 0 Refill(s), Pharmacy: [facility] #[id number], 1 caps Oral QID,x7 days Start Date: 01/11/16 Stop Date: 01/18/16 Status: OrderedPentasa 500 mg oral capsule, extended release See Instructions, 2 caps Oral BID, # 96 caps, 0 Refill(s), samples given to patient (Rx) Start Date: 04/22/15 Status: OrderedPercocet 10/325 oral tablet 1 tabs, Oral, q6hr, as needed for pain, rx must last 30 days/ PT. NEEDS AN APPT. , # 120 tabs, 0 Refill(s) Start Date: 01/06/16 Status: OrderedpredniSONE 10 mg oral tablet 10 mg 1 tabs, Oral, Daily, 3 a day and call once he starts the remicade and will instruct on taper, # 30 tabs, 1 Refill(s), Pharmacy: [facility] # [id number], 1 tabs Oral Daily,Instr:3 a day and [...] tabs, 0 Refill(s) Start Date: 01/08/16 Status: OrderedtraZODone 50 mg oral tablet 50 mg 1 tabs, Oral, Bedtime (once a day), # 30 tabs, 0 Refill(s), Pharmacy: [facility] #[id number], 1 tabs Oral Bedtime (once a day) Start Date: 12/23/14 Status: OrderedWellbutrin XL 300 mg/24 hours oral tablet, extended release 300 mg 1 tabs, Oral, Daily, # 30 tabs, 11 Refill(s), Pharmacy: [facility] #[id number], 1 tabs OralDaily Start Date: 09/04/15 Status: [...] Patient Education Author: Jackelin Crowley PA-C Date: Family Medicine Folliculitis Folliculitis is redness, soreness, and swelling (inflammation) of the hair follicles. This condition can occur anywhere on the body. People with weakened immune systems, diabetes, or obesity have a greater risk of getting folliculitis. CAUSES Bacterial infection. This is the most common cause. Fungal infection. Viral infection. Contact with certain chemicals, especially oils and tars. Long-term folliculitis can result from bacteria that live in the nostrils. The bacteria may trigger multiple outbreaks of folliculitis over time. SYMPTOMS Folliculitis most commonly occurs on the scalp, thighs, legs, back, buttocks, and areas where hair is shaved frequently. An early sign of folliculitis is a small, white or yellow, pus-filled, itchy lesi on (pustule). These lesions appear on a red, inflamed follicle. They are usually less than 0.2 inches (5 mm) wide. When there is an infection of the follicle that goes deeper, it becomes a boil or furun michi. A group of closely packed boils creates a larger lesion (carbuncle). Carbuncles tend to occur in hairy, sweaty areas of the body. DIAGNOSIS Your caregiver can usually tell what is wrong by doing a physical exam. A sample may be taken from one of the lesions and tested in a lab. This can help determine what is causing your folliculitis. TREATMENT Treatment may include: Applying warm compresses to the affected areas. Taking antibiotic medicines orally or applying them to the skin. Draining the lesions if they contain a large amount of pus or fluid. Laser hair removal for cases of long-lasting folliculitis. This helps to prevent regrowth of the hair. HOME CARE INSTRUCTIONS Apply warm compresses to the affected areas as directed by your caregiver. If antibiotics are prescribed, take them as directed. Finish them even if you start to feel better. You may take cskr-iay-rzqizyl medicines to relieve itching. Do not shave irritated skin. Follow up with your caregiver as directed. SEEK IMMEDIATE MEDICAL CARE IF: You have increasing redness, swelling, or pain in the affected area. You have a fever. MAKE SURE YOU: Understand these instructions. Will watch your condition. Will get help right away if you are not doing well or get worse. This information is not intended to replace advice given to you by your health care provider. Make sure you discuss any questions you have with your health care provider. Document Released: 08/07/2002 Document Revised: 06/19/2015 Document Reviewed: 08/28/2012 [facility] Patient Information [address] [facility]. No follow up information was provided. Extracted from: Title: Office Visit Note- Folliculitis Author: Jackelin Crowley PA-C Date : 01/11/16 Assessment/Plan Folliculitis barbae D/w pt that he needs to keep the area clean with just soap and water. He can also use some warm compresses to the area as well. Will also treat him with Keflex x 1 week for now. Al so advised pt to stop picking at the lesions. He is to RTC if these are not improving or if they are worsening. Pt voiced understanding and agreed with plan. Ordered: Office Visit Level 3 Est 57008 Orders: cephalexin, 500 mg 1 caps, Oral, QID, X 7 days, # 28 caps, 0 Refill(s ), Pharmacy: [facility] #[id number], 1 caps Oral QID,x7 days
--- OUTSIDE RECORDS SUMMARY | 2017-04-03 19:18 | External Medical Summary | Referral Summary ---
:1980 Author Organization [facility], [facility] Address [address] [place] [address] Care Team Providers Name Role Phone Huerta Reji Radha Primary Care Physician Encounter [facility] [id number] Date(s): 01/13/15 - 01/13/15 [facility] [address] [place] [address] [place] Discharge Diagnosis: Hematuria syndrome Discharge Diagnosis: High risk medication use Discharge Diagnosis: Crohn's disease Discharge Diagnosis: Depression Discharge Disposition: 01-Home or Self Care Attending Physician: Candida Luke Admitting Physician: Candida Luke Vital Signs Most recent to oldest [Reference Range]: 1 Peripheral Pulse Rate [60-100 bpm] 96 bpm (01/13/15 1:41 PM) Blood Pressure [90-140/60-90 mmHg] 114/88 mmHg (01/13/15 1:41 PM) Problem List Condition Effective Dates Status [...] At Risk for Infection in Nutrition Planof [id number] added automatically by system based on initiation of Impaired Skin Integrity Plan of [id number] added automatically by system based on initiation of Knowledge Deficit Plan of Care Allergies, Adverse Reactions, Alerts Substance Reaction Severity Status Demerol HCl Hives Active meperidine Hives Active Medications amLODIPine 20 mg, Oral, Daily, 0 Refill(s) Start Date: 04/06/15 Status: OrderedazaTHIOprine 50 mg oral tablet 100 mg 2 tabs, Oral, Daily, 2 tabs daily with food, # 60 tabs, 3 Refill(s), Pharmacy: [facility] #[id number], 2 tabs Oral Daily,Instr:2 tabs daily ; with food Start Date: 05/06/15 Status: OrderedBlood pressure med Blood pressure med, Thinks it is lisinopril 5-10mg. Prescribed by Dr. Montiel, 0 Refill(s) Start Date: 05/05/15 Status: Orderedbudesonide 3 mg oral capsule, extended release 9 mg 3 caps, Oral, Daily, # 90 caps, 11 Refill(s), Pharmacy: [facility] # [id number], 3 caps Oral Daily Start Date: 05/14/15 [...] 350 mg 1 tabs, Oral, TID, Juli Colmenares'dustin, # 90 tabs, 0 Refill(s) Start Date: 06/08/15 Status: OrderedtraZODone 50 mg oral tablet 50 mg 1 tabs, Oral, Bedtime (once a day), # 30 tabs, 0 Refill(s), Pharmacy: [facility] #[id number], 1 tabs Oral Bedtime (once a day) Start Date: 12/23/14 Status: OrderedViibryd 20 mg oral tablet mg tabs, Oral, Daily, 0 Refill(s) Start Date: 04/06/15 Status: OrderedWellbutrin XL 150 mg/24 hours oral tablet, extended release See Instructions, 3 tabs Oral q24hr, # 60 tabs, 2 Refill(s) Start Date: 06/25/14 Status: Ordered Results Urinalysis Most recent to oldest [Reference Range]: 1 UA Color Yellow (01/13/15 2:40 PM) UA Appear Clear (01/13/15 2:40 PM) UA pH [5.0-8.0] 6.0 (01/13/15 2:40 PM) UA Leuk Est [Negative] Negative (01/13/15 2:40 PM) UA Nitrite [Negative] Negative (01/13/15 2:40 PM) UA Protein [Negative] Negative (01/13/15 2:40 PM) UA Glucose [Negative] Negative (01/13/15 2:40 PM) UA Ketones [Negative] Negative (01/13/15 2:40 PM) UA Urobilinogen [<1.0 mg/dL] 0.2 mg/dL (01/13/15 2:40 PM) UA Bili [Negative] Negative (01/13/15 2:40 PM) UA Blood [Negative] Negative (01/13/15 2:40 PM) UA Spec Grav [1.003-1.030] 1.014 (01/13/15 2:40 PM) Type Clean Catch (01/13/15 2:40 PM) Immunizations Vaccine Date Refusal Reason pneumococcal [...] Office Visit Note Author: Candida Luke Date: 01/13/15 Assessment/Plan Crohn's disease Depression Hematuria syndrome High risk medication use Dr. Murray came into the roomand talked to the patient. We reviewed the medications, laboratory testing, proceduresand previous records. Also discussed the current condition and symptoms. We revie wed the patient's lab and we discussed his azathioprine metabolite as well as his Remicade level. His Remicade level was stable. The azathioprine metabolite was low. The patient does admit that he missed several doses and for the last week he is been taking it properly with 2 tablets daily. We will increase his dosage 125 mg daily. We will get a UA to recheck his urine for any blood. He is to continue his other medical regimen as outlining return to clinic in 1 month. Call if any questions or concerns or worsening symptoms. Labs,notes reviewed from [place]. Addendum by Barby Murray III, MD on The patient was seen with Candida Luke January 14, 2015 18:29:52 CDT MIGUEL ANGEL, and I agree with the above assessment and plan.
--- OUTSIDE RECORDS SUMMARY | 2017-04-03 19:18 | External Medical Summary | Referral Summary ---
:1980 Author Organization [facility], [facility] Address [address] [place] [address] Care Team Providers Name Role Phone Reji Huerta Primary Care Physician Encounter [facility] Date(s): 05/20/16 - 05/20/16 [facility] [address] [place] [address]- [place] Discharge Disposition: 01-Home or [...] At Risk for Infection in Nutrition Planof [id number] added automatically by system based on initiation of Impaired Skin Integrity Plan of [id number] added automatically by system based on initiation of Knowledge Deficit Plan of Care Allergies, Adverse Reactions, Alerts Substance Reaction Severity Status Demerol HCl Hives Active meperidine Hives Active Medications Anusol-HC 2.5% topical cream 1 tamie, Topical, TID, # 30 g, 2 Refill(s), Pharmacy: [facility] #[id number] Start Date: 05/20/16 Status: OrderedazaTHIOprine 50 mg oral tablet 100 mg 2 tabs, Oral, Daily, 2 tabs daily with food, # 60 tabs, 6 Refill(s), Pharmacy: [facility] #[id number], 2 tabs Oral Daily,Instr:2 tabs daily ; with food Start Date: 09/04/15 Status: OrderedBlood pressure med Blood pressure med, Thinks it is lisinopril 5-10mg. Prescribed by Dr. Montiel, 0 Refill(s) Start Date: 05/05/15 Status: Orderedbudesonide 3 mg oral capsule, extended release 9 mg 3 caps, Oral, Daily, # 90 caps, 11 Refill(s), Pharmacy: [facility] # [id number], 3 caps Oral Daily Start Date: 09/04/15 Status: OrderedCeleXA 20 mg oral tablet 20 mg 1 tabs, Oral, Daily, 2 tabs oral daily, increased by PV but he wants Dr. Huerta to refill., #30 tabs, 1 Refill(s), Pharmacy: [facility] #[id number], 1 tabs Oral Daily,Instr:DC order for Vibryd Start Date: 02/12/16 Status: OrderedNuLYTELY with Flavor Packs oral powder for reconstitution 240 mL, Oral, q15min, # 4,000 mL, 0 Refill(s), Pharmacy: [facility] # [id number] Start Date: 04/15/16 Status: OrderedNuLYTELY with Flavor Packs oral powder for reconstitution 240 mL, Oral, q15min, # 4,000 mL, 0 Refill(s), Pharmacy: [facility] # [id number] Start Date: 05/16/16 Status: OrderedPentasa 500 mg oral capsule, extended release See Instructions, 2 caps Oral BID, # 96 caps, 0 Refill(s), samples given to patient (Rx) Start Date: 04/22/15 Status: OrderedPercocet 10/325 oral tablet 1 tabs, Oral, q6hr, as needed for pain, rx must last 30 days, # 120 tabs, 0 Refill(s) Start Date: 05/12/16 Status: OrderedRemicade 100 mg intravenous injection See [...] 90 tabs, 0 Refill (s) Start Date: 05/12/16 Status: OrderedWellbutrin XL 300 mg/24 hours oral tablet, extended release See Instructions, 1.5 tabs oral daily, increased by PV but pt wants Dr. Huerta to refill., # 45 tabs, 11 Refill(s), Pharmacy: [facility] #[id number], 1 tabs Oral Daily Start Date: 09/04/15 [...]
[2017-04-03] MEDS ORDERED: ONDANSETRON 4 MG/2 ML INJECTION IVP PRN (21:12)
[2017-04-03] MEDS ORDERED: NS 1,000 ML IV SCH (21:12)
[2017-04-03 21:52] VITALS: BMI 23.0
--- NOTE | 2017-04-03 22:04 | History & Physical Report ---
<Surjit Pepe E - Last Filed: 04/03/17 22:01> History of Present Illness Date: 04/03/17 Chief complaint: Suicidal gesture and overdose HPI: 36-year-old male presents to the [facility] ER tonight after an apparent suicidal gesture with drug ingestion/overdose. Per the ER physician, he engaged in an argument with his girlfriend earlier today. He subsequently ingested Ativan and Flexeril at around 6 o'clock this evening. He arrived to the ER via EMS approximately 30 minutes after the ingestion. It is unknown exactly how much Ativan and Flexeril he ingested, but based on his prescription and when it was filled, perhaps up to 30 mg of Ativan and up to 300 mg of Flexeril. He has a reported history of suicidal gestures and overdoses in his past. He was given flumazenil times 2 doses in route by EMS. He arrived lethargic, but protecting his airway. While in the ER, he has been given a couple leaders of IV fluids. His hemodynamic and respiratory status have both been stable. He is on room air. Laboratory results are unremarkable. Toxicology screen is positive for TCA, benzos, opiates, cannabinoids. ER physician is requesting admission to the ICU this evening for close monitoring, suicide precautions, and psychiatric consultation in the morning. Please note: This patient encounter was performed via the use of telemedicine technology. Review of Systems ROS unobtainable: due to mental status [facility] Medical History (Last Updated 01/17/17 @ 11:36 by HOWARD Betancourt) Anxiety (Chronic Medical) Crohn disease (Chronic Medical) Depression (Chronic Medical) Surgical History: hip replacement. colectomy resection Family History: Family History (Last Updated 01/17/17 @ 11:38 by HOWARD Betancourt) Mother Arthritis High blood pressure High cholesterol Father High blood pressure Arthritis Paternal Grandfather Lung cancer Heart attack - Social History Smoking status: Current every day smoker Medications Home Medications Medication Instructions Recorded Confirmed Type BuPROPion XL [Wellbutrin Xl] 300 mg PO DAILY 04/03/17 04/03/17 History Budesonide [Entocort EC] 9 mg PO DAILY 04/03/17 04/03/17 History Citalopram [Celexa] 40 mg PO HS 04/03/17 04/03/17 History Cyclobenzaprine [Flexeril] 10 mg PO TID PRN 04/03/17 04/03/17 History Diphenoxylate/Atropine [Lomotil] 1 tab PO QID PRN 04/03/17 04/03/17 History Hydrocortisone Sod Succinate 100 mg IM Q2M 04/03/17 04/03/17 History [Solu-Cortef] Infliximab [Remicade] 100 mg IV Q2M 04/03/17 04/03/17 History LORazepam [Ativan] 0.5 mg PO BID PRN 04/03/17 04/03/17 History Mesalamine [Pentasa] 1,000 mg PO BID 04/03/17 04/03/17 History Oxycodone/Apap [Percocet 1 tab PO Q6H PRN 04/03/17 04/03/17 History 10325] azaTHIOprine [Imuran] 100 mg PO DAILY 04/03/17 04/03/17 History Allergies Allergy/AdvReac Type Severity Reaction Status Date / Time meperidine [From Demerol] Allergy Unknown UNKNOWN Verified 04/03/17 21:16 Exam Vital Signs: Temperature 97.1 F 04/03/17 18:49 Pulse Rate 82 04/03/17 21:25 Respiratory Rate 12 04/03/17 21:25 Blood Pressure 117/72 04/03/17 21:25 Pulse Oximetry 97 04/03/17 21:25 Height/Weight/BMI: Height 1.8 m Weight 74.9 kg Body Mass Index 23.0 - Constitutional Comments: Somnolent, protects airway. No acute distress. Nursing staff states he will wake up to physical stimulus and look around the room. - Routine HEENT Exam Head: Present: normocephalic, atraumatic - Routine Neck Exam Present: supple - Routine Respiratory Exam Present: CTA bilaterally. Absent: respiratory distress, rhonchi, stridor, wheezes - Routine Cardiovascular Exam Present: RRR - Routine Abdominal Exam Present: soft, non distended, non tender - Routine Extremities Exam Absent: edema - Routine Skin Exam Absent: rash - Routine Neurological Exam As above Results - Labs CBC & Chem 7: 04/03/17 19:07 04/03/17 19:07 Assessment and Plan (1) Polysubstance overdose Current visit: Yes Status: Acute DVT Prophylaxis: SCD's Assessment and Plan: Assessment 1. Suicidal gesture with drug overdose, reportedly of flexeril and Ativan 2. Anxiety disorder with reported prior history of suicidality 3. History of Crohn's disease on disease modifying therapy and prior history of colectomy Plan Patient will be placed under full admission status to the ICU. Close hemodynamic and respiratory monitoring through the night. He is presently protecting his airway in an adequate fashion. He will be made NPO for now due to his depressed level of consciousness. Maintenance IV fluids will be provided. His home medication list has been reviewed. Plan to continue his medications for Crohn's disease. Reportedly, it is uncertain how compliant he is with his medications. This will need to be further delineated once he is more awake in the morning. He will be placed under suicide precautions. Psychiatric consultation will need to be obtained in the morning. DVT prophylaxis: [facility] Hospital Course Summary Disclaimer: The visit summary below is not to be considered part of the above Progress Note. <Joyce Hutchison - Last Filed: 04/04/17 09:50> History of Present Illness Date: 04/04/17 [facility] Patient Stated Medical History Asthma Yes: as a child Other GI Yes: CROHNS DISEASE Depression Yes Substance Use Disorder Yes Other Behavioral Health Yes: [facility] Medical History (Last Updated 01/17/17 @ 11:36 by HOWARD Betancourt) Anxiety (Chronic Medical) Crohn disease (Chronic Medical) Depression (Chronic Medical) Family History: Family History (Last Updated 01/17/17 @ 11:38 by HOWARD Betancourt) Mother Arthritis High blood pressure High cholesterol Father High blood pressure Arthritis Paternal Grandfather Lung cancer Heart attack Exam Vital Signs: Temperature 96.8 F 04/04/17 04:00 Pulse Rate 76 04/04/17 08:00 Respiratory Rate 10 04/04/17 06:00 Blood Pressure 98/58 04/04/17 06:00 Pulse Oximetry 99 04/04/17 06:00 Height/Weight/BMI: Height 1.8 m Weight 74.9 kg Body Mass Index 23.0 Results - Labs CBC & Chem 7: 04/04/17 04:08 04/04/17 04:08 Assessment and Plan (1) Polysubstance overdose Current visit: Yes Status: Acute Assessment and Plan: 04/04/2017-Dr. Hutchison I've seen and evaluated the patient. I've reviewed the H&P dictated above. I agree with the H&P above. Please see my additions below. Chief complaint: Suicide attempt with overdose of Ativan, Lomotil and ibuprofen History of present illness: The patient is seen this morning in CCU accompanied by his mother. The patient is a 36-year-old male with history of depression and anxiety and history of Crohn's disease with colectomy. He does not have a colostomy at this time. He states that he has had fleeting suicidal thoughts off and on but this past weekend he was having more suicidal thoughts. He told his mother yesterday that he wanted to be admitted to a long-term psychiatric hospital for depression. He and his have not been getting along. The patient states that last evening he took an overdose of Ativan, Lomotil and ibuprofen in an attempt to kill himself. He apparently walked down the stairs and then collapsed on the floor in front of his . Per the patient's mom, the patient's left him at home with her parents and called the patient's mother. The patient's mother arrived and called 911. EMS attempted to awaken him with sternal rub to no avail and they treated him with Romazicon 2 and he was brought into the emergency room. He was given IV fluids. He was able to protect his airway overnight in CCU. He became more alert and responsive around 2-4 a.m. per his nurse. This morning, the patient states he still feels suicidal and depressed. He does want to visit with a psychiatrist. He states that he thinks he has DPOA paperwork saying that his his DPOA, but now he wants his mother to make medical decisions if he cannot make them himself. When I first talked with him he said he was at [place] but quickly then changed and said he was at [facility]. He knew was March and [place] was the president. He thought it was 1986. Later when I asked him the year he knew it was 2016. This morning he states he feels "drained" and has some chest pressure and states his chest feels bruised. This is most likely from sternal rub. He appears tearful and mildly anxious. He admits to some mild shortness of breath. He states he's been having more diarrhea than usual. He's had some intermittent nausea. He complains of some right shoulder pain. He states he's been incontinent of urine off and on the past 1-1/2 weeks. He also complains of low back pain radiating down his right hip and leg to about the knee. He denies any numbness, tingling or weakness. He has some mild rhinitis from allergies. Comprehensive review of systems is negative other than the above in history of present illness Past medical history: Seasonal allergies, anxiety, depression, Crohn's disease, Perthes of the right leg. Patient had bradycardia and chest pain in March 2015. Echocardiogram at that time revealed systolic ejection fraction of 71%, mild left mitral regurg, mild tricuspid regurg, moderate pulmonary hypertension with PA pressure 46. Trace pulmonic insufficiency. Surgical history: Right hip replacement 2010 approximately, colon resection 2, partial 4 years ago in another 2 years ago Family history is reviewed and unchanged from above Social history: The patient is an every day smoker. He occasionally drinks alcohol. 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 He is . 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 Physical exam: But pressure 145/87, O2 sat 99%, heart rate 95, afebrile GEN-alert, currently oriented to [place], [facility]. Appears depressed and is tearful at times HEENT-normocephalic, atraumatic, pupils are equal and reactive. Extraocular movements are intact. Oropharynx reveals poor dentition and mouth is moist NECK-supple, no lymphadenopathy CV-regular rate and rhythm without murmur CHEST-clear to auscultation bilaterally. Patient is very tender over the sternum and reproduces his chest tenderness. ABD-soft, nontender and non-distended with positive bowel sounds -no Fagan EXT-no edema, SCDs are on NEURO-sensation is intact in the medial thighs bilaterally and throughout the legs. Motor strength is 5 over 5 and equal in the bilateral lower extremities SKIN-warm and dry and without rashes Lab this morning reveals a sodium of 145 likely elevated from IV fluids. Remainder of recent metabolic profile is essentially normal. White count is 9.4 down from 11.7. Hemoglobin 11.6 down from 12.9. Platelets are normal. Neutrophils 66%, lymphs 23%. UA was negative. Urine drug screen is positive for opiates, benzodiazepine, Cannabinoids, tricyclics Serum is negative for salicylates, acetaminophen, and alcohol. EKG reveals sinus rhythm, rate 86, possible inferior NH, probably old. On my read I do not see any definite Q waves in the inferior leads. Troponin on blood from this morning was less than 0.012. Impression Suicide attempt/overdose of Ativan, Lomotil, ibuprofen Depression and anxiety Continued suicidal ideation Chest pain most likely musculoskeletal from sternal rub last evening Crohn's disease with history of colectomy Diarrhea with history of intermittent diarrhea Urinary incontinence at night over the past 1-1/2 weeks Low back pain with radiation down the right leg Mild hypernatremia post IV fluids Plan Continue to watch closely here in CCU on suicide precautions Psychiatry consultation regarding suicide attempt and continued depression, anxiety and suicidal ideation EKG and troponin regarding chest discomfort-repeat troponin now. Most likely this is musculoskeletal Discontinue IV fluids Obtain GI panel regarding diarrhea We will increase activity and consider CT or MRI back back pain is significant, considering his recent urinary incontinence. He does not have any numbness in the inner thighs. Hospital Course Summary Disclaimer: The visit summary below is not to be considered part of the above Progress Note.
[2017-04-03] MEDS ORDERED: POTASSIUM CHLORIDE INJ 20 MEQ in NS 1,000 ML IV SCH (22:22)
[2017-04-04] MEDS ORDERED: Oxycodone/Apap 10/325 1 TAB PO ONE (01:40)
[2017-04-04] MEDS: NICOTINE 21 MG PATCH TD PRN (01:55)
[2017-04-04] MEDS ORDERED: NS with KCL 20 mEq 1,000 ML IV SCH (06:15)
[2017-04-04] MEDS: azaTHIOprine 50 MG TABLET PO SCH (09:25)
[2017-04-04] MEDS: BUDESONIDE 3 MG PO SCH (09:25)
[2017-04-04] MEDS: MESALAMINE 250 MG PO SCH ×2 (09:25→20:25)
[2017-04-04] MEDS ORDERED: LORazepam 0.5 MG TABLET PO SCH (11:15)
--- NOTE | 2017-04-04 14:19 | Magnetic Resonance Report ---
MR lumbar spine wo con: Indication: Back pain radiating down right leg Comparison: None Technique: Multiplanar, multisequence, lumbar protocol MR imaging without contrast of the spine was acquired. FINDINGS: The alignment of the lumbar spine is normal. The conus medullaris, cauda equina, subarachnoid space, and spinal canal demonstrate no significant abnormality. There are no significant degenerative changes. The paraspinal soft tissues and prevertebral soft tissues appear unremarkable. Segmental analysis: L1-L2: Normal L2-L3: Demonstrates early degenerative changes but no marked posterior protrusion. Mild narrowing and slight loss of the bright signal is present. L3-L4: Normal L4-L5: Normal L5-S1: Shows broad-based degenerative changes with no marked spinal stenosis or neural foraminal narrowing. The disc is degenerated and has lost some height and bright signal as well. IMPRESSION: 1. Degenerative changes at the L5-S1 disc space with narrowing, loss of signal and broad-based disc bulging although, canal diameter still well-maintained and no neural foraminal narrowing seen. 2. No fractures or malalignments. .
[2017-04-04] MEDS: NICOTINE PATCH REMOVAL TD SCH (15:19)
[2017-04-04] MEDS ORDERED: ACETAMINOPHEN 500 MG TABLET PO PRN (15:55)
[2017-04-04] MEDS ORDERED: ONDANSETRON ODT 4 MG TABLET PO PRN ×2 (16:25→16:27)
[2017-04-04] MEDS ORDERED: HALOPERIDOL 1 MG TABLET PO PRN (18:44)
[2017-04-04] MEDS ORDERED: HALOPERIDOL 5 MG/ML INJECTION IM PRN (18:46)
[2017-04-04] MEDS: Oxycodone/Apap 10/325 1 TAB PO PRN (19:01)
--- NOTE | 2017-04-04 19:01 | Neuropsychiatric Consult ---
[facility] HPI Date: 04/04/17 Requesting Physician: Joyce Hutchison Reason for Consultation: SA Start Time: 18:00 Stop Time: 18:30 History of Present Illness: HPI: 36 Y/O CM admitted through the ED after OD on Flexeril and Ativan in a SA. Pt states he had a fight with his GF who is controlling. He states he took the OD with the intent of killing himself and still wishes he were . STRESSORS: Argument with . States is controlling. He also reports financial issues. PSYCH ROS: Pt reports feeling depressed with low energy and motivation, anhedonia, issues with sleep, and S/I. He reports feeling anxious and having panic type symptoms at times. He denies froilan or psychosis. PAST PSYCH: PT has had 3 hospitalizations in the past all for OD attempts. The last was this time last year. He is currently on Wellbutrin, Celexa, and Ativan by his PCP. [facility] Patient Stated Medical History Asthma Yes: as a child Other GI Yes: CROHNS DISEASE Depression Yes Substance Use Disorder Yes Other Behavioral Health Yes: [facility] Medical History (Last Updated 01/17/17 @ 11:36 by HOWARD Betancourt) Anxiety (Chronic Medical) Crohn disease (Chronic Medical) Depression (Chronic Medical) Surgical History: hip replacement. colectomy resection Family History: Family History (Last Updated 01/17/17 @ 11:38 by HOWARD Betancourt) Mother Arthritis High blood pressure High cholesterol Father High blood pressure Arthritis Paternal Grandfather Lung cancer Heart attack - Social History Smoking status: Current every day smoker Review of Systems - Psychiatric Psychiatric: Present: anhedonia, anxiety, depression, hopelessness, panic attacks, suicidal ideation Mental Status Exam Vitals: Last Vital Signs Temp 97.6 F 04/04/17 12:08 Pulse 82 04/04/17 18:00 Resp 18 04/04/17 18:00 BP 142/83 H 04/04/17 18:00 Pulse Ox 98 04/04/17 18:00 Height: 1.8 m Weight: 79.5 kg - Mental Status Exam Muscle Strength/Tone: Normal Dressing: Casual Grooming: Good Attitude: Guarded Motor Activity: Retardation Eye Contact: Fair Speech: Slowed Volume: Soft Rhythm: Appropriate Rhythm Orientation: Oriented X4 Mood: Depressed Affect: Sad Rate of Thoughts: Delayed Thought Organization: Organized Associations: Intact Thought Content: Normal Perception/Psychotic: Hx psychosis, not current Language: Naming Intact Fund of Knowledge: Appropriate Memory: Grossly Intact Suicidal Ideation: Persistent Homicidal Ideation: None Insight: Poor Judgement: Poor Impulse Control: Poor - Laboratory Result Diagrams: 04/04/17 04:08 04/04/17 04:08 Laboratory Results - last 24 hr 04/04/17 04/04/17 04/04/17 04:08 04:08 04:08 WBC 9.4 RBC 3.47 L Hgb 11.6 L Hct 34.9 L MCV 100.6 H MCH 33.4 MCHC 33.2 RDW Std Deviation 47.1 Plt Count 320 MPV 9.1 L Immature Gran % (Auto) 0.4 Neut % (Auto) 60.0 Lymph % (Auto) 23.3 Mariposa % (Auto) 9.4 H Eos % (Auto) 6.3 H Baso % (Auto) 0.6 Neut # (Auto) 5.7 Lymph # (Auto) 2.2 Mariposa # (Auto) 0.9 H Eos # (Auto) 0.6 H Baso # (Auto) 0.1 Abs Immat Gran (auto) 0.04 H Turbidity < 20 Sodium 145 H Potassium 3.9 Chloride 111 H Carbon Dioxide 28 Anion Gap 6 BUN 7.0 L Creatinine 0.9 GFR Calculation 95 BUN/Creatinine Ratio 8 Glucose 82 Calculated Osmolality 276 Calcium 8.8 Magnesium 2.2 Icterus Index < 2 Troponin I < 0.012 Specimen Hemolysis < 15 < 15 Stl Cyclospora species Stool Rotavirus A PCR Stool Adenovirus (PCR) Stool Astrovirus (PCR) Stool Campylobacter PCR Stl C.difficile Tox PCR Stool Cryptosporidium PCR Stl E.coli Shiga Toxins Stool E coli O157 PCR Stl Enterotoxigenic E PCR Stool EPEC (PCR) Stool EAEC (PCR) Stool Entamoeba (PCR) Stool Giardia Lamblia PCR Stool Salmonella PCR Stool Sapovirus (PCR) Stl P. shigelloides PCR Stl Shigella/EIEC PCR St Y.enterocolitica PCR Stool Vibrio (PCR) Stl Vibrio cholera PCR Stl Norovirus GI/GII PCR 04/04/17 04/04/17 10:34 16:20 WBC RBC Hgb Hct MCV MCH MCHC RDW Std Deviation Plt Count MPV Immature Gran % (Auto) Neut % (Auto) Lymph % (Auto) Mariposa % (Auto) Eos % (Auto) Baso % (Auto) Neut # (Auto) Lymph # (Auto) [place] # (Auto) Eos # (Auto) Baso # (Auto) Abs Immat Gran (auto) Turbidity Sodium Potassium Chloride Carbon Dioxide Anion Gap BUN Creatinine GFR Calculation BUN/Creatinine Ratio Glucose Calculated Osmolality Calcium Magnesium Icterus Index Troponin I < 0.012 Specimen Hemolysis < 15 Stl Cyclospora species Negative Stool Rotavirus A PCR Negative Stool Adenovirus (PCR) Negative Stool Astrovirus (PCR) Negative Stool Campylobacter PCR Negative Stl C.difficile Tox PCR Negative Stool Cryptosporidium PCR Negative Stl E.coli Shiga Toxins Negative Stool E coli O157 PCR N/a Stl Enterotoxigenic E PCR Negative Stool EPEC (PCR) Negative Stool EAEC (PCR) Negative Stool Entamoeba (PCR) Negative Stool Giardia Lamblia PCR Negative Stool Salmonella PCR Negative Stool Sapovirus (PCR) Negative Stl P. shigelloides PCR Negative Stl Shigella/EIEC PCR Negative St Y.enterocolitica PCR Negative Stool Vibrio (PCR) Negative Stl Vibrio cholera PCR Negative Stl Norovirus GI/GII PCR Negative Assessment and Plan (1) Major depressive disorder with current active episode Qualifiers: Major depression recurrence: recurrent Major depression episode severity: severe Psychotic features: without psychotic features Qualified Code(s): F33.2 - Major depressive disorder, recurrent severe without psychotic features Current visit: Yes Status: Acute Continue medical management. Pt will need IP psychiatric treatment when medically stable. Do not allow pt to leave AMA. Will hold home psych meds at this time due to OD but will start Haldol and Ativan PRN for agitation
[2017-04-04] MEDS: LORazepam 1 MG TABLET PO PRN (19:51)
[2017-04-04] MEDS ORDERED: MELATONIN 1 MG TABLET PO ONE (23:00)
[2017-04-05] MEDS: Oxycodone/Apap 10/325 1 TAB PO PRN ×2 (06:01→16:31)
[2017-04-05] MEDS: NICOTINE PATCH REMOVAL TD SCH (09:00)
[2017-04-05] MEDS: NICOTINE 21 MG PATCH TD PRN (09:00)
[2017-04-05] MEDS: MESALAMINE 250 MG PO SCH (09:27)
[2017-04-05] MEDS: azaTHIOprine 50 MG TABLET PO SCH (09:28)
[2017-04-05] MEDS: BUDESONIDE 3 MG PO SCH (09:28)
[2017-04-05] MEDS: LORazepam 1 MG TABLET PO PRN ×2 (10:42→16:31)
[2017-04-05 10:54] VITALS: TEMP 98
[2017-04-05 14:07] VITALS: BP 138/84; PULSE 109; RESP 19; O2SAT 91
--- NOTE | 2017-04-05 15:04 | Discharge Summary ---
Discharge Information Date of admission: 04/03/17 20:48 Anticipated date of discharge: 04/05/17 Attending Physician: Joyce Hutchison MD Primary care physician: Dr. Song Duarte Consults: 04/04/17 07:26 Physician Consult [CONS] Routine Consulting Provider: Carol Ann Samayoa Reason For Exam: overdose, suicide attempt Ordering Provider has Notified Em Physician: Yes Comment: generations unit nurse notified - Discharge Diagnosis (1) Polysubstance overdose Status: Acute - Procedures Procedures: none - Laboratory Labs: 04/04/17 04:08 04/04/17 04:08 Laboratory Tests 04/03/17 04/03/17 04/03/17 19:07 19:07 19:07 WBC 11.7 H Hgb 12.9 L Plt Count 351 Sodium Potassium Chloride Carbon Dioxide Anion Gap BUN Creatinine GFR Calculation BUN/Creatinine Ratio Glucose Calculated Osmolality Calcium Magnesium Total Bilirubin 0.60 Icterus Index < 2 AST 26 ALT 34 Alkaline Phosphatase 96 Troponin I Total Protein 8.0 Albumin 4.0 Globulin 4.0 H Albumin/Globulin Ratio 1.0 L Ur Collection Type Urine Color Urine Clarity Urine pH Ur Specific Gap Urine Protein Urine Glucose (UA) Urine Ketones Urine Occult Blood Urine Nitrate Urine Bilirubin Urine Urobilinogen Ur Leukocyte Esterase Urinalysis Comment Stl Cyclospora species Stool Rotavirus A PCR Stool Adenovirus (PCR) Stool Astrovirus (PCR) Stool Campylobacter PCR Stl C.difficile Tox PCR Stool Cryptosporidium PCR Stl E.coli Shiga Toxins Stool E coli O157 PCR Stl Enterotoxigenic E PCR Stool EPEC (PCR) Stool EAEC (PCR) Stool Entamoeba (PCR) Stool Giardia Lamblia PCR Stool Salmonella PCR Stool Sapovirus (PCR) Stl P. shigelloides PCR Stl Shigella/EIEC PCR St Y.enterocolitica PCR Stool Vibrio (PCR) Stl Vibrio cholera PCR Stl Norovirus GI/GII PCR Salicylates < 1.0 L Urine Opiates Screen Positive Ur Oxycodone Screen Negative Urine Methadone Screen Negative Ur Propoxyphene Screen Negative Acetaminophen < 10 L Ur Barbiturates Screen Negative U Tricyclic Antidepress Positive Ur Phencyclidine Scrn Negative Ur Amphetamines Screen Negative U Methamphetamines Scrn Negative U Benzodiazepines Scrn Positive Urine Cocaine Screen Negative U Cannabinoids Screen Positive Alcohol, Quantitative <10 04/04/17 04/04/17 04/04/17 04:08 04:08 10:34 WBC Hgb Plt Count Sodium 145 H Potassium 3.9 Chloride 111 H Carbon Dioxide 28 Anion Gap 6 BUN 7.0 L Creatinine 0.9 GFR Calculation 95 BUN/Creatinine Ratio 8 Glucose 82 Calculated Osmolality 276 Calcium 8.8 Magnesium 2.2 Total Bilirubin Icterus Index AST ALT Alkaline Phosphatase Troponin I < 0.012 < 0.012 Total Protein Albumin Globulin Albumin/Globulin Ratio Ur Collection Type Urine Color Urine Clarity Urine pH Ur Specific Gap Urine Protein Urine Glucose (UA) Urine Ketones Urine Occult Blood Urine Nitrate Urine Bilirubin Urine Urobilinogen Ur Leukocyte Esterase Urinalysis Comment Stl Cyclospora species Stool Rotavirus A PCR Stool Adenovirus (PCR) Stool Astrovirus (PCR) Stool Campylobacter PCR Stl C.difficile Tox PCR Stool Cryptosporidium PCR Stl E.coli Shiga Toxins Stool E coli O157 PCR Stl Enterotoxigenic E PCR Stool EPEC (PCR) Stool EAEC (PCR) Stool Entamoeba (PCR) Stool Giardia Lamblia PCR Stool Salmonella PCR Stool Sapovirus (PCR) Stl P. shigelloides PCR Stl Shigella/EIEC PCR St Y.enterocolitica PCR Stool Vibrio (PCR) Stl Vibrio cholera PCR Stl Norovirus GI/GII PCR Salicylates Urine Opiates Screen Ur Oxycodone Screen Urine Methadone Screen Ur Propoxyphene Screen Acetaminophen Ur Barbiturates Screen U Tricyclic Antidepress Ur Phencyclidine Scrn Ur Amphetamines Screen U Methamphetamines Scrn U Benzodiazepines Scrn Urine Cocaine Screen U Cannabinoids Screen Alcohol, Quantitative 04/04/17 04/05/17 16:20 12:02 WBC Hgb Plt Count Sodium Potassium Chloride Carbon Dioxide Anion Gap BUN Creatinine GFR Calculation BUN/Creatinine Ratio Glucose Calculated Osmolality Calcium Magnesium Total Bilirubin Icterus Index AST ALT Alkaline Phosphatase Troponin I Total Protein Albumin Globulin Albumin/Globulin Ratio Ur Collection Type Urine, clean catch Urine Color Yellow Urine Clarity Clear Urine pH 6.0 Ur Specific Gap 1.020 Urine Protein Negative Urine Glucose (UA) Negative Urine Ketones Negative Urine Occult Blood Trace-intact Urine Nitrate Negative Urine Bilirubin Negative Urine Urobilinogen 0.2 Ur Leukocyte Esterase Negative Urinalysis Comment Microscopic not ind. Stl Cyclospora species Negative Stool Rotavirus A PCR Negative Stool Adenovirus (PCR) Negative Stool Astrovirus (PCR) Negative Stool Campylobacter PCR Negative Stl C.difficile Tox PCR Negative Stool Cryptosporidium PCR Negative Stl E.coli Shiga Toxins Negative Stool E coli O157 PCR N/a Stl Enterotoxigenic E PCR Negative Stool EPEC (PCR) Negative Stool EAEC (PCR) Negative Stool Entamoeba (PCR) Negative Stool Giardia Lamblia PCR Negative Stool Salmonella PCR Negative Stool Sapovirus (PCR) Negative Stl P. shigelloides PCR Negative Stl Shigella/EIEC PCR Negative St Y.enterocolitica PCR Negative Stool Vibrio (PCR) Negative Stl Vibrio cholera PCR Negative Stl Norovirus GI/GII PCR Negative Salicylates Urine Opiates Screen Ur Oxycodone Screen Urine Methadone Screen Ur Propoxyphene Screen Acetaminophen Ur Barbiturates Screen U Tricyclic Antidepress Ur Phencyclidine Scrn Ur Amphetamines Screen U Methamphetamines Scrn U Benzodiazepines Scrn Urine Cocaine Screen U Cannabinoids Screen Alcohol, Quantitative - Radiology Radiology: Date of Exam: 04/04/17 Ordering Provider: Joyce Hutchison MD Type of Exam(s): MR lumbar spine wo con Reason for Exam(s): back pain, rad down right leg, urinary incontinence (new) MR lumbar spine wo con: Indication: Back pain radiating down right leg Comparison: None Technique: Multiplanar, multisequence, lumbar protocol MR imaging without contrast of the spine was acquired. FINDINGS: The alignment of the lumbar spine is normal. The conus medullaris, cauda equina, subarachnoid space, and spinal canal demonstrate no significant abnormality. There are no significant degenerative changes. The paraspinal soft tissues and prevertebral soft tissues appear unremarkable. Segmental analysis: L1-L2: Normal L2-L3: Demonstrates early degenerative changes but no marked posterior protrusion. Mild narrowing and slight loss of the bright signal is present. L3-L4: Normal L4-L5: Normal L5-S1: Shows broad-based degenerative changes with no marked spinal stenosis or neural foraminal narrowing. The disc is degenerated and has lost some height and bright signal as well. IMPRESSION: 1. Degenerative changes at the L5-S1 disc space with narrowing, loss of signal and broad-based disc bulging although, canal diameter still well-maintained and no neural foraminal narrowing seen. 2. No fractures or malalignments. . History of Present Illness HPI: 36-year-old male presents to the [facility] ER tonight after an apparent suicidal gesture with drug ingestion/overdose. Per the ER physician, he engaged in an argument with his girlfriend earlier today. He subsequently ingested Ativan and Flexeril at around 6 o'clock this evening. He arrived to the ER via EMS approximately 30 minutes after the ingestion. It is unknown exactly how much Ativan and Flexeril he ingested, but based on his prescription and when it was filled, perhaps up to 30 mg of Ativan and up to 300 mg of Flexeril. He has a reported history of suicidal gestures and overdoses in his past. He was given flumazenil times 2 doses in route by EMS. He arrived lethargic, but protecting his airway. While in the ER, he has been given a couple leaders of IV fluids. His hemodynamic and respiratory status have both been stable. He is on room air. Laboratory results are unremarkable. Toxicology screen is positive for TCA, benzos, opiates, cannabinoids. ER physician is requesting admission to the ICU this evening for close monitoring, suicide precautions, and psychiatric consultation in the morning. Please note: This patient encounter was performed via the use of telemedicine technology. HPI by Dr Hutchison- Chief complaint: Suicide attempt with overdose of Ativan, Lomotil and ibuprofen History of present illness: The patient is seen this morning in CCU accompanied by his mother. The patient is a 36-year-old male with history of depression and anxiety and history of Crohn's disease with colectomy. He does not have a colostomy at this time. He states that he has had fleeting suicidal thoughts off and on but this past weekend he was having more suicidal thoughts. He told his mother yesterday that he wanted to be admitted to a long-term psychiatric hospital for depression. He and his have not been getting along. The patient states that last evening he took an overdose of Ativan, Lomotil and ibuprofen in an attempt to kill himself. He apparently walked down the stairs and then collapsed on the floor in front of his . Per the patient's mom, the patient's left him at home with her parents and called the patient's mother. The patient's mother arrived and called 911. EMS attempted to awaken him with sternal rub to no avail and they treated him with Romazicon 2 and he was brought into the emergency room. He was given IV fluids. He was able to protect his airway overnight in CCU. He became more alert and responsive around 2-4 a.m. per his nurse. This morning, the patient states he still feels suicidal and depressed. He does want to visit with a psychiatrist. He states that he thinks he has DPOA paperwork saying that his his DPOA, but now he wants his mother to make medical decisions if he cannot make them himself. When I first talked with him he said he was at [place] but quickly then changed and said he was at [facility]. He knew was March and [place] was the president. He thought it was 1986. Later when I asked him the year he knew it was 2016. This morning he states he feels "drained" and has some chest pressure and states his chest feels bruised. This is most likely from sternal rub. He appears tearful and mildly anxious. He admits to some mild shortness of breath. He states he's been having more diarrhea than usual. He's had some intermittent nausea. He complains of some right shoulder pain. He states he's been incontinent of urine off and on the past 1-1/2 weeks. He also complains of low back pain radiating down his right hip and leg to about the knee. He denies any numbness, tingling or weakness. He has some mild rhinitis from allergies. Objective Vital signs: Temperature 98.0 F 04/05/17 09:00 Pulse Rate 109 H 04/05/17 12:45 Respiratory Rate 19 04/05/17 12:45 Blood Pressure 138/84 04/05/17 11:00 Pulse Oximetry 91 04/05/17 13:34 Height/Weight/BMI: Height 1.8 m Weight 79.5 kg Body Mass Index 23.0 Hospital Course This is a general summary of the patient's hospital course. For more details refer to the complete medical record. Hospital course: Impression Suicide attempt/overdose of Ativan, Lomotil, ibuprofen Depression and anxiety Continued suicidal ideation Chest pain most likely musculoskeletal from sternal rub by EMS Crohn's disease with history of colectomy Diarrhea with history of intermittent diarrhea Urinary incontinence at night over the past 1-1/2 weeks-MRI of low back does not show any cause for urinary incontinence Low back pain with radiation down the right leg-MRI low back obtained. Please see results above Mild hypernatremia post IV fluids Urine drug screen positive for opiates, tricyclics, benzodiazepines, and cannabinoids The patient was admitted on the evening of 04/03/2017 after overdosing on Ativan , Lomotil and ibuprofen. He was somnolent initially but this has resolved. On the day after admission he stated he was still depressed and still having thoughts of suicide. He was evaluated by Dr. Samayoa who recommended inpatient psychiatric treatment. Plans are for transfer to [place] for inpatient psychiatric treatment on 04/05/2017. The patient did complain of chronic low back pain with some radiation down the right leg. MRI was obtained with results as above. He has been up walking without difficulties. He also complained of recent urinary incontinence. MRI findings do not explain his incontinence of urine and he would likely benefit from seeing a urologist as an outpatient. He does have intermittent diarrhea from his history of Crohn's disease and history of colectomy. GI panel was negative for infectious process. The patient is medically stable for transfer. The patient has been eating and drinking well. He will need to follow-up with his primary care physician after discharge. Greater than 30 minutes time spent seeing and evaluating the patient, talking with patient and family, and talking with case management, and arranging discharge on dismissal day. Discharge Plan - Med Rec/Dispo Referrals/Follow Up: Song Duarte MD [Physician] - Additional Instructions: Consider establishing with the urologist regarding urinary incontinence Prescriptions: New Acetaminophen [Tylenol] 1,000 mg PO Q6H PRN tablet PRN Reason: Discomfort Nicotine Patch [Nicoderm] 21 mg TD DAILY PRN #30 patch PRN Reason: Agitation Ondansetron Odt [Zofran Po] 4 mg PO Q6H PRN tablet PRN Reason: Nausea &/Or Vomiting Nicotine Patch Removal 1 removal TD DAILY patch Continue azaTHIOprine [Imuran] 100 mg PO DAILY Hydrocortisone Sod Succinate [Solu-CORTEF] 100 mg IM Q2M Diphenoxylate/Atropine [Lomotil] 1 tab PO QID PRN PRN Reason: Diarrhea Mesalamine [Pentasa] 1,000 mg PO BID Budesonide [Entocort EC] 9 mg PO DAILY Infliximab [Remicade] 100 mg IV Q2M Oxycodone/Apap 10/325 [Percocet 10/325] 1 tab PO Q6H PRN PRN Reason: Pain Discontinued Cyclobenzaprine [Flexeril] 10 mg PO TID PRN PRN Reason: Prn Orders BuPROPion XL [Wellbutrin Xl] 300 mg PO DAILY LORazepam [Ativan] 0.5 mg PO BID PRN PRN Reason: Prn Orders Citalopram [Celexa] 40 mg PO HS Discharge Instructions/Outpatient Orders: Provider Discharge Instructions Location: Determined By Patient - Disposition 65 To Psych Hosp/Unit
[2017-04-05] MEDS ORDERED: MELATONIN PO SCH (21:00)
[2017-04-05] MEDS ORDERED: MELATONIN 1 MG TABLET PO ONE (23:00)
== END 2017-04-05 17:55 | DRG 918 ==
LOC: ED 18:49 → CCU 20:48 → SUATTDRO 20:48 → CCU 21:25
PROVIDERS: ADMIT Hospitalist; ATTEND Internal Medicine